=== PATIENT | female | born 1985 | race Caucasian/White ===

== ENCOUNTER 2023-07-08 09:59 | Outpatient (CLI) | payer OTHER, SELFPAY ==
[2023-07-08 18:46] LABS: Hematocrit 43.2 % (37.0-47.0); Hemoglobin 13.6 g/dL (12.0-15.0); Mean Corpuscular HGB Conc 31.5 g/dl (32-36); Mean Corpuscular Hemoglobin 31.1 pg (26-34); Mean Corpuscular Volume 98.9 fl (80-100); Mean Platelet Volume 10.7 fl (7.4-10.4); Platelet Count Result 329 k/mm3 (150-375); Red Blood Count 4.37 M/mm3 (4.2-5.4); Red Cell Distribution Width 12.6 % (11.5-14.5); White Blood Count 8.5 K/mm3 (4.5-10.0)
[2023-07-08 19:24] LABS: Alanine Aminotransferase 16 U/L (6-35); Albumin Level 4.3 g/dL (3.5-5.1); Alkaline Phosphatase 65 U/L (38-126); Anion Gap 7 mmol/L (8-16); Aspartate Amino Transferase 58 U/L (14-36); Bilirubin,Total 0.4 mg/dL (0.2-1.3); Blood Urea Nitrogen 10 mg/dL (7-17); Calcium 9.7 mg/dL (8.4-10.2); Carbon Dioxide 29 mmol/L (22-30); Chloride 105 mmol/L (98-107); Cholesterol 193 mg/dL (0-200); Estimated Glomerular Filt Rate > 60; Glucose 96 mg/dL (65-110); HDL Direct 53 mg/dL; Potassium 4.6 mmol/L (3.4-5.0); Sodium 141 mmol/L (137-145); Triglycerides 49 mg/dL (<150)
[2023-07-08 19:37] LABS: LDL Cholesterol Direct 126 mg/dL
== END 2023-07-08 10:00 | disposition home or self-care (01) ==
PROVIDERS: PCP Nurse Practitioner Adult Health; Visit Provider Nurse Practitioner Adult Health
DX: Z13.9 Encounter for screening, unspecified (principal); E07.9 Disorder of thyroid, unspecified; F41.9 Anxiety disorder, unspecified
CPT/HCPCS: 36415; 80053; 80061; 84443; 85027

== ENCOUNTER 2024-07-19 11:27 | Outpatient (CLI) | payer OTHER, SELFPAY ==
--- OUTSIDE RECORDS SUMMARY | 2024-07-19 12:46 | XMS_ITS | Encounter Summary ---
Author Organization [facility] Address [address] [place] [address] Care Team Providers Care Gas Plant Operator Name Role Phone Jameel Gorman MD Primary Care Provider [phone] Encounter Details Date Type Department Care Team (Late st Contact Info) Description 06/30/2007 Outpatient Historical [facility] [place] [address] [place] [address] Gurpreet Lew MD [address] [place] [address] Palpitations Social History Tobacco Use Types Packs/Day Years Used Date Smoking Tobacco: Never Assessed Comments Unknown Sex and Gender Information Value Date Recorded Sex Assigned at Not on file Legal Sex Female 3:43 AM AWNING HANGER Gender Identity Not on file Sexual Orientation Not on file documented as of this encounter Plan of Treatment Not on file documented as of this encounter Procedures Procedure Name Priority Date/Time Associated Diagnosis Comments CBC WITH DIFFERENTIAL Routine 06/30/2007 10:33 AM AWNING HANGER CBC WITH DIFFERENTIAL Routine 06/30/2007 10:33 AM AWNING HANGER TSH Routine 06/30/2007 10:33 AM AWNING HANGER MAGNESIUM LEVEL Routine 06/30/2007 10:33 AM AWNING HANGER LIPID PANEL Routine 06/30/2007 10:33 AM AWNING HANGER COMPREHENSIVE METABOLIC PANEL Routine 06/30/2007 10:33 AM AWNING HANGER documented in this encounter Results * CBC WITH DIFFERENTIAL (06/30/2007 10:33 AM AWNING HANGER) NEUTROPHILS 62 45 - 70 % INTERFAC E SYSTEM LYMPHOCYTES 28 16 - 45 % INTERFAC E SYSTEM MONOCYTES 7 3 - 13 % INTERFACE SYSTEM EOSINOPHILS 2 0 - 7 % INTERFAC E SYSTEM BASOPHILS 0 0 - 2 % INTERFACE SYSTEM NEUTROPHIL ABSOLUTE 4.95 1.90 - 7.00 K/uL INTERFACE SYSTEM LYMPHOCYTE ABSOLUTE 2.23 0.70 - 4.50 K/uL INTERFACE SYSTEM MONOCYTE ABSOLUTE 0.57 0.10 - 1.30 K/uL INTERFACE SYSTEM EOSINOPHIL ABSOLUTE 0.15 0.00 - 0.70 K/uL INTERFACE SYSTEM BASOPHILS ABSOLUTE 0.02 0.00 - 0.20 K/uL INTERFACE SYSTEM 06/30/2007 10:3 3 AM AWNING HANGER us Gurpreet Lwe MD HEMATOLOGY ORDERABLES Ed ited INTERFACE SYSTEM Refer to clinic/hospital department * (ABNORMAL) CBC WITH DIFFERENTIAL (06/30/2007 10:33 AM AWNING HANGER) Pathologist [facility] [place] WBC 7.9 4.0 - 9.8 K/uL INTERFACE SYSTEM RBC 4.66 3.90 - 4.90 M/uL INTERFACE SYSTEM HEMOGLOBIN 14.2 11.8 - 14.8 g/dL INTERFACE SYSTEM HEMATOCRIT 41.5 35.5 - 44.0 % INTERFACE SYSTEM MCV 89.1 82.0 - 99.0 fL INTERFACE SYSTEM MCH 30.5 27.2 - 32.6 pg INTERFACE SYSTEM MCHC 34.2 31.5 - 35.5 % INTERFACE SYSTEM RDW 12.6 11.5 - 14.5 % INTERFACE SYSTEM RDW-STDEV 39.9 37.1 - 48.7 fL INTERFACE SYSTEM PLATELETS 368(H) 140 - 350 K/uL INTERFACE SYSTEM MPV 10.9 9.3 - 12.4 fL INTERFACE SYSTEM 06/30/2007 10:3 3 AM AWNING HANGER Gurpreet Lew MD HEMATOLOGY ORDERABLES Ed ited INTERFACE SYSTEM Refer to clinic/hospital department * TSH (06/30/2007 10:33 AM AWNING HANGER) TSH 1.98 0.27 - 4.20 uU/mL INTERFACE SYSTEM 06/30/2007 10:3 3 AM AWNING HANGER Gurpreet Lew MD CHEMISTRY ORDERABLES Mynor mason Performing Organization Address City/[facility] Co de Phone Number INTERFACE SYSTEM Refer to clinic/hospital department * MAGNESIUM LEVEL (06/30/2007 10:33 AM AWNING HANGER) MAGNESIUM 2.1 1.5 - 2.5 mg/dL INTERFACE SYSTEM 06/30/2007 10:3 3 AM AWNING HANGER Gurpreet Lew MD CHEMISTRY ORDERABLES Mynor mason Performing Organization Address [facility] Co de Phone Number INTERFACE SYSTEM Refer to clinic/hospital department * (ABNORMAL) COMPREHENSIVE METABOLIC PANEL (06/30/2007 10:33 AM AWNING HANGER) GLUCOSE 88 65 - 99 mg/dL INTERFACE SYSTEM CREATININE 0.66 0.51 - 0.95 mg/dL INTERFACE SYSTEM CALCIUM 9.0 8.6 - 10.2 mg/dL INTERFACE SYSTEM AST 12 12 - 32 U/L INTERFACE SYSTEM ALKALINE PHOSPHATASE 61 35 - 104 U/L INTERFACE SYSTEM BILIRUBIN TOTAL 0.1(L) 0.2 - 1.0 mg/dL INTERFACE SYSTEM ALBUMIN 4.1 3.4 - 4.8 g/dL INTERFACE SYSTEM TOTAL PROTEIN 7.0 6.0 - 8.3 g/dL INTERFACE SYSTEM ALT 11 0 - 31 U/L INTERFACE SYSTEM BUN 8 6 - 20 mg/dL INTERFACE SYSTEM SODIUM 140 135 - 145 mmol/L INTERFACE SYSTEM POTASSIUM 4.0 3.5 - 4.9 mmol/L INTERFACE SYSTEM CHLORIDE 104 96 - 108 mmol/L INTERFACE SYSTEM CO2 28 22 - 30 mmol/L INTERFACE SYSTEM GFR, >60 >=60 mL/min/1. 7 sq meter INTERFACE SYSTEM GFR >60 >=60 mL/min/1. 7 sq meter INTERFACE SYSTEM Comment: Estimated GFR rate interpretative information for both Americans and non- Americans is available on the [facility] Intranet at: [email or web address] Select: Lab Policies and Procedures Select: Reference Ranges - GFR 06/30/2007 10:3 3 AM AWNING HANGER Gurpreet Lew MD CHEMISTRY ORDERABLES Mynor mason Performing Organization Address [facility] Phone Number INTERFACE SYSTEM Refer to clinic/hospital department * (ABNORMAL) LIPID PANEL (06/30/2007 10:33 AM AWNING HANGER) CHOLESTEROL 164 100 - 199 mg/dL INTERFACE SYSTEM TRIGLYCERIDE 51 10 - 149 mg/dL INTERFACE SYSTEM HDL 36(L) 40 - 59 mg/dL INTERFACE SYSTEM LDL CALCULATED 118(H) <=99 mg/dL INTERFACE SYSTEM CHOL/HDL RATIO 4.6 2.0 - 5.0 INTER FACE SYSTEM LIPID PANEL COMMENT See Below INTERFACE SYSTEM Comment: The adult ATP and pediatric NCEP classifications for lipids are available on the [facility] Intranet at: [email or web address] Select: Lab Policies and Procedures,Current Select: Lipid Panel Interpretation 06/30/2007 10:3 3 AM AWNING HANGER Gurpreet Lew MD CHEMISTRY ORDERABLES Mynor mason Performing Organization Address [facility] Co de Phone Number INTERFACE SYSTEM Refer to clinic/hospital department documented in this encounter Visit Diagnoses Diagnosis Palpitations documented in this encounter Care Teams Gas Plant Operator Relationship Specialty Start Date End Date Jameel Gorman MD PCP - General 11/23/08 documented as of this encounter
--- OUTSIDE RECORDS SUMMARY | 2024-07-19 12:46 | XMS_ITS | Encounter Summary ---
Author Organization [facility] Address [address] [place] [address] Care Team Providers Care Television Installer Name Role Phone Jameel Gorman MD Primary Care Provider [phone] Encounter Details Date Type Department Care Team (Late st Contact Info) Description 08/14/2007 Outpatient Historical [facility], Authorized P NO ADDRESS ON FILE Mook Rodgers MD [address] [place] [address] Social History Tobacco Use Types Packs/Day Years Used Date Smoking Tobacco: Never Assessed Comments Unknown Sex and Gender Information Value Date Recorded Sex Assigned at Not on file Legal Sex Female 3:43 AM CAPTAIN ROOM SERVICE Gender Identity Not on file Sexual Orientation Not on file documented as of this encounter Plan of Treatment Not on file documented as of this encounter Procedures Procedure Name Priority Date/Time Associated Diagnosis Comments US PELVIS + TRANSVAG NON OB Stat 08/14/2007 11:00 AM CAPTAIN ROOM SERVICE CBC WITH DIFFERENTIAL Stat 08/14/2007 10:19 AM CAPTAIN ROOM SERVICE LIPASE Stat 08/14/2007 10:19 AM CAPTAIN ROOM SERVICE HEPATIC FUNCTION PANEL Stat 08/14/2007 10:19 AM CAPTAIN ROOM SERVICE BASIC METABOLIC PANEL Stat 08/14/2007 10:19 AM CAPTAIN ROOM SERVICE URINALYSIS WITH REFLEX CULTURE Stat 08/14/2007 10:10 AM CAPTAIN ROOM SERVICE URINALYSIS W/REFLEX MICROSCOPIC Stat 08/14/2007 10:10 AM CAPTAIN ROOM SERVICE HCG QUALITATIVE, URINE Stat 08/14/2007 10:10 AM CAPTAIN ROOM SERVICE documented in this encounter Results * US PELVIS + TRANSVAG NON OB (08/14/2007 11:00 AM CAPTAIN ROOM SERVICE) Anatomical Region Laterality Modality Pelvis Other 08/14/2007 11:0 0 AM CAPTAIN ROOM SERVICE Narrative 08/14/2007 11:58 AM CAPTAIN ROOM SERVICE [address] [address] Admit Date: 08/14/2007 JOSE ANGELA R Sex: F Admit Prov: ER, AUTHORIZED P Date: 1985 Primary Care Prov: JIMI MCGARRY CMRN: [id number] Room: [facility] SSN: [id number] IMAGING SERVICES Ordering Prov: N/A Accession Number: [id number] Interpretation TRANSABDOMINAL PELVIC ULTRASOUND, 08/14/2007 History: Left pelvic pain. Findings: Patient reportedly refused endovaginal exam. The bladder is not filled. This in combination with patient's body habitus results in grossly suboptimal exam. The uterus is approximately 6.7 cm in length. The endometrium is poorly visualized. No large adnexal mass is seen. The uterus is approximately 3.2 cm in anterior-posterior dimension and 4.1 cm in width. Right ovary is approximately 3.9 x 2.1 cm in anterior-posterior dimension in length. The left ovary is approximately 2 x 2 x 3.1 cm. No cyst is seen. Summary: Limited exam. No definite abnormality. . Dictated by: MELISSA LU 08/14/2007 11:28 Electronically signed by: MELISSA LU 08/14/2007 11:58 Transcribed: 08/14/2007 11:39 MD Procedure Note Provider, Historical - 08/14/[address], [place] [address] Admit Date: 08/14/2007 ANGELA DOSHI Sex: F Admit Prov: YANCI NEWTON Date: 1985 Primary Care Prov: JIMI MCGARRY CMRN: [id number] [id number] IM[facility]ING [facility] Ordering Prov: N/A Interpretation TRANSABDOMINAL PELVIC ULTRASOUND, 08/14/2007 History: Left pelvic pain. Findings: Patient reportedly refused endovaginal exam. The bladder isnot filled. This in combination with patient's body habitus results ingrossly suboptimal exam. The uterus is approximately 6.7 cm in length. The endometrium is poorly visualized. No large adnexal mass is seen. Theuterus is approximately 3.2 cm in anterior-posterior dimension and 4.1 cmin width. Right ovary is approximately 3.9 x 2.1 cm inanterior-posterior dimension in length. The left ovary is approximately 2 x 2 x 3.1 cm.No cyst is seen. Summary: Limited exam. No definite abnormality. . Dictated by: MELISSA LU 08/14/2007 11:28 Electronically signed by: MELISSA LU 08/14/2007 11:58 Transcribed: 08/14/2007 11:39 MD Mook Rodgers MD ORDERABLES Final Result * (ABNORMAL) CBC WITH DIFFERENTIAL (08/14/2007 10:19 AM CAPTAIN ROOM SERVICE) RBC 4.72 3.90 - 4.90 M/uL [facility] MCHC 33.7 31.5 - 35.5 % [facility] MCV 89.2 82.0 - 99.0 fL [facility] PLATELETS 351(H) 140 - 350 K/uL [facility] HEMOGLOBIN 14.2 11.8 - 14.8 g/dL [facility] RDW 12.5 11.5 - 14.5 % [facility] WBC 8.7 4.0 - 9.8 K/uL [facility] MPV 10.3 9.3 - 12.4 fL [facility] MCH 30.1 27.2 - 32.6 pg [facility] HEMATOCRIT 42.1 35.5 - 44.0 % [facility] RDW-STDEV 39.7 37.1 - 48.7 fL [facility] LYMPHOCYTES 31 16 - 45 % [facility] LYMPHOCYTE ABSOLUTE 2.70 0.70 - 4.50 K/uL [facility] BASOPHILS 0 0 - 2 % [facility] BASOPHILS ABSOLUTE 0.02 0.00 - 0.20 K/uL [facility] MONOCYTES 5 3 - 13 % [facility] MONOCYTE ABSOLUTE 0.47 0.10 - 1.30 K/uL [facility] NEUTROPHILS 61 45 - 70 % [facility] NEUTROPHIL ABSOLUTE 5.36 1.90 - 7.00 K/uL [facility] EOSINOPHILS 2 0 - 7 % [facility] EOSINOPHIL ABSOLUTE 0.19 0.00 - 0.70 K/uL [facility] Blood specimen (specimen) 08/14/2007 10:19 AM CAPTAIN ROOM SERVICE 08/14/2007 10:20 AM CAPTAIN ROOM SERVICE us Mook Rodgers MD HEMATOLOGY ORDERABLES Edited [facility] [address] [place] [address] * (ABNORMAL) HEPATIC FUNCTION PANEL (08/14/2007 10:19 AM CAPTAIN ROOM SERVICE) BILIRUBIN TOTAL 0.3 0.2 - 1.0 mg/dL [facility] ALT 10 0 - 31 U/L [facility] AST 11(L) 12 - 32 U/L [facility] ALBUMIN 4.2 3.4 - 4.8 g/dL [facility] BILIRUBIN DIRECT <0.1 0.0 - 0.3 mg/dL [facility] TOTAL PROTEIN 7.4 6.0 - 8.3 g/dL [facility] ALKALINE PHOSPHATASE 62 35 - 104 U/L [facility] Blood specimen (specimen) 08/14/2007 10:19 AM CAPTAIN ROOM SERVICE 08/14/2007 10:20 AM CAPTAIN ROOM SERVICE Mook Rodgers MD CHEMISTRY ORDERABLES Final Res ult Performing Organization Address [facility] Co de Phone Number [facility] [address] [place] [address] * LIPASE (08/14/2007 10:19 AM CAPTAIN ROOM SERVICE) LIPASE 21 13 - 60 U/L [facility] Blood specimen (specimen) 08/14/2007 10:19 AM CAPTAIN ROOM SERVICE 08/14/2007 10:20 AM CAPTAIN ROOM SERVICE us Mook Rodgers MD CHEMISTRY ORDERABLES Final Res ult Performing Organization Address [facility] de Phone Number [facility] [address] [place] [address] * (ABNORMAL) BASIC METABOLIC PANEL (08/14/2007 10:19 AM CAPTAIN ROOM SERVICE) CO2 29 22 - 30 mmol/L [facility] CALCIUM 9.4 8.6 - 10.2 mg/dL [facility] POTASSIUM 3.9 3.5 - 4.9 mmol/L [facility] GLUCOSE 100(H) 65 - 99 mg/dL [facility] CHLORIDE 105 96 - 108 mmol/L [facility] BUN 8 6 - 20 mg/dL [facility] CREATININE 0.63 0.51 - 0.95 mg/dL [facility] SODIUM 141 135 - 145 mmol/L [facility] GFR, >60 >=60 mL/min/1. 7 sq meter [facility] GFR >60 >=60 mL/min/1. 7 sq meter [facility] Comment: Estimated GFR rate interpretative information for both Americans and non- Americans is available on the [facility] Intranet at: [email or web address] Select: Lab Policies and Procedures Select: Reference Ranges - GFR Blood specimen (specimen) 08/14/2007 10:19 AM CAPTAIN ROOM SERVICE 08/14/2007 10:20 AM CAPTAIN ROOM SERVICE Mook Rodgers MD CHEMISTRY ORDERABLES Edited Performing Organization Address City/[facility]/ZIP Co de Phone Number [facility] [address] [place] [address] * URINALYSIS (08/14/2007 10:10 AM CAPTAIN ROOM SERVICE) COLOR UA Yellow [facility] NITRITE UA Negative Negative [facility] BILIRUBIN UA Negative Negative [facility] PH UA 6.5 5.0 - 8.0 [facility] KETONES UA Negative Negative [facility] CLARITY UA Clear Clear [facility] BLOOD UA Negative Negative [facility] PROTEIN UA Negative Negative [facility] LEUKOCYTE ESTERASE UA Negative Negative [facility] UROBILINOGEN UA <1 <1 mg/dL [facility] SPECIFIC GRAVITY UA 1.015 1.001 - 1.035 [facility] GLUCOSE UA Negative Negative [facility] Urine, clean catch 08/14/2007 10:10 AM CAPTAIN ROOM SERVICE 08/14/2007 10:14 AM CAPTAIN ROOM SERVICE us Mook Rodgers MD URINE ORDERABLES Final Result Performing Organization Address [facility]/ZIP Co de Phone Number [facility] [address] [place] [address] * URINALYSIS WITH REFLEX CULTURE (08/14/2007 10:10 AM CAPTAIN ROOM SERVICE) URINE CULTURE ORDER Not Indicated [facility] Comment: Criteria for a reflex culture include one or more of the following: Abnormal WBCs, RBCs or bacteria. Lack of qualifying criteria does not exclude the possibility of a urinary tract infection. Dilute urine, drug interference, etc. may decrease the sensitivity of the criteria analytes. Urine, clean catch 08/14/2007 10:10 AM CAPTAIN ROOM SERVICE 08/14/2007 10:14 AM CAPTAIN ROOM SERVICE Mook Rodgers MD URINE ORDERABLES Final Result Performing Organization Address City/[facility]/ZIP Co de Phone Number [facility] [address] [place] [address] * BETA HCG QUALITATIVE, URINE (08/14/2007 10:10 AM CAPTAIN ROOM SERVICE) SPECIFIC GRAVITY UA 1.015 1.001 - 1.035 [facility] HCG QUAL URINE Negative Negative [facility] Urine specimen (specimen) 08/14/2007 10:10 AM CAPTAIN ROOM SERVICE 08/14/2007 10:14 AM CAPTAIN ROOM SERVICE Mook Rodgers MD URINE ORDERABLES Final Result Performing Organization Address City/[facility] Co de Phone Number [facility] [address] [place] [address] documented in this encounter Visit Diagnoses Not on filedocumented in this encounter Care Teams Television Installer Relationship Specialty Start Date End Date Jameel Gorman MD PCP - General 11/23/08 documented as of this encounter
--- OUTSIDE RECORDS SUMMARY | 2024-07-19 12:46 | XMS_ITS | Encounter Summary ---
Author Organization [facility] Address [address] [place] [address] Care Team Providers Care Safety Admin Assistant Name Role Phone Jameel Gorman MD Primary Care Provider [phone] Encounter Details Date Type Department Care Team (Latest Contact Info) Description 02/09/2000 Outpatient Historical [facility] Mook Rodgers MD [address] [place] [address] Sprain of ankle, unspecified site (Primary Dx) Social History Tobacco Use Types Packs/Day Years Used Date Smoking Tobacco: Never Assessed Comments Unknown Sex and Gender Information Value Date Recorded Sex Assigned at Not on file Legal Sex Female 3:43 AM 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
--- OUTSIDE RECORDS SUMMARY | 2024-07-19 12:46 | XMS_ITS | Encounter Summary ---
Author Organization [facility] Address [address] [place] [address] Care Team Providers Care Cashiers Supervisor Name Role Phone Jameel Gorman MD Primary Care Provider [phone] Encounter Details Date Type Department Care Team (Late st Contact Info) Description 10/04/[address] [facility] Medicine [place] [address] [place] [address] Gurpreet Lew MD [address] [place] [address] Social History Tobacco Use Types Packs/Day Years Used Date Smoking Tobacco: Never Assessed Comments Unknown Sex and Gender Information Value Date Recorded Sex Assigned at Not on file Legal Sex Female 3:43 AM EARLY CHILDHOOD DIRECTOR Gender Identity Not on file Sexual Orientation Not on file documented as of this encounter Plan of Treatment Not on file documented as of this encounter Visit Diagnoses Not on filedocumented in this encounter Care Teams Cashiers Supervisor Relationship Specialty Start Date End Date Jameel Gorman MD PCP - General 11/23/08 documented as of this encounter
--- OUTSIDE RECORDS SUMMARY | 2024-07-19 12:46 | XMS_ITS | Encounter Summary ---
Author Organization [facility] Address [address] [place] [address] Care Team Providers Care Cafeteria Cook Name Role Phone Jameel Gorman MD Primary Care Provider [phone] Encounter Details Date Type Department Care Team (Late st Contact Info) Description 09/01/2007 Outpatient Historical [facility] Medicine [place] [address] [place] [address] Gurpreet Lew MD [address] [place] [address] Social History Tobacco Use Types Packs/Day Years Used Date Smoking Tobacco: Never Assessed Comments Unknown Sex and Gender Information Value Date Recorded Sex Assigned at Not on file Legal Sex Female 3:43 AM 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
--- OUTSIDE RECORDS SUMMARY | 2024-07-19 12:46 | XMS_ITS | Encounter Summary ---
Author Organization [facility] Address [address] [place] [address] Care Team Providers Care Dyeing Machine Tender Name Role Phone Jameel Gorman MD Primary Care Provider [phone] Encounter Details Date Type Department Care Team (Late st Contact Info) Description 07/22/2007 Outpatient Historical [facility] Medicine [place] [address] [place] [address] Marge Ryan MD [address] [place] [address] Social History Tobacco Use Types Packs/Day Years Used Date Smoking Tobacco: Never Assessed Comments Unknown Sex and Gender Information Value Date Recorded Sex Assigned at Not on file Legal Sex Female 3:43 AM BEHAVIORAL HEALTH TECH Gender Identity Not on file Sexual Orientation Not on file documented as of this encounter Plan of Treatment Not on file documented as of this encounter Visit Diagnoses Not on filedocumented in this encounter Care Teams Dyeing Machine Tender Relationship Specialty Start Date End Date Jameel Gorman MD PCP - General 11/23/08 documented as of this encounter
--- OUTSIDE RECORDS SUMMARY | 2024-07-19 12:46 | XMS_ITS | Encounter Summary ---
Author Organization [facility] Address [address] [place] [address] Care Team Providers Care Tail End Rider Name Role Phone Jameel Gorman MD Primary Care Provider [phone] Encounter Details Date Type Department Care Team (Late st Contact Info) Description 07/27/2007 Outpatient Historical [facility] [employer] [address] [place] [address] Gustavo Herrera MD [address] [place] [address] Social History Tobacco Use Types Packs/Day Years Used Date Smoking Tobacco: Never Assessed Comments Unknown Sex and Gender Information Value Date Recorded Sex Assigned at Not on file Legal Sex Female 3:43 AM IMMIGRATION COORDINATOR Gender Identity Not on file Sexual Orientation Not on file documented as of this encounter Plan of Treatment Not on file documented as of this encounter Visit Diagnoses Not on filedocumented in this encounter Care Teams Tail End Rider Relationship Specialty Start Date End Date Jameel Gorman MD PCP - General 11/23/08 documented as of this encounter
--- OUTSIDE RECORDS SUMMARY | 2024-07-19 12:46 | XMS_ITS | Encounter Summary ---
Author Organization [facility] Address [address] [place] [address] Care Team Providers Care Loss Prevention And Safety Manager Name Role Phone Jameel Gorman MD Primary Care Provider [phone] Encounter Details Date Type Department Care Team (Late st Contact Info) Description 10/04/2007 Outpatient Historical [facility] Medicine [place] [address] [place] [address] Gurpreet Lew MD [address] [place] [address] Social History Tobacco Use Types Packs/Day Years Used Date Smoking Tobacco: Never Assessed Comments Unknown Sex and Gender Information Value Date Recorded Sex Assigned at Not on file Legal Sex Female 3:43 AM CUTTER TENDER Gender Identity Not on file Sexual Orientation Not on file documented as of this encounter Plan of Treatment Not on file documented as of this encounter Visit Diagnoses Not on filedocumented in this encounter Care Teams Loss Prevention And Safety Manager Relationship Specialty Start Date End Date Jameel Gorman MD PCP - General 11/23/08 documented as of this encounter
--- OUTSIDE RECORDS SUMMARY | 2024-07-19 12:46 | XMS_ITS | Encounter Summary ---
Author Organization [facility] Address [address] [place] [address] Care Team Providers Care Flavor Room Worker Name Role Phone Jameel Gorman MD Primary Care Provider [phone] Encounter Details Date Type Department Care Team (Late st Contact Info) Description 10/19/2007 Outpatient Historical [facility] Gurpreet Lew MD [address] [place] [address] Other, [facility] NO ADDRESS ON FILE Abdominal Pain, Right Lower Quadrant Social History Tobacco Use Types Packs/Day Years Used Date Smoking Tobacco: Never Assessed Comments Unknown Sex and Gender Information Value Date Recorded Sex Assigned at Not on file Legal Sex Female 3:43 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
--- OUTSIDE RECORDS SUMMARY | 2024-07-19 12:46 | XMS_ITS | Encounter Summary ---
Author Organization [facility] Address [address] [place] [address] Care Team Providers Care Manager Cancer Name Role Phone Jameel Gorman MD Primary Care Provider [phone] Encounter Details Date Type Department Care Team (Late st Contact Info) Description 09/01/2007 Outpatient Historical [facility] Medicine [place] [address] [place] [address] Gurpreet Lew MD [address] [place] [address] Social History Tobacco Use Types Packs/Day Years Used Date Smoking Tobacco: Never Assessed Comments Unknown Sex and Gender Information Value Date Recorded Sex Assigned at Not on file Legal Sex Female 3:43 AM MATRIX BATH OPERATOR Gender Identity Not on file Sexual Orientation Not on file documented as of this encounter Plan of Treatment Not on file documented as of this encounter Visit Diagnoses Not on filedocumented in this encounter Care Teams Manager Cancer Relationship Specialty Start Date End Date Jameel Gorman MD PCP - General 11/23/08 documented as of this encounter
--- OUTSIDE RECORDS SUMMARY | 2024-07-19 12:46 | XMS_ITS | Encounter Summary ---
Author Organization [facility] Address [address] [place] [address] Care Team Providers Care Lead Consultant Name Role Phone Jameel Gorman MD Primary Care Provider [phone] Encounter Details Date Type Department Care Team (Late st Contact Info) Description 07/22/2007 Orders Only [facility] Medicine [place] [address] [place] [address] Elsi Mehta NP [address] [place] [address] Social History Tobacco Use Types Packs/Day Years Used Date Smoking Tobacco: Never Assessed Comments Unknown Sex and Gender Information Value Date Recorded Sex Assigned at Not on file 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 BLOOD PRESSURE: 102/70. Right Arm Sitting PULSE: 82. Right Radial, Regular RESPIRATIONS: 16. TEMPERATURE: 96.2??f. Tympanic MEDICATIONS: Patient is taking no medications at present. TOBACCO USE: Patient is a current tobacco user. CHIEF COMPLAINT Patient complains of headache. concerns about the pain on the sides of her head. HISTORY: HISTORY OF PRESENT ILLNESS: HEADACHE: The symptoms began approximately 4 days ago. The frequency is variable. The duration is variable. The headache is poorly localized. The patient has symptoms of ear pain, has no symptoms of muscle aches, has symptoms of neck pain, has no symptoms of neck stiffness, has symptoms of photophobia, has symptoms of nasal congestion, has symptoms of nausea, has symptoms of sinus congestion, hasno symptoms of spinning sensation, has no symptoms of unsteadiness when walking, has no symptoms ofvisual changes, has symptoms of vomiting. There is pain present that is described as throbbing. Theseverity is an 8 on a scale of 1-10. The symptoms have been of variable duration with each episode.Associated conditions include childhood headaches. The side of her skull hurt when she turns her head and has been this way for the past couple weeks. Also notes some ear aches. Thursday her headache was all day. Tried excedrin tension and sinus medication for headaches. Notes a throbbing feeling prior to the headache. Has recurrent sinus problems. CURRENT ALLERGY LIST: NKDA ROS: GENERAL: See HISTORY OF PRESENT ILLNESS. ALLERGIC/IMMUNOLOGIC: . Reviewed. No change. EYES: No vision changes or diplopia. ENT: See HISTORY OF PRESENT ILLNESS. CARDIAC: No chest pain, palpitations, orthopnea, dyspnea on exertion, or paroxysmal nocturnal dyspnea. RESPIRATORY: No dyspnea, cough, hemoptysis or wheezing. : No frequency, urgency, hematuria or dysuria. c/o of horrible periods since biopsy. Followed by Dr. Landaverde. Currently and in monogamous relationship. GI: HAS BEEN NAUSEATED. NEUROLOGIC: No lightheadedness, HAS HEADACHES. Started Thursday morning. PHYSICAL EXAMINATION: CONSTITUTIONAL: GENERAL APPEARANCE: Healthy appearing patient in no distress. EYES: CONJUNCTIVAE/LIDS: Conjunctivae and lids appear normal. PUPILS: Pupils equal and normally reactive to light and accommodation. EARS, NOSE, MOUTH AND THROAT: EXTERNAL/EARS AND NOSE: Overall appearance normal with no scars, lesions or masses. EARS: Tympanic membranes shiny without retraction. Canals unremarkable. Hearing grossly normal. NOSE (AND SINUS): BLOOD TINGED NASAL DISCHARGE NOTED BILATERALLY, GREEN NASAL DISCHARGE NOTED BILATERALLY, TURBINATES INFLAMED BILATERALLY, TURBINATES SWOLLEN BILATERALLY, FRONTAL SINUSES ARE TENDER BILATERALLY. ORAL: ERYTHEMA NOTED ON THE POSTERIOR PHARYNX, HALITOSIS NOTED FROM THE POSTERIOR PHARYNX. NECK/THYROID: Trachea midline. No thyroid enlargement, tenderness, or mass. No supraclavicular or cervical adenopathy. RESPIRATORY: Clear to auscultation and percussion. Normal respiratory effort. CARDIOVASCULAR: CARDIAC: Regular rhythm. No murmurs, rubs, or gallops. GASTROINTESTINAL: ABDOMEN: Soft, non-tender, without masses. Bowel sounds active. LIVER/SPLEEN/KIDNEY: No hepatosplenomegaly, tenderness or nodularity. Kidneys not palpable. NEUROLOGIC: CRANIAL NERVES: event sales representative II-XII grossly intact. OFFICE PROCEDURES: RAPID FLU: The rapid flu test done in the office was negative. URINALYSIS RESULTS WBC: WBC`s were negative. NITRITE: nitrites were negative. UROBILINOGEN urobilinogen was normal. PROTEIN: protein was negative. pH: pH was 5. U/A BLOOD: blood was negative. SPECIFIC GRAVITY: specific gravity was 1.025. KETONES: ketones were small. BILIRUBIN: bilirubin was negative. GLUCOSE: glucose was negative. ASSESSMENT/PLAN: 461.9-SINUSITIS UNSPECIFIED ASSESSMENT: The patient's acute sinusitis has worsened. The patient's sinusitis appears to have a bacterial component and warrants antibiotic medication. Will check laboratory. STATUS: New. MEDICATIONS: AUGMENTIN ORAL TABLET 875-125 MG TABLETS, 1 tab po bid x 12 days, 24 Dispensed, status: NEW PRESCRIPTION, 07/22/2007. LAB ORDERS: Order number: [id number] Test Ordered: RAPID FLU 22278 PATIENT EDUCATION: Instructed on disease process and medication. Increase fluids. Follow up at office if symptoms persist. 784.0-HEADACHE ASSESSMENT: The patient's headaches have not changed. Will start medication for better control. Maybe tension type. Also appears to have sinus infection. STATUS: Unchanged. MEDICATIONS: SKELAXIN ORAL TABLET 800 MG, 1 tab po qid as needed for muscle pain, 3 Duration/Days Supply, 3 samples given, status: NEW PRESCRIPTION, 07/22/2007. ULTRACET ORAL TABLET 37.5-325 MG TABLETS, 1 to 2 tab po every 6 hours as needed for pain, 40 Dispensed, status: NEW PRESCRIPTION, 07/22/2007. PATIENT EDUCATION: Instructed on disease process and medication. Go to ER if symptoms worsen. Follow up at office if symptoms persist. 787.02-NAUSEA ASSESSMENT: The patient's nausea has improved. Will not change medication, continue to monitor for complications. Will check laboratory. STATUS: Improved. LAB ORDERS: Order number: [id number] Test Ordered: URINALYSIS W/O MICRO [id number] PATIENT EDUCATION: Instructed on BRAT diet. Increase fluids. Follow up at office if symptoms persist. RETURN VISIT: Patient is to return on an as needed basis. Electronically Signed by: HE Rios on Monday, July 23, 2007 Electronically Signed by: Marge Ryan MD on Wednesday, July 25, 2007 documented in this encounter Plan of Treatment Not on file documented as of this encounter Visit Diagnoses Not on filedocumented in this encounter Care Teams Lead Consultant Relationship Specialty Start Date End Date Jameel Gorman MD PCP - General 11/23/08 documented as of this encounter
--- OUTSIDE RECORDS SUMMARY | 2024-07-19 12:46 | XMS_ITS | Encounter Summary ---
Author Organization [facility] Address [address] [place] [address] Care Team Providers Care Draw Tender Name Role Phone Jameel Gorman MD Primary Care Provider Encounter Details Date Type Department Care Team (Late st Contact Info) Description 10/04/2007 Outpatient Historical [facility] Medicine [place] [address] [place] [address] RD [address] [place] [address] Gurpreet Lew MD [address] [place] [address] Dysmenorrhea Social History Tobacco Use Types Packs/Day Years Used Date Smoking Tobacco: Never Assessed Comments Unknown Sex and Gender Information Value Date Recorded Sex Assigned at Not on file 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 Gender Identity Not on file Sexual Orientation Not on file documented as of this encounter Plan of Treatment Not on file documented as of this encounter Procedures Procedure Name Priority Date/Time Associated Diagnosis Comments PROLACTIN Routine 10/04/2007 3:45 PM CDT HCG QUANTITATIVE, BLOOD Routine 10/04/2007 3:45 PM CDT GC/CHLAMYDIA, GENITAL Routine 10/04/2007 3:30 PM CDT documented in this encounter Results * HCG QUANTITATIVE, BLOOD (10/04/2007 3:45 PM CDT) HCG QUANT, BLOOD 0.1 0.0 - 5.0 mIU/mL [facility] Comment: A result of 5-25 mIU/mL is indeterminant for , recommend repeating test in 48 hours. Reference Range: Gestational Age: 3 weeks 5.8 - 71.2 mIU/mL 4 weeks 9.5 - 750 mIU/mL 5 weeks 217 - 7,138 mIU/mL 6 weeks 158 - 31,795 mIU/mL 7 weeks 3,697 - 163,563 mIU/mL 8 weeks 32,065 - 149,571 mIU/mL 9 weeks 63,803 - 151,410 mIU/mL 10 weeks 46,509 - 186,977 mIU/mL 12 weeks 27,832 - 210,612 mIU/mL 14 weeks 13,950 - 62,530 mIU/mL 15 weeks 12,039 - 70,971 mIU/mL 16 weeks 9,040 - 56,451 mIU/mL 17 weeks 8,175 - 55,868 mIU/mL 18 weeks 8,099 - 58,176 mIU/mL Heterophile antibodies and other interfering substances in the serum of some patients may cause a false-positive result in this assay. Before making a diagnosis of malignancy or ectopic , the result of this test should be confirmed with a urine HCG test and correlated with other clinical evidence. Blood specimen (specimen) 10/04/2007 3:45 PM CDT 10/04/2007 6:12 PM CDT us Gurpreet Lew MD CHEMISTRY ORDERABLES Fin al Result [facility] [address] [place] [address] * PROLACTIN (10/04/2007 3:45 PM CDT) Pathologist [facility] PROLACTIN 9.45 4.79 - 23.30 ng/mL [facility] Comment: Female: Non- Reference Range 18 years - Adult = 4.79 - 23.30 ng/mL No Reference Range Established for patients less than 18 years of age. Blood specimen (specimen) 10/04/2007 3:45 PM CDT 10/04/2007 6:12 PM CDT Gurpreet Lew MD CHEMISTRY ORDERABLES Fin al Result Performing Organization Address [facility] Co de Phone Number [facility] [address] [place] [address] * GC AND CHLAMYDIA PROBE (10/04/2007 3:30 PM CDT) PRELIMINARY REPORT Pending [facility] FINAL REPORT No Neisseria gonorrhoeae detected. No Chlamydia trachomatis detected. [facility] Endocervical 10/04/2007 3:30 PM CDT 10/05/2007 9:36 AM CDT Narrative [facility] - 10/05/2007 12:15 PM CDT All identification methods for Chlamydia trachomatis and Neisseria gonorrhoeae can yield false positive results. In circumstances where diagnosis could lead to adverse psychosocial impacts, additional testing is recommended. A negative test result does not exclude infection. Consultation with the lab is recommended whenever the test result is negative and the clinical indications strongly suggest Chlamydial or Gonorrhoeal infection. Culture is the only recommended procedure for diagnosing Chlamydial or Gonorrhoeal infection in cases of suspected child abuse. All identification methods for Chlamydia trachomatis and Neisseria gonorrhoeae can yield false positive results. In circumstances where diagnosis could lead to adverse psychosocial impacts, additional testing is recommended. A negative test result does not exclude infection. Consultation with the lab is recommended whenever the test result is negative and the clinical indications strongly suggest Chlamydial or Gonorrhoeal infection. Culture is the only recommended procedure for diagnosing Chlamydial or Gonorrhoeal infection in cases of suspected child abuse. Gurpreet Lew MD MICRO - GEN ORDERABLES C OM Final Result Performing Organization Address [facility]/ZIP Co de Phone Number [facility] [address] [place] [address] documented in this encounter Visit Diagnoses Diagnosis Dysmenorrhea documented in this encounter Care Teams Draw Tender Relationship Specialty Start Date End Date Jameel Gorman MD PCP - General 11/23/08 documented as of this encounter
--- OUTSIDE RECORDS SUMMARY | 2024-07-19 12:46 | XMS_ITS | Encounter Summary ---
Author Organization [facility] [employer] Address 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
--- OUTSIDE RECORDS SUMMARY | 2024-07-19 12:46 | XMS_ITS | Encounter Summary ---
Author Organization [facility] Address [address] [place] [address] Care Team Providers Care Photovoltaic Solar Cell Designer Name Role Phone Jameel Gorman MD Primary Care Provider [phone] Encounter Details Date Type Department Care Team (Late st Contact Info) Description 05/10/2007 Outpatient Historical [facility] [place] [address] [place] [id number] Justus Landaverde MD 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
--- OUTSIDE RECORDS SUMMARY | 2024-07-19 12:46 | XMS_ITS | Encounter Summary ---
Author Organization [facility] Address [address] [place] [address] Care Team Providers Care Fabric Worker Name Role Phone Jameel Gorman MD Primary Care Provider [phone] Encounter Details Date Type Department Care Team (Late st Contact Info) Description 07/22/2007 Outpatient Historical [facility] Medicine [place] [address] [place] [address] Elsi Mehta, TURNING SANDER OPERATOR [address] [place] [address] Social History Tobacco Use Types Packs/Day Years Used Date Smoking Tobacco: Never Assessed Comments Unknown Sex and Gender Information Value Date Recorded Sex Assigned at Not on file Legal Sex Female 3:43 AM 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
--- OUTSIDE RECORDS SUMMARY | 2024-07-19 12:46 | XMS_ITS | Referral Summary ---
Author Organization [facility] Address [address] [place] [address] Care Team Providers Care Aerial Tram Operator Name Role Phone Jameel Gorman MD Primary Care Provider [phone] Source Comments [facility],non-owned Affiliates and Associated Physician Practices is amultiple site organization consisting of ambulatory clinics and hospital sitesin [place], [place], [place] and [place]. This disclosure is being madepursuant to the Care Everywhere program and may not contain all information available regarding this patient. Last updated 18.[facility] Social History Tobacco Use Types Packs/Day Years Used Date Smoking Tobacco: Never Assessed Sex and Gender Information Value Date Recorded Sex Assigned at Not on file Gender Identity Not on file Sexual Orientation Not on file Plan of Treatment Not on file Care Teams Aerial Tram Operator Relationship Specialty Start Date End Date Jameel Gorman MD [address] [place] [address] PCP - General 10/17/09
--- OUTSIDE RECORDS SUMMARY | 2024-07-19 12:46 | XMS_ITS | Encounter Summary ---
Author Organization [facility] Address 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
--- OUTSIDE RECORDS SUMMARY | 2024-07-19 12:46 | XMS_ITS | Encounter Summary ---
Author Organization [employer] Address [address] [place] [address] Care Team Providers Care Clinical Product Specialist Name Role Phone Jameel Gorman MD Primary Care Provider [phone] Encounter Details Date Type Department Care Team (Latest Contact Info) Description 11/17/2007 Outpatient Historical [facility] Justus Landaverde MD 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 Gender Identity Not on file Sexual Orientation Not on file documented as of this encounter Plan of Treatment Not on file documented as of this encounter Procedures Procedure Name Priority Date/Time Associated Diagnosis Comments HIV DETECTION W/REFLX CONFIRMATION Routine 11/17/2007 10:46 AM CDT HEPATITIS B SURFACE ANTIGEN Routine 11/17/2007 10:46 AM CDT HEPATITIS C ANTIBODY Routine 11/17/2007 10:46 AM CDT HEPATITIS B CORE IGM Routine 11/17/2007 10:46 AM CDT HEPATITIS A IGM Routine 11/17/2007 10:46 AM CDT RPR Routine 11/17/2007 10:46 AM CDT documented in this encounter Results * HEPATITIS B CORE IGM (11/17/2007 10:46 AM CDT) Pathologist [facility] HEPATITIS B CORE IGM NON-REACT PARVEZ NON-REACT PARVEZ [facility] Comment: Lab test performed by: [email or web address] [address] BERTRAND MCINTYRE MD Blood specimen (specimen) 11/17/2007 10:46 AM CDT 11/17/2007 10:47 AM CDT Justus Landaverde MD CHEMISTRY ORDERABLES Final Res ult Performing Organization Address [facility] de Phone Number [facility] CLIA# [id number] [address] [place] [address] * HEPATITIS C ANTIBODY (11/17/2007 10:46 AM CDT) Pathologist [facility] HEPATITIS C AB NON-REACT PARVEZ NON-REACT PARVEZ [facility] SIGNAL TO CUT OFF 0.09 <1.00 [facility] Comment: Lab test performed by: [email or web address] [address] BERTRAND MCINTYRE MD Blood specimen (specimen) 11/17/2007 10:46 AM CDT 11/17/2007 10:47 AM CDT Justus Landaverde MD CHEMISTRY ORDERABLES Final Res ult Performing Organization Address [facility] Co de Phone Number [facility] CLIA# [id number] [address] [place] [address] * HEPATITIS A IGM (11/17/2007 10:46 AM CDT) Pathologist [facility] HEPATITIS A IGM NON-REACT PARVEZ NON-REACT PARVEZ [facility] Comment: Lab test performed by: [email or web address] [address] BERTRAND MCINTYRE MD Blood specimen (specimen) 11/17/2007 10:46 AM CDT 11/17/2007 10:47 AM CDT us Justus Landaverde MD CHEMISTRY ORDERABLES Final Res ult Performing Organization Address [facility] Co de Phone Number [facility] CLIA# [id number] [address] [place] [address] * HEPATITIS B SURFACE ANTIGEN (11/17/2007 10:46 AM CDT) HEPATITIS B SURFACE AG NON-REACT PARVEZ NON-REACT PARVEZ [facility] Comment: Lab test performed by: [email or web address] [address] BERTRAND MCINTYRE MD Blood specimen (specimen) 11/17/2007 10:46 AM CDT 11/17/2007 10:47 AM CDT us Justus Landaverde MD CHEMISTRY ORDERABLES Final Res ult Performing Organization Address [facility] Co de Phone Number [facility] CLIA# [id number] [address] [place] [address] * RPR (11/17/2007 10:46 AM CDT) Pathologist [facility] RPR NON-REACTI VE NON-REACT PARVEZ [facility] Comment: Lab test performed by: [facility] [address] [address] [place] [address] BERTRAND MCINTYRE MD Blood specimen (specimen) 11/17/2007 10:46 AM CDT 11/17/2007 10:47 AM CDT us Justus Landaverde MD CHEMISTRY ORDERABLES Final Res ult Performing Organization Address [facility] Co de Phone Number [facility] CLIA# [id number] [address] [place] [address] * HIV ANTIBODY W/REFLX CONFIRMATION (11/17/2007 10:46 AM CDT) HIV-1 AND 2 ABS NON-REACT PARVEZ NON-REACT PARVEZ [facility] Comment: A NON-REACTIVE HIV 1/2 ANTIBODY RESULT DOES NOT EXCLUDE HIV INFECTION SINCE THE TIME FRAME FOR SEROCONVERSION IS VARIABLE. IF ACUTE HIV INFECTION IS SUSPECTED, ANTIBODY RETESTING AND NUCLEIC ACID AMPLIFICATION (HIV DNA/RNA) TESTING IS RECOMMENDED. Lab test performed by: [email or web address] [address] BERTRAND MCINTYRE MD Effective November 09, 2006, HIV 1/2 Antibody Screen with Reflexed Confirmation has replaced HIV-1 Antibody Screen. HIV-1 Antibody Screen is no longer offered due to lack of available kits from the filleter. Blood specimen (specimen) 11/17/2007 10:46 AM CDT 11/17/2007 10:47 AM CDT us Justus Landaverde MD CHEMISTRY ORDERABLES Final Res ult [facility] CLIA# [id number] [address] [place] [address] documented in this encounter Visit Diagnoses Diagnosis Contact with or exposure to venereal diseases documented in this encounter Care Teams Clinical Product Specialist Relationship Specialty Start Date End Date Jameel Gorman MD PCP - General 11/23/08 documented as of this encounter
--- OUTSIDE RECORDS SUMMARY | 2024-07-19 12:46 | XMS_ITS | Encounter Summary ---
Author Organization [facility] Address [address] [place] [address] Care Team Providers Care Auto Vinyl Top Installer Name Role Phone Jameel Gorman MD Primary Care Provider [phone] Encounter Details Date Type Department Care Team (Late st Contact Info) Description 09/01/2007 Outpatient Historical [facility] [place] [address] [place] [address] Gurpreet Lew MD [address] [place] [address] Social History Tobacco Use Types Packs/Day Years Used Date Smoking Tobacco: Never Assessed Comments Unknown Sex and Gender Information Value Date Recorded Sex Assigned at Not on file Legal Sex Female 3:43 AM CAMPUS EXECUTIVE DIRECTOR Gender Identity Not on file Sexual Orientation Not on file documented as of this encounter Plan of Treatment Not on file documented as of this encounter Visit Diagnoses Not on filedocumented in this encounter Care Teams Auto Vinyl Top Installer Relationship Specialty Start Date End Date Jameel Gorman MD PCP - General 11/23/08 documented as of this encounter
--- OUTSIDE RECORDS SUMMARY | 2024-07-19 12:46 | XMS_ITS | Encounter Summary ---
Author Organization [employer] Address 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
--- OUTSIDE RECORDS SUMMARY | 2024-07-19 12:46 | XMS_ITS | Encounter Summary ---
Author Organization [employer] Address [address] [place] [address] Care Team Providers Care Park Superintendent Name Role Phone Jameel Gorman MD Primary Care Provider [phone] Encounter Details Date Type Department Care Team (Latest Contact Info) Description 03/25/2006 Outpatient Historical [facility] Ashley Blevins MD [address] [place] [address] [place] [address] Neck Sprain and Strain (Primary Dx) Social History Tobacco Use Types Packs/Day Years Used Date Smoking Tobacco: Never Assessed Comments Unknown Sex and Gender Information Value Date Recorded Sex Assigned at Not on file Legal Sex Female 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
--- OUTSIDE RECORDS SUMMARY | 2024-07-19 12:46 | XMS_ITS | Encounter Summary ---
Author Organization [facility] Address [address] [place] [address] Care Team Providers Care Congressional Representative Name Role Phone Jameel Gorman MD Primary Care Provider [phone] Encounter Details Date Type Department Care Team (Late st Contact Info) Description 09/01/2007 Orders Only [facility] [address] [place] [address] Gurpreet Lew MD [address] [place] [address] Social History Tobacco Use Types Packs/Day Years Used Date Smoking Tobacco: Never Assessed Comments Unknown Sex and Gender Information Value Date Recorded Sex Assigned at Not on file 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 BLOOD PRESSURE: 120/80. Right Arm Sitting PULSE: 74. Right Radial, Regular RESPIRATIONS: 16. TEMPERATURE: 97??f. Oral ALLERGIES: No known drug allergies. MEDICATIONS: Medication list current. TOBACCO USE: Patient is a current tobacco user. CHIEF COMPLAINT poss sinus infection HISTORY: 21 year old female here with c/o sinus infection. Feels like the abx didn't help. Still has sinus mitchell and pressure. Increased pain with turning head, bending over. Constant pain. Little worsein the morning. Chronic nausea. No vision changes. Sinus are always congested. Mild prod cough. Teeth are hurting. Watery eyes. No fevers. No ear pain, sore throat. Also has some pain at the base of her neck. Feels very tense. Pt wanting to quit smoking. Has heard about chantix. CURRENT PROBLEM LIST: 278.00 OBESITY UNSPECIFIED 305.1 TOBACCO ABUSE 461.9 SINUSITIS UNSPECIFIED 784.0 HEADACHE 785.1 PALPITATIONS 787.02 NAUSEA 790.6 ABNORMAL BLOOD CHEMISTRY LEVELS 795.00 ABNORMAL PAP 796.2 BLOOD PRESSURE ELEVATED W/O DX OF HTN V17.41 HX, FAMILY, SUDDEN CARDIAC CURRENT MEDICATION LIST: SKELAXIN ORAL TABLET 800 MG, 1 tab po qid as needed for muscle pain ULTRACET ORAL TABLET 37.5-325 MG, 1 to 2 tab po every 6 hours as needed for pain VALIUM ORAL TABLET 5 MG, prn NAPROXEN SODIUM ORAL TABLET 550 MG, prn VICODIN ORAL TABLET 5-500 MG, prn CURRENT ALLERGY LIST: NKDA ROS: GENERAL: No chills, no fever. ENT: No earaches noted, NASAL STUFFINESS NOTED, SINUS CONGESTION NOTED, no complaints of a sore throat. RESPIRATORY: HAS A COUGH, no shortness of breath. MUSCULOSKELETAL: See HISTORY OF PRESENT ILLNESS. Patient's history reviewed; no changes. PAST MEDICAL HISTORY: MEDICAL: No significant history of medical diseases. SURGICAL: No previous surgery. CURRENT MEDICATIONS: Patient is currently on no medication. ALLERGIES/ADVERSE REACTIONS: No known drug allergies. FAMILY HISTORY: FATHER: The father is . MOTHER: The mother is . The cause of was myocardial infarction. at age 27 SIBLINGS: One sibling.sister, thyroid problems CHILDREN: None. SOCIAL HISTORY: MARITAL HISTORY: , living with spouse. LIVING WILL: The patient does not have a living will. TOBACCO USE: Currently smokes 2 PPD, has smoked for 5 to 10 years. 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 ALCOHOL: The patient drinks alcohol 5 to 6 times per day. EXERCISES: The patient is not exercising regularly. DIET: Follows no specific diet. ILLICIT DRUG USE: Denies illicit drug use. PHYSICAL EXAMINATION: CONSTITUTIONAL: GENERAL APPEARANCE: Healthy appearing patient in no distress. EARS, NOSE, MOUTH AND THROAT: EXTERNAL/EARS AND NOSE: Overall appearance normal with no scars, lesions or masses. EARS: Tympanic membranes shiny without retraction. Canals unremarkable. NOSE (AND SINUS): FRONTAL SINUSES ARE TENDER BILATERALLY, MAXILLARY SINUSES ARE TENDER BILATERALLY,YELLOW NASAL DISCHARGE NOTED BILATERALLY. erythematous. ORAL: COBBLE STONING NOTED ON THE POSTERIOR PHARYNX, ERYTHEMA NOTED ON THE POSTERIOR PHARYNX. NECK/THYROID: REDUCED RIGHT ROTARY NECK MOTION, REDUCED LEFT ROTARY NECK MOTION. tense musculature. RESPIRATORY: Clear to auscultation and percussion. Normal respiratory effort. CARDIOVASCULAR: CARDIAC: Regular rhythm. No murmurs, rubs, or gallops. ASSESSMENT/PLAN: 305.1-TOBACCO ABUSE ASSESSMENT: The patient continues to smoke and was strongly advised to discontinue tobacco productscompletely. Will start medication for better control. MEDICATIONS: CHANTIX STARTING MONTH BESSY ORAL MISCELLANEOUS 0.5 MG X 11 & 1 MG X 42, as directed, 30 Duration/Days Supply, status: NEW PRESCRIPTION, 09/01/2007. LAB ORDERS: Order number: [id number] Test Ordered: SMOKING CESSATION, 3-10 MIN 39173 461.9-SINUSITIS UNSPECIFIED ASSESSMENT: The patient's acute sinusitis has not changed. The patient's sinusitis appears to have a bacterial component and warrants antibiotic medication. Chronic in nature. Rest/fluids. Precautions. MEDICATIONS: CLINDAMYCIN HCL ORAL CAPSULE CONVENTIONAL 300 MG, 1 Two Times A Day x 10 days, 20 Dispensed, 10 Duration/Days Supply, status: NEW PRESCRIPTION, 09/01/2007. VERAMYST NASAL SUSPENSION 27.5 MCG/SPRAY, 1 spray daily, 1 Dispensed, 1 samples given, status: NEW PRESCRIPTION, 09/01/2007. 784.0-HEADACHE ASSESSMENT: The patient's headaches have not changed. Will start medication for better control. Heat, stretches, massage. Trial of flexeril- precautions. MEDICATIONS: FLEXERIL ORAL TABLET 10 MG, 1 Every Eight Hours, As Needed, 30 Dispensed, 10 Duration/Days Supply, status: NEW PRESCRIPTION, 09/01/2007. RETURN VISIT: Patient is to return on an as needed basis. Electronically Signed by: Gurpreet Lew MD on Wednesday, September 05, 2007 documented in this encounter Plan of Treatment Not on file documented as of this encounter Visit Diagnoses Not on filedocumented in this encounter Care Teams Congressional Representative Relationship Specialty Start Date End Date Jameel Gorman MD PCP - General 11/23/08 documented as of this encounter
--- OUTSIDE RECORDS SUMMARY | 2024-07-19 12:46 | XMS_ITS | Encounter Summary ---
Author Organization [facility] Address [address] [place] [address] Care Team Providers Care Ornament Stapler Name Role Phone Jameel Gorman MD Primary Care Provider [phone] Encounter Details Date Type Department Care Team (Late st Contact Info) Description 07/22/2007 Outpatient Historical [facility] [place] [address] [place] [address] Marge Ryan MD [address] [place] [address] Social History Tobacco Use Types Packs/Day Years Used Date Smoking Tobacco: Never Assessed Comments Unknown Sex and Gender Information Value Date Recorded Sex Assigned at Not on file 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
--- OUTSIDE RECORDS SUMMARY | 2024-07-19 12:46 | XMS_ITS | Encounter Summary ---
Author Organization [employer] [facility] Address [address] [place] [address] Care Team Providers Care Consultant Luxury And Auto. 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 Gender Identity Not on file Sexual Orientation Not on file documented as of this encounter Plan of Treatment Not on file documented as of this encounter Procedures Procedure Name Priority Date/Time Associated Diagnosis Comments NM MYOCARD PERF IMAG SPECT MULT Routine 07/27/2007 7:27 AM RADIO FREQUENCY ENGINEER documented in this encounter Results * NM MYOCARD PERF IMAG SPECT MULT (07/27/2007 7:27 AM RADIO FREQUENCY ENGINEER) 07/27/2007 7:27 AM RADIO FREQUENCY ENGINEER Narrative INTERFACE SYSTEM - 07/27/2007 3:50 PM RADIO FREQUENCY ENGINEER [address] [address] Imaging Services Procedure Completion Date Ordering Provider Accession Number NM Myocardial 07/27/2007 JIMI LEW [id number] Scan Spect 10:01:00 AM Multiple [P] Reason for Exam: v17.41 family history cad Interpretation Date of Procedure: 07/27/2007 Procedure Type: 1 Day Exercise Stress Myocardial Perfusion Study Clinical Indication: 21-year-old female with chest pain and palpitations. She has a strongly positive family history of coronary disease with her mother having a heart attack in her 20s. Other risk factors for coronary artery disease includes smoking. Exercise Stress Procedure: The patient exercised for 7 minutes and 50 seconds on a Pedro protocol, achieving an estimated workload of 10 METS. The resting heart rate was 94 bpm, and increased to 176 bpm at peak exercise, which was 89 % of the predicted maximum heart rate. Nuclear Imaging Protocol: Myocardial perfusion imaging was performed at rest approximately 60 minutes following the intravenous injection of 10.4 mCi TC99m Myoview. At peak exercise, the patient was injected intravenously with 40.4 mCi TC99m Myoview and exercise was continued for 2 minutes. Gated post-stress tomographic imaging was performed approximately 30 minutes later in same manner. SPECT reconstruction was performed in the short, vertical long and horizontal long axis views in both rest and stress image sets. Findings: There is normal perfusion to all myocardial segments during both stress and rest imaging. There is no ischemia. Gated SPECT examination reveals normal left ventricular cavity size. There is normal left ventricular wall motion. LVEF 73 %. Admit Date: 07/27/2007 JOSE ANGELA R Sex: F Admitting MD: JIMI LEW Birthdate: 1985 rotor blade installer:JIMI LEW CMRN:[id number] Room: [facility]: [id number] [address] Imaging Services Procedure Completion Date Ordering Provider Accession Number NM Myocardial 07/27/2007 JIMI LEW [id number] Scan Spect 10:01:00 AM Multiple [P] Impression: 1. Normal myocardial perfusion study. No ischemia. 2. Normal gated SPECT examination. Normal left ventricular wall motion. LVEF 73 %. 3. Good exercise capacity. 4. Results of exercise treadmill stress test reported separately. . Dictated by: CHA HERRERA 07/27/2007 15:40 Electronically signed by: CHA HERRERA 07/27/2007 15:50 Admit Date: 07/27/2007 JOSEANGELA Sex: F Admitting MD: JIMI LEW Birthdate: 1985 rotor blade installer:JIMI LEW CMRN:[id number] Room: [facility]: [address] [place] [address] Procedure Note Cha Herrera MD - 07/27/[address] [address] Imaging Services Procedure Completion Date Ordering Provider AccessionNumber NM Myocardial 07/27/2007 JIMI LEW [id number] Scan Spect 10:01:00 AM Multiple [P] Reason for Exam: v17.41 family history cad Interpretation Date of Procedure: 07/27/2007 Procedure Type: 1 Day Exercise Stress Myocardial Perfusion Study Clinical Indication: 21-year-old female with chest pain andpalpitations. She has a strongly positive family history of coronary disease withher mother having a heart attack in her 20s. Other risk factors forcoronary artery disease includes smoking. Exercise Stress Procedure: The patient exercised for 7 minutes and 50 seconds on a Bruceprotocol, achieving an estimated workload of 10 METS. The resting heart ratewas 94 bpm, and increased to 176 bpm at peak exercise, which was 89 % ofthe predicted maximum heart rate. Nuclear Imaging Protocol: Myocardial perfusion imaging was performed at rest approximately 60minutes following the intravenous injection of 10.4 mCi TC99m Myoview. Atpeak exercise, the patient was injected intravenously with 40.4 cVhVB89w Myoview and exercise was continued for 2 minutes. Gated post-stress tomographic imaging was performed approximately 30 minutes later insame manner. SPECT reconstruction was performed in the short, verticallong and horizontal long axis views in both rest and stress image sets. Findings: There is normal perfusion to all myocardial segments during bothstress and rest imaging. There is no ischemia. Gated SPECT examination revealsnormal left ventricular cavity size. There is normal left ventricular wallmotion. LVEF 73 %. Admit Date: 07/27/2007 ANGELA DOSHI Sex: F Admitting MD: JIMI LEW Birthdate: 1985 rotor blade installer:JIMI LEW CMRN:[id number] Room: [facility]: [id number] [address] Imaging Services Procedure Completion Date Ordering Provider AccessionNumber NM Myocardial 07/27/2007 JIMI LEW [id number] Scan Spect 10:01:00 AM Multiple [P] Impression: 1. Normal myocardial perfusion study. No ischemia. 2. Normal gated SPECT examination. Normal left ventricular wallmotion. LVEF 73 %. 3. Good exercise capacity. 4. Results of exercise treadmill stress test reported separately. . Dictated by: CHA HERRERA 07/27/2007 15:40 Electronically signed by: CHA HERRERA 07/27/2007 15:50 Admit Date: 07/27/2007 JOSEANGELA BOSS Sex: F Admitting MD: JIMI LEW Birthdate: 1985 rotor blade installer:JIMI LEW CMRN:[id number] Room: [facility]: [phone] us Jimi Lew MD NM ORDERABLES Final Re sult INTERFACE SYSTEM Refer to clinic/hospital department documented in this encounter Visit Diagnoses Not on filedocumented in this encounter Care Teams Consultant Luxury And Auto. Vice President [employer] (Ex ) Relationship Specialty Start Date End Date Jameel Gorman MD PCP - General 11/23/08 documented as of this encounter
--- OUTSIDE RECORDS SUMMARY | 2024-07-19 12:46 | XMS_ITS | Encounter Summary ---
Author Organization [facility] Address [address] [place] [address] Care Team Providers Care Buying Agent Name Role Phone Jameel Gorman MD Primary Care Provider [phone] Encounter Details Date Type Department Care Team (Late st Contact Info) Description 07/01/2007 Outpatient Historical [facility] [place] [address] [place] [address] Justus Landaverde MD 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
--- OUTSIDE RECORDS SUMMARY | 2024-07-19 12:46 | XMS_ITS | Encounter Summary ---
Author Organization [facility] Address [address] [place] [address] Care Team Providers Care Silo Man Name Role Phone Jameel Gorman MD Primary Care Provider [phone] Encounter Details Date Type Department Care Team (Late st Contact Info) Description 06/30/2007 Outpatient Historical [facility] Medicine [place] [address] [place] [address] [address] [place] [address] Gurpreet Lew MD [address] [place] [address] Social History Tobacco Use Types Packs/Day Years Used Date Smoking Tobacco: Never Assessed Comments Unknown Sex and Gender Information Value Date Recorded Sex Assigned at Not on file Legal Sex Female 3:43 AM REPORTS ANALYST Gender Identity Not on file Sexual Orientation Not on file documented as of this encounter Last Filed Vital Signs Vital Sign Reading Time Taken Comments Blood Pressure 150/78 06/30/2007 9:30 AM REPORTS ANALYST Pulse 90 06/30/2007 9:30 AM REPORTS ANALYST Temperature 36.1 C (97 F) 06/30/2007 9:30 AM REPORTS ANALYST Respiratory Rate 16 06/30/2007 9:30 AM REPORTS ANALYST Oxygen Saturation - - Inhaled Oxygen Concentration - - Weight 84.4 kg (186 lb) 06/30/2007 9:30 AM REPORTS ANALYST Height - - Body Mass Index - - documented in this encounter Plan of Treatment Not on file documented as of this encounter Visit Diagnoses Not on filedocumented in this encounter Care Teams Silo Man Relationship Specialty Start Date End Date Jameel Gorman MD PCP - General 11/23/08 documented as of this encounter
--- OUTSIDE RECORDS SUMMARY | 2024-07-19 12:46 | XMS_ITS | Encounter Summary ---
Author Organization [facility] Address [address] [place] [address] Care Team Providers Care Commercial Lines Insurance Agent Name Role Phone Jameel Gorman MD Primary Care Provider [phone] Encounter Details Date Type Department Care Team (Late st Contact Info) Description 10/04/2007 Outpatient Historical [facility] Medicine [place] [address] [place] [address] Gurpreet Lew MD [address] [place] [address] Social History Tobacco Use Types Packs/Day Years Used Date Smoking Tobacco: Never Assessed Comments Unknown Sex and Gender Information Value Date Recorded Sex Assigned at Not on file 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
--- OUTSIDE RECORDS SUMMARY | 2024-07-19 12:46 | XMS_ITS | Encounter Summary ---
Author Organization [facility] Address [address] [place] [address] Care Team Providers Care Ice Delivery Driver Name Role Phone Jameel Gorman MD Primary Care Provider [phone] Encounter Details Date Type Department Care Team (Late st Contact Info) Description 10/04/2007 Outpatient Historical [facility] Medicine [place] [address] [place] [address] Gurpreet Lew MD [address] [place] [address] Social History Tobacco Use Types Packs/Day Years Used Date Smoking Tobacco: Never Assessed Comments Unknown Sex and Gender Information Value Date Recorded Sex Assigned at Not on file 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
--- OUTSIDE RECORDS SUMMARY | 2024-07-19 12:46 | XMS_ITS | Clinical Summary ---
Author Organization [facility] Medical Office [facility] Address [address] [place] [address] Care Team Providers Care Director Consumer Name Role Phone Jameel Gorman MD Primary Care Provider [phone] Allergies Active Allergy Reactions Criticality Noted Date Comments No Known Allergies 06/30/2007 Medications citalopram (CeleXA) 10 mg tabletIndication s:RE (generalized anxiety disorder) Take 3 Tablets (30 mg) by mouth daily. 90 Tablet 5 01/22/2018 Active ALPRAZolam (XANAX) 0.5 mg tabletIndication s:Generalized anxiety disorder Take 1 tablet by ORAL route 2 times every day as needed. 60 Tablet 1 02/26/2018 Active citalopram (CeleXA) 20 mg tablet TAKE ONE TABLET BY MOUTH AT BEDTIME. 90 Tablet 07/02/2018 Active LEVOTHYROXINE 100 mcg tabletIndication s:Hypothyroidism , unspecified type TAKE 1 TABLET(100 MCG) BY MOUTH DAILY 90 Tablet 10/21/2019 Active Active Problems Problem Noted Date Diagnosed Date Major depressive disorder, recurrent episode, un specified 04/07/2012 Breast pain in female 05/29/2011 Essential hypertension, benign 04/21/2011 Obsessive-compulsive personality disorder 2010 Allergic rhinitis, cause unspecified 09/25/2010 Threatened , antepartum 08/21/2010 Primary hypothyroidism 03/19/2010 Anxiety state, unspecified 11/16/2009 Supervision of normal first 06/06/2009 OCD (obsessive compulsive disorder) 12/21/2008 Generalized anxiety disorder 12/21/2008 Dysmenorrhea 10/04/2007 Tobacco use disorder 06/30/2007 Abnormal glandular Papanicolaou smear of cervix 06/30/2007 Resolved Problems Problem Noted Date Diagnosed Date Resolved Date Abdominal pain, right lower quadrant 10/04/2007 01/11/2008 Acute sinusitis, unspecified 07/22/2007 01/11/2008 Headache(784.0) 07/22/2007 01/11/2008 Nausea alone 07/22/2007 01/11/2008 Other abnormal blood chemistry 07/02/2007 01/11/2008 Palpitations 06/30/2007 01/11/2008 Elevated blood pressure read ing without diagnosis of hypertension 06/30/2007 01/11/2008 Family history of sudden cardiac (SCD) 8 01/11/2008 Obesity, unspecified 06/30/2007 008 Immunizations Immunization Administration Dates Next Due (ADACEL/BOOSTRIX)(10 YR UP) TDAP VACCINE, 0.5ML, IM 11/14/2008 (M-M-R II/PRIORIX)(12 MO UP) MEASLES, MUMPS AND RUBELLA VIRUS VACCINE, 0.5 ML IM/SUBCUT 07/25/2009 Influenza A (H1N1) Vaccine PF IM 04/12/2009 Influenza Seasonal Unspecified Formulation IM Influenza Vaccine Split 3+ Yrs IM 03/05/2015 Skin Test TB 01/11/2008 Family History Medical History Relation Name Comments Other Father 31 Heart Disease Maternal Grandfather 5 0 y/o DVT Healthy Maternal Grandmother Osteoporosis Maternal Grandmother Diabetes Mother 29 Heart Disease Mother 29 Age 29 DVT Thyroid Disease Mother 29 Heart Disease Other MAunt CABG x3 Other Other MAunt DVT's/DVT's Other Paternal Grandmother kidney failure Healthy Sister 1 Thyroid Disease Sister 2 Relation Name Status Comments Father 31 Maternal Grandfather Maternal Grandmother Alive Mother 29 Other MAunt Alive Paternal Grandfather Paternal Grandmother Sister 1 Alive Sister 2 Social History Tobacco Use Types Packs/Day Years Used Date Smoking Tobacco: Every Day Cigarettes 1.5 10 Smokeless Tobacco: Never Tobacco Cessation:Counseling Given: No Comments:Was smoking 2ppd Alcohol Use Standard Drinks/Week Comments No 0 (1 standard drink = 0.6 oz pur e alcohol) Comments No Sex and Gender Information Value Date Recorded Sex Assigned at Not on file Legal Sex Female 3:43 AM [employer]ONT GOLD ATTENDANT Gender Identity Not on file Sexual Orientation Not on file Last Filed Vital Signs Vital Sign Reading Time Taken Comments Blood Pressure 106/68 01/22/2018 10:40 AM CDT Pulse 84 01/22/2018 10:40 AM CDT Temperature 37.1 C (98.8 F) 07/18/2016 12:15 PM [employer] GOLD ATTENDANT Respiratory Rate 16 02/06/2017 11:24 AM CDT Oxygen Saturation 99% 08/23/2010 1:07 PM CDT Inhaled Oxygen Concentration - - Weight 66.7 kg (147 lb) 01/22/2018 10:40 AM CDT Height 152.4 cm (5') 01/22/2018 10:40 AM CDT Body Mass Index 28.71 01/22/2018 10:40 AM CDT Plan of Treatment Health Maintenance Due Date Last Done Comments HEPATITIS B VACCINES (1 of 3 - 19+ 3-dose series) 09/29/2002 CERVICAL CANCER SCREENING 09/29/20132010, 09/05/2009, 09/05/2009, Additional history exists DTAP/TDAP/TD VACCINES (2 - Td or Tdap) 11/14/2018 11/14/2008 BREAST CANCER SCREENING 2023 INFLUENZA VACCINE (#1) 2024 03/05/2015, 2011 HPV VACCINES Aged Out No longer eligi ble based on patient's age to complete this topic Procedures Procedure Name Priority Date/Time Associated Diagnosis Comments CERV/VAG CYTOPATH, THIN PREP IMAGR RFLX HPV Routine 08/15/2010 5:00 PM [employer] GOLD ATTENDANT from Last 3 Months or Most Recently Relevant to Health Maintenance Results * (ABNORMAL) CERV/VAG CYTOPATH, THIN PREP IMAGR RFLX HPV (08/15/2010 5:00 PM [employer] GOLD ATTENDANT) REPORT STATUS FINAL [facility] CLINICAL INFORMATION [facility] Comment: LAST MENSTRUAL PERIOD [facility] Comment:06 15 2010 PREV PAP: [facility] Comment:WNL PREV BX: [facility] Comment:Information not prov ided SOURCE [facility] Comment:Endocervix ADEQUACY: [facility] Comment: Satisfactory for evaluation. Endocervical/transformation zone component present. GENERAL CATEGORIZATION: (A) [facility] Comment:EPITHELIAL CELL ABNO RMALITY INTERPRETATION (A) [facility] Comment: Atypical Squamous Cells of Undetermined Significance (ASC-US) COMMENT [facility] Comment: This Pap test has been evaluated with computer assisted technology. As requested, sample is submitted for High Risk HPV DNA testing. Suggest clinical correlation and follow-up as clinically appropriate HIDE MEASURING MACHINE OPERATOR: [facility] Comment:MVW, CT(ASCP) PATHOLOGIST [facility] Comment: Cooper Montenegro M.D., Board Certified in Anatomic Pathology and Cytopathology. (electronic signature) Test Performed at: [facility] [address] [place] [id number] BERTRAND KYLE DO 08/15/2010 5:00 PM [employer] GOLD ATTENDANT us Justus Landaverde MD PATHOLOGY/CYTOLOGY ORDERABLES Final Result INTERFACE SYSTEM Refer to clinic/hospital department [facility] [address] [place] [address] from Last 3 Months or Most Recently Relevant to Health Maintenance Advance Directives For more information, please contact: [phone] * Full Code (Latest Code Status on File) Date Activated Date Inactivated Comments 08/23/2010 10:36 AM 08/24/2010 2:31 AM * Full Code Date Activated Date Inactivated Comments 07/23/2009 9:45 PM 07/26/2009 12:59 PM * Full Code Date Activated Date Inactivated Comments 07/23/2009 9:13 PM 07/23/2009 9:45 PM * Full Code Date Activated Date Inactivated Comments 07/23/2009 9:07 AM 07/23/2009 9:13 PM * Full Code Date Activated Date Inactivated Comments 05/14/2009 7:35 PM 05/15/2009 12:25 AM Care Teams Director Consumer Relationship Specialty Start Date End Date Jameel Gorman MD PCP - General 11/23/08
--- OUTSIDE RECORDS SUMMARY | 2024-07-19 12:46 | XMS_ITS | Clinical Summary ---
Author Organization [facility] [employer] Address [address] [address] Care Team Providers Care Product Safety Manager Name Role Phone Jameel Gorman MD Primary Care Provider [phone] Source Comments [facility],non-owned Affiliates and Associated Physician Practices is amultiple site organization consisting of ambulatory clinics and hospital sitesin [place], [place], [place] and [place]. This disclosure is being madepursuant to the Care Everywhere program and may not contain all information available regarding this patient. Last updated 18.[facility] [employer] Social History Tobacco Use Types Packs/Day Years Used Date Smoking Tobacco: Never Assessed Sex and Gender Information Value Date Recorded Sex Assigned at Not on file Gender Identity Not on file Sexual Orientation Not on file Plan of Treatment Health Maintenance Due Date Last Done Comments LIPID TESTING 1985 MAMMOGRAM 1985 PAP SMEAR 1985 HIV SCREENING 09/29/1998 HEPATITIS C SCREENING 09/25/2001 DTAP/TDAP/TD VACCINES (1 - Tdap) 09/29/2002 HEPATITIS B VACCINE (1 of 3 - 19+ 3-dose series) 09/29/2002 COVID-19 VACCINE ( - 2023-2 5 season) 2024 INFLUENZA VACCINE (#1) 2024 DEPRESSION SCREENING 06/08/2024 ZOSTER VACCINE (1 of 2) 09/29/2033 HIB VACCINE Aged Out No longer eligi ble based on patient's age to complete this topic HPV VACCINE Aged Out No longer eligi ble based on patient's age to complete this topic MENINGOCOCCAL (Group B) VACCINE Aged Out No longer eligible based on patient's age to complete this topic MENINGOCOCCAL VACCINE Aged Out No lorne jovi eligible based on patient's age to complete this topic PNEUMOCOCCAL VACCINE Aged Out No long er eligible based on patient's age to complete this topic Care Teams Product Safety Manager Relationship Specialty Start Date End Date Jameel Gorman MD [address] [place] [id number] PCP - General 10/17/09
--- OUTSIDE RECORDS SUMMARY | 2024-07-19 12:46 | XMS_ITS ---
Author Organization [employer] Address [address] [place] [address] Care Team Providers Care Cosmetics And Toiletries Salesperson Name Role Phone Unavailable Primary Care Physician Unavailab le Medications Name Start Date Expiration Date SIG Comments Mirena 21 mcg/24 hours (8 yrs) 52 mg intrauterine device 08/03/2023 08/04/2023 place 1 device by intrauterine route once Payers Insurance Name Company Name Plan Name Plan Number Policy Num priscilla Policy Group Number Start Date [facility] [id number] N/A History of Encounters Visit Date Visit Type Provider 08/03/2023 My-IUD Tele-Med Consult Dr. Toño Hanna MD
--- OUTSIDE RECORDS SUMMARY | 2024-07-19 12:46 | XMS_ITS | Encounter Summary ---
Author Organization [facility] Address [address] [place] [address] Care Team Providers Care Real Estate Closing Coordinator Name Role Phone Jameel Gorman MD Primary Care Provider [phone] Encounter Details Date Type Department Care Team (Late st Contact Info) Description 07/22/2007 Outpatient Historical [facility] Medicine [place] [address] [place] [address] Marge Ryan MD [address] [place] [address] Social History Tobacco Use Types Packs/Day Years Used Date Smoking Tobacco: Never Assessed Comments Unknown Sex and Gender Information Value Date Recorded Sex Assigned at Not on file Legal Sex Female 3:43 AM OLEOMARGARINE MAKER Gender Identity Not on file Sexual Orientation Not on file documented as of this encounter Plan of Treatment Not on file documented as of this encounter Visit Diagnoses Not on filedocumented in this encounter Care Teams Real Estate Closing Coordinator Relationship Specialty Start Date End Date Jameel Gorman MD PCP - General 11/23/08 documented as of this encounter
--- OUTSIDE RECORDS SUMMARY | 2024-07-19 12:46 | XMS_ITS | Encounter Summary ---
Author Organization [facility] Address [address] [place] [address] Care Team Providers Care Arson And Bomb Investigator Name Role Phone Jameel Gorman MD Primary Care Provider [phone] Encounter Details Date Type Department Care Team (Late st Contact Info) Description 03/30/2007 Outpatient Historical [facility] [place] [address] [place] [address] Justus Landaverde MD [address] [place], [place] [id number] Social History Tobacco Use Types Packs/Day Years Used Date Smoking Tobacco: Never Assessed Comments Unknown Sex and Gender Information Value Date Recorded Sex Assigned at Not on file Legal Sex Female 3:43 AM ECHO TECHNOLOGIST Gender Identity Not on file Sexual Orientation Not on file documented as of this encounter Plan of Treatment Not on file documented as of this encounter Visit Diagnoses Not on filedocumented in this encounter Care Teams Arson And Bomb Investigator Relationship Specialty Start Date End Date Jameel Gorman MD PCP - General 11/23/08 documented as of this encounter
--- OUTSIDE RECORDS SUMMARY | 2024-07-19 12:47 | XMS_ITS | Encounter Summary ---
Author Organization [facility] Address [address] [place] [address] Care Team Providers Care Senior Software Systems Engineer Name Role Phone Jameel Gorman MD Primary Care Provider [phone] Encounter Details Date Type Department Care Team (Late st Contact Info) Description 01/11/2008 Outpatient Historical [facility] Jimi Lew MD [address] [place] [address] Unspecified Backache Social History Tobacco Use Types Packs/Day Years Used Date Smoking Tobacco: Every Day Cigarettes 2 10 Comments No Sex and Gender Information Value Date Recorded Sex Assigned at Not on file Legal Sex Female 3:43 AM OPERATIONS TECH Gender Identity Not on file Sexual Orientation Not on file documented as of this encounter Plan of Treatment Not on file documented as of this encounter Procedures Procedure Name Priority Date/Time Associated Diagnosis Comments XR THORACIC SPINE 3 VW Timed Study 01/11/2008 11:00 AM CDT documented in this encounter Results * XR THORACIC SPINE 3 VW (01/11/2008 11:00 AM CDT) Anatomical Region Laterality Modality Spine Other 01/11/2008 11:0 0 AM CDT Narrative 01/11/2008 12:44 PM CDT [address] [address] Admit Date: 01/11/2008 ANGELA DOSHI Sex: F Admit Prov: JIMI LEW Date: 1985 Primary Care Prov: JIIM LEW CMRN: [id number] Room: [facility]: [id number] IMAGING SERVICES Ordering Prov: N/A Accession Number: [id number] Interpretation THORACIC SPINE 3 VIEWS 01/11/2008 History: Back pain. Findings: No fracture is seen. Significant areas of disc space narrowing are not identified. Summary: No definite abnormality. Further imaging such as MRI may be helpful if further evaluation is necessary. . Dictated by: MELISSA LU 01/11/2008 11:02 Electronically signed by: MELISSA LU 01/11/2008 12:42 Transcribed: 01/11/2008 12:37 SJ Procedure Note Melissa Lu DO - 01/11/[address] [address] Admit Date: 01/11/2008 ANGELA DOSHI Sex: F Admit Prov: JIMI LEW Date: 1985 Primary Care Prov: JIMI LEW CMRN: [id number] [facility] [id number] IMAGING SERVICES Ordering Prov: N/A Interpretation THORACIC SPINE 3 VIEWS 01/11/2008 History: Back pain. Findings: No fracture is seen. Significant areas of disc spacenarrowing are not identified. Summary: No definite abnormality. Further imaging such as MRI may be helpfulif further evaluation is necessary. . Dictated by: MELISSA LU 01/11/2008 11:02 Electronically signed by: MELISSA LU 01/11/2008 12:42 Transcribed: 01/11/2008 12:37 [facility] us Jimi Lew MD DIAGNOSTIC IMAGING ORDER MAEGAN Final Result documented in this encounter Visit Diagnoses Diagnosis Backache, unspecified documented in this encounter Care Teams Senior Software Systems Engineer Relationship Specialty Start Date End Date Jameel Gorman MD PCP - General 11/23/08 documented as of this encounter
--- OUTSIDE RECORDS SUMMARY | 2024-07-19 12:47 | XMS_ITS | Patient Health Summary ---
Author Organization [facility] Address [address] [facility] [facility] [place] [address] Care Team Providers Care Interior Decorator Name Role Phone Jameel Gorman MD Primary Care Provider [phone] Note from [facility],non-owned Affiliates and Associated Physician Practices is amultiple site organization consisting of ambulatory clinics and hospital sitesin [place], [place], [place] and [place]. This disclosure is being madepursuant to the Care Everywhere program and may not contain all information available regarding this patient. Last updated 18.[facility] Social History Tobacco Use Types Packs/Day Years Used Date Smoking Tobacco: Never Assessed Sex and Gender Information Value Date Recorded Sex Assigned at Not on file Gender Identity Not on file Sexual Orientation Not on file Care Teams Interior Decorator Relationship Specialty Start Date End Date Jameel Gorman MD [address] [place] [id number] PCP - General 10/17/09
[2024-07-19 19:31] LABS: Hematocrit 40.5 % (37.0-47.0); Hemoglobin 13.2 g/dL (12.0-15.0); Mean Corpuscular HGB Conc 32.6 g/dl (32-36); Mean Corpuscular Hemoglobin 31.5 pg (26-34); Mean Corpuscular Volume 96.7 fl (80-100); Mean Platelet Volume 10.5 fl (7.4-10.4); Platelet Count Result 311 k/mm3 (150-375); Red Blood Count 4.19 M/mm3 (4.2-5.4); Red Cell Distribution Width 12.3 % (11.5-14.5); White Blood Count 7.2 K/mm3 (4.5-10.0)
[2024-07-19 20:33] LABS: Alanine Aminotransferase 15 U/L (6-35); Alkaline Phosphatase 50 U/L (38-126); Anion Gap 7 mmol/L (4-12); Aspartate Amino Transferase 40 U/L (14-36); Bilirubin,Total 0.5 mg/dL (0.2-1.3); Blood Urea Nitrogen 7 mg/dL (7-17); Calcium 8.8 mg/dL (8.4-10.2); Carbon Dioxide 29 mmol/L (22-30); Chloride 104 mmol/L (98-107); Cholesterol 166 mg/dL (0-200); Estimated Glomerular Filt Rate > 60; Glucose 86 mg/dL (65-110); HDL Direct 42 mg/dL; Potassium 4.3 mmol/L (3.4-5.0); Sodium 140 mmol/L (137-145); Triglycerides 57 mg/dL (<150)
[2024-07-19 20:44] LABS: LDL Cholesterol Direct 102 mg/dL
== END 2024-07-19 11:28 | disposition home or self-care (01) ==
LOC: ANHBWCLAB 11:28
PROVIDERS: PCP Nurse Practitioner Adult Health; Visit Provider Nurse Practitioner Adult Health
DX: Z13.9 Encounter for screening, unspecified (principal)
CPT/HCPCS: 36415; 80053; 80061; 84443; 85027

== ENCOUNTER 2024-10-04 00:47 | Day surgery (SDC) | payer OTHER, SELFPAY ==
[2024-09-21 12:50] VITALS: BMI 29.0
--- OUTSIDE RECORDS SUMMARY | 2024-10-04 00:49 | XMS_ITS | Clinical Summary ---
Author Organization [facility] Address [address] [place] [address] Care Team Providers Care Movable Bulkhead Installer Name Role Phone Jameel Gorman MD Primary Care Provider [phone] Allergies Active Allergy Reactions Criticality Noted Date [...] on file Legal Sex Female 3:43 AM SALES REPRESENTATIVE ADDING MACHINES Gender Identity Not on file Sexual Orientation Not on file Last Filed Vital Signs Vital Sign Reading Time Taken Comments Blood Pressure 106/68 01/22/2018 10:40 AM CDT Pulse 84 01/22/2018 10:40 AM CDT Temperature 37.1 C (98.8 F) 07/18/2016 12:15 PM SALES REPRESENTATIVE ADDING MACHINES Respiratory Rate 16 02/06/2017 11:24 AM CDT [...] of 3 - 19+ 3-dose series) 09/29/2002 PAP SMEAR 09/29/2013 08/15/2010, 08/08, 09/05/2009, Additional history exists CERVICAL CANCER SCREENING 08/16/2015 HPV/Cotest (21-29) 08/16/2015 08/15/2010, 0 08/15/2010, 11/23/2008, Additional history exists HPV/Cotest (30-65) 08/16/2015 08/15/2010, 0 08/15/2010, 11/23/2008, Additional history exists DTAP/TDAP/TD VACCINES (2 - Td or Tdap) 11/14/2018 11/14/2008 BREAST CANCER SCREENING 2023 INFLUENZA VACCINE (#1) 2024 03/05/2015, 2011 HPV VACCINES Aged Out No longer eligi ble based on patient's age to complete this topic Procedures Procedure Name Priority Date/Time Associated Diagnosis Comments HPV HIGH RISK DNA DETECTION Routine 08/15/2010 5:00 PM SALES REPRESENTATIVE ADDING MACHINES CERV/VAG CYTOPATH, THIN PREP IMAGR RFLX HPV Routine 08/15/2010 5:00 PM SALES REPRESENTATIVE ADDING MACHINES from Last 3 Months or Most Recently Relevant to Health Maintenance Results * (ABNORMAL) CERV/VAG CYTOPATH, THIN PREP IMAGR RFLX HPV (08/15/2010 5:00 PM SALES REPRESENTATIVE ADDING MACHINES) REPORT STATUS FINAL [facility] CLINICAL INFORMATION [facility] Comment: LAST MENSTRUAL PERIOD [facility] [employer] [facility] Comment:06 15 2010 PREV PAP: [facility] Comment:WNL PREV BX: [facility] Comment:Information not prov ided SOURCE [facility] [employer] [facility] Comment:[employer] ADEQUACY: [facility] Comment: Satisfactory for evaluation. Endocervical/transformation zone component present. GENERAL CATEGORIZATION: (A) [facility] Comment:EPITHELIAL CELL ABNO RMALITY INTERPRETATION (A) [facility] Comment: Atypical Squamous Cells of Undetermined Significance (ASC-US) COMMENT [facility] Comment: This Pap test has been evaluated with computer assisted technology. As requested, sample is submitted for High Risk HPV DNA testing. Suggest clinical correlation and follow-up as clinically appropriate BOILER ASSISTANT OPERATOR: QU [employer] [facility] Comment:TUAN CORDOVA(ASCP) PATHOLOGIST [facility] Comment: Cooper Montenegro M.D., Board Certified in Anatomic Pathology and Cytopathology. (electronic signature) Test Performed at: [facility] [address] [place] [address] BERTRAND KYLE DO 08/15/2010 5:00 PM SALES REPRESENTATIVE ADDING MACHINES Justus Landaverde MD PATHOLOGY/CYTOLOGY ORDERABLES Final Result INTERFACE SYSTEM Refer to clinic/hospital department [facility] [address] [place] [address] * HPV HIGH RISK DNA DETECTION (08/15/2010 5:00 PM SALES REPRESENTATIVE ADDING MACHINES) HPV HIGH RISK DNA DETECTION NOT DETECTED [facility] Comment: Reference range: Not Detected Tested for high risk types 16,18,31,33,35,39,45,51,52, 56,58,59,68. The analytical performance characteristics of this assay, when used to test SurePath or vaginal specimens, have been determined by [employer]. Methodology: Hybrid Capture with Signal Amplification. Test Performed at: [facility] [address] [place] [address] BERTRAND KYLE DO 08/15/2010 5:00 PM SALES REPRESENTATIVE ADDING MACHINES 08/26/2010 10:13 AM CDT us Justus Landaverde MD PATHOLOGY/CYTOLOGY ORDERABLES Final Result INTERFACE SYSTEM Refer to clinic/hospital department [facility] [address] [place] [phone] from Last 3 Months or Most Recently Relevant to Health Maintenance Advance Directives For more information, please contact: [phone] * Full Code (Latest Code Status on [...] 7:35 PM 05/15/2009 12:25 AM Care Teams Movable Bulkhead Installer Relationship Specialty Start Date End Date Jameel Gorman MD PCP - General 11/23/08
--- OUTSIDE RECORDS SUMMARY | 2024-10-04 00:49 | XMS_ITS | Encounter Summary ---
Author Organization [facility] Address [address] [place] [address] Care Team Providers Care Fashion Supervisor Name Role Phone Jameel Gorman MD Primary Care Provider [phone] Encounter Details Date Type Department Care Team (Late st Contact Info) Description 07/22/2007 Outpatient Historical [facility] Medicine [place] [address] [place] [address] Elsi Mehta, TUFTER [address] [place] [address] Social History Tobacco Use Types Packs/Day Years Used Date Smoking Tobacco: Never Assessed Comments Unknown Sex and Gender Information Value Date Recorded Sex Assigned at Not on file Legal Sex Female 3:43 AM RECRUITING MANAGER Gender Identity Not on file Sexual Orientation Not on file documented as of this encounter Plan of Treatment Not on file documented as of this encounter Visit Diagnoses Not on filedocumented in this encounter Care Teams Fashion Supervisor Relationship Specialty Start Date End Date Jameel Gorman MD PCP - General 11/23/08 documented as of this encounter
--- OUTSIDE RECORDS SUMMARY | 2024-10-04 00:49 | XMS_ITS | Encounter Summary ---
Author Organization [facility] Address [address] [place] [address] Care Team Providers Care Product Picker Name Role Phone Jameel Gorman MD Primary Care Provider Encounter Details Date Type Department Care Team (Late st Contact Info) Description 07/22/2007 Outpatient Historical [facility] Medicine [place] [address] [place] [address] Marge Ryan MD [address] [place] [address] Social History Tobacco Use Types Packs/Day Years Used Date Smoking Tobacco: Never Assessed Comments Unknown Sex and Gender Information Value Date Recorded Sex Assigned at Not on file Legal Sex Female 3:43 AM CHANNEL CEMENTER INSOLE MACHINE Gender Identity Not on file Sexual Orientation Not on file documented as of this encounter Plan of Treatment Not on file documented as of this encounter Visit Diagnoses Not on filedocumented in this encounter Care Teams Product Picker Relationship Specialty Start Date End Date Jameel Gorman MD PCP - General 11/23/08 documented as of this encounter
--- OUTSIDE RECORDS SUMMARY | 2024-10-04 00:49 | XMS_ITS | Encounter Summary ---
Author Organization [facility] Address [address] [place] [address] Care Team Providers Care Server Software Engineer Name Role Phone Jameel Gorman MD Primary Care Provider [phone] Encounter Details Date Type Department Care Team (Late st Contact Info) Description 07/22/2007 Outpatient Historical [facility] Medicine [place] [address] [place] [address] Marge Ryan MD [address] [place] [address] Social History Tobacco Use Types Packs/Day Years Used Date Smoking Tobacco: Never Assessed Comments Unknown Sex and Gender Information Value Date Recorded Sex Assigned at Not on file Legal Sex Female 3:43 AM HARDWOOD FLOORING SPECIALIST Gender Identity Not on file Sexual Orientation Not on file documented as of this encounter Plan of Treatment Not on file documented as of this encounter Visit Diagnoses Not on filedocumented in this encounter Care Teams Server Software Engineer Relationship Specialty Start Date End Date Jameel Gorman MD PCP - General 11/23/08 documented as of this encounter
--- OUTSIDE RECORDS SUMMARY | 2024-10-04 00:49 | XMS_ITS | Encounter Summary ---
Author Organization [facility] Address [address] [place] [address] Care Team Providers Care Director Career Services Name Role Phone Jameel Gorman MD Primary Care Provider [phone] Encounter Details Date Type Department Care Team (Late st Contact Info) Description 07/22/[address] [facility] Medicine [place] [address] [place] [address] Marge Ryan MD [address] [place] [address] Social History Tobacco Use Types Packs/Day Years Used Date Smoking Tobacco: Never Assessed Comments Unknown Sex and Gender Information Value Date Recorded Sex Assigned at Not on file Legal Sex Female 3:43 AM ROTARY CUTTER FEEDER Gender Identity Not on file Sexual Orientation Not on file documented as of this encounter Plan of Treatment Not on file documented as of this encounter Visit Diagnoses Not on filedocumented in this encounter Care Teams Director Career Services Relationship Specialty Start Date End Date Jameel Gorman MD PCP - General 11/23/08 documented as of this encounter
--- OUTSIDE RECORDS SUMMARY | 2024-10-04 00:50 | XMS_ITS | Encounter Summary ---
Author Organization [employer] Address [address] [place] [address] Care Team Providers Care Toolroom Keeper Name Role Phone Jameel Gorman MD Primary Care Provider [phone] Encounter Details Date Type Department Care Team (Latest Contact Info) Description 02/09/2000 Outpatient Historical [facility] Mook Rodgers MD [address] [place] [address] Sprain of ankle, unspecified site (Primary Dx) Social History Tobacco Use Types Packs/Day Years Used Date Smoking Tobacco: Never Assessed Comments Unknown Sex and Gender Information Value Date Recorded Sex Assigned at Not on file Legal Sex Female 3:43 AM CONSULAR OFFICER Gender Identity Not on file Sexual Orientation Not on file documented as of this encounter Plan of Treatment Not on file documented as of this encounter Visit Diagnoses Diagnosis Sprain of ankle, unspecified site- Primary documented in this encounter Care Teams Toolroom Keeper Relationship Specialty Start Date End Date Jameel Gorman MD PCP - General 11/23/08 documented as of this encounter
--- OUTSIDE RECORDS SUMMARY | 2024-10-04 00:50 | XMS_ITS | Encounter Summary ---
Author Organization [facility] Address [address] [place] [address] Care Team Providers Care Sole Molding Machine Operator Name Role Phone Jameel Gorman MD Primary Care Provider [phone] Encounter Details Date Type Department Care Team (Late st Contact Info) Description 09/01/2007 Orders Only [facility] [address] [place] [address] Gurpreet Lew MD [address] [place] [address] Social History Tobacco Use Types Packs/Day Years Used Date Smoking Tobacco: Never Assessed Comments Unknown Sex and Gender Information Value Date Recorded Sex Assigned at Not on file Legal Sex Female 3:43 AM LINE FISHER Gender Identity Not on file Sexual Orientation [...] smoked for 5 to 10 years. 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 ALCOHOL: The patient drinks alcohol 5 to [...] NEW PRESCRIPTION, 09/01/2007. LAB ORDERS: Order number: [id number] Test Ordered: SMOKING CESSATION, 3-10 MIN 71861 461.9-SINUSITIS UNSPECIFIED ASSESSMENT: The patient's acute sinusitis [...] on filedocumented in this encounter Care Teams Sole Molding Machine Operator Relationship Specialty Start Date End Date Jameel Gorman MD PCP - General 11/23/08 documented as of this encounter
--- OUTSIDE RECORDS SUMMARY | 2024-10-04 00:50 | XMS_ITS | Encounter Summary ---
Author Organization [facility] Address [address] [place] [address] Care Team Providers Care Office Services Manager Name Role Phone Jameel Gorman MD Primary Care Provider [phone] Encounter Details Date Type Department Care Team (Late st Contact Info) Description 07/01/2007 Outpatient Historical [facility] [place] [address] [place] [address] Justus Landaverde MD 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
--- OUTSIDE RECORDS SUMMARY | 2024-10-04 00:50 | XMS_ITS | Encounter Summary ---
Author Organization [employer] Address 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
--- OUTSIDE RECORDS SUMMARY | 2024-10-04 00:50 | XMS_ITS | Encounter Summary ---
Author Organization [facility] Address [address] [place] [address] Care Team Providers Care Group Contract Analyst Name Role Phone Jameel Gorman MD Primary Care Provider [phone] Encounter Details Date Type Department Care Team (Late st Contact Info) Description 09/01/2007 Outpatient Historical [facility] Medicine [place] [address] [place] [address] Gurpreet Lew MD [address] [place] [address] Social History Tobacco Use Types Packs/Day Years Used Date Smoking Tobacco: Never Assessed Comments Unknown Sex and Gender Information Value Date Recorded Sex Assigned at Not on file Legal Sex Female 3:43 AM SOIL CONSERVATIONIST Gender Identity Not on file Sexual Orientation Not on file documented as of this encounter Plan of Treatment Not on file documented as of this encounter Visit Diagnoses Not on filedocumented in this encounter Care Teams Group Contract Analyst Relationship Specialty Start Date End Date Jameel Gorman MD PCP - General 11/23/08 documented as of this encounter
--- OUTSIDE RECORDS SUMMARY | 2024-10-04 00:50 | XMS_ITS | Encounter Summary ---
Author Organization [facility] Address [address] [place] [address] Care Team Providers Care Finishing Operator Name Role Phone Jameel Gorman MD Primary Care Provider [phone] Encounter Details Date Type Department Care Team (Late st Contact Info) Description 10/04/2007 Outpatient Historical [facility] Medicine [place] [address] [place] [address] Gurpreet Lew MD [address] [place] [address] Social History Tobacco Use Types Packs/Day Years Used Date Smoking Tobacco: Never Assessed Comments Unknown Sex and Gender Information Value Date Recorded Sex Assigned at Not on file Legal Sex Female 3:43 AM SPECIFICATION MANAGER Gender Identity Not on file Sexual Orientation Not on file documented as of this encounter Plan of Treatment Not on file documented as of this encounter Visit Diagnoses Not on filedocumented in this encounter Care Teams Finishing Operator Relationship Specialty Start Date End Date Jameel Gorman MD PCP - General 11/23/08 documented as of this encounter
--- OUTSIDE RECORDS SUMMARY | 2024-10-04 00:50 | XMS_ITS | Clinical Summary ---
Author Organization [facility] [employer] Address [address] [place] [address] Care Team Providers Care Assistant Controller Name Role Phone Jameel Gorman MD Primary Care Provider [phone] Source Comments [facility],non-owned Affiliates and Associated Physician Practices is amultiple site organization consisting of ambulatory clinics and hospital sitesin [place], [place], [place] and [place]. This disclosure is being madepursuant to the Care Everywhere program and may not contain all information available regarding this patient. Last updated 18.[facility] [employer] Social History Tobacco Use Types Packs/Day Years Used Date Smoking Tobacco: Never Assessed Comments Unknown Sex and Gender Information Value Date Recorded Sex Assigned at Not on file Legal Sex Female 8:51 AM DRAFTING LAYOUT WORKER Gender Identity Not on file Sexual Orientation Not on file Plan of Treatment Health Maintenance Due Date Last Done Comments LIPID TESTING 1983 MAMMOGRAM 1983 HIV SCREENING 09/29/1998 HEPATITIS C SCREENING 09/25/2001 DTAP/TDAP/TD VACCINES (1 - Tdap) 09/29/2002 HEPATITIS B VACCINE (1 of 3 - 19+ 3-dose series) 09/29/2002 COVID-19 VACCINE ( - 2023-2 5 season) 2024 DEPRESSION SCREENING 06/08/2024 INFLUENZA VACCINE (Season Ended) 2025 ZOSTER VACCINE (1 of 2) 09/29/2033 HIB VACCINE Aged Out No longer eligi ble based on patient's age to complete this topic HPV VACCINE Aged Out No longer eligi ble based on patient's age to complete this topic MENINGOCOCCAL (Group B) VACC INE SHARED DECISION-MAKING Aged Out No longer eligibl e based on patient's age to complete this topic MENINGOCOCCAL GROUPS A/C/Y/W VACCINE Aged Out No longer eligible b ased on patient's age to complete this topic PNEUMOCOCCAL VACCINE Aged Out No long er eligible based on patient's age to complete this topic Care Teams Assistant Controller Relationship Specialty Start Date End Date Jameel Gorman MD [address] [place] [id number] PCP - General 10/17/09
--- OUTSIDE RECORDS SUMMARY | 2024-10-04 00:50 | XMS_ITS | Encounter Summary ---
Author Organization [employer] Address [address] [place] [address] Care Team Providers Care Downstream Biomanufacturing Technician Name Role Phone Jameel Gorman MD Primary Care Provider [phone] Encounter Details Date Type Department Care Team (Late st Contact Info) Description 10/19/2007 Outpatient Historical [facility] Gurpreet Lew MD [address] [place] [address] Other, [facility] NO ADDRESS ON FILE Abdominal Pain, Right Lower Quadrant Social History Tobacco Use Types Packs/Day Years Used Date Smoking Tobacco: Never Assessed Comments Unknown Sex and Gender Information Value Date Recorded Sex Assigned at Not on file Legal Sex Female 3:43 AM FOOTWEAR STITCHER Gender Identity Not on file Sexual Orientation Not on file documented as of this encounter Plan of Treatment Not on file documented as of this encounter Visit Diagnoses Diagnosis Abdominal pain, right lower quadrant documented in this encounter Care Teams Downstream Biomanufacturing Technician Relationship Specialty Start Date End Date Jameel Gorman MD PCP - General 11/23/08 documented as of this encounter
--- OUTSIDE RECORDS SUMMARY | 2024-10-04 00:50 | XMS_ITS | Encounter Summary ---
Author Organization [facility] Address [address] [place] [address] Care Team Providers Care Registered Dental Hygienist Name Role Phone Jameel Gorman MD Primary Care Provider [phone] Encounter Details Date Type Department Care Team (Late st Contact Info) Description 06/30/2007 Outpatient Historical [facility] [place] [address] [place] [address] Gurpreet Lew MD [address] [place] [address] Palpitations Social History Tobacco Use Types Packs/Day Years Used Date Smoking Tobacco: Never Assessed Comments Unknown Sex and Gender Information Value Date Recorded Sex Assigned at Not on file Legal Sex Female 3:43 AM PRIVATE BRANCH EXCHANGE REPAIRER Gender Identity Not on file Sexual Orientation Not on file documented as of this encounter Plan of Treatment Not on file documented as of this encounter Procedures Procedure Name Priority Date/Time Associated Diagnosis Comments CBC WITH DIFFERENTIAL Routine 06/30/2007 10:33 AM PRIVATE BRANCH EXCHANGE REPAIRER CBC WITH DIFFERENTIAL Routine 06/30/2007 10:33 AM PRIVATE BRANCH EXCHANGE REPAIRER TSH Routine 06/30/2007 10:33 AM PRIVATE BRANCH EXCHANGE REPAIRER MAGNESIUM LEVEL Routine 06/30/2007 10:33 AM PRIVATE BRANCH EXCHANGE REPAIRER LIPID PANEL Routine 06/30/2007 10:33 AM PRIVATE BRANCH EXCHANGE REPAIRER COMPREHENSIVE METABOLIC PANEL Routine 06/30/2007 10:33 AM PRIVATE BRANCH EXCHANGE REPAIRER documented in this encounter Results * CBC WITH DIFFERENTIAL (06/30/2007 10:33 AM PRIVATE BRANCH EXCHANGE REPAIRER) NEUTROPHILS 62 45 - 70 % INTERFAC [...] K/uL INTERFACE SYSTEM 06/30/2007 10:3 3 AM PRIVATE BRANCH EXCHANGE REPAIRER us Gurpreet Lew MD HEMATOLOGY ORDERABLES Ed ited INTERFACE SYSTEM Refer to clinic/hospital department * (ABNORMAL) CBC WITH DIFFERENTIAL (06/30/2007 10:33 AM PRIVATE BRANCH EXCHANGE REPAIRER) Pathologist [facility] WBC 7.9 4.0 - 9.8 K/uL INTERFACE [...] fL INTERFACE SYSTEM 06/30/2007 10:3 3 AM PRIVATE BRANCH EXCHANGE REPAIRER Gurpreet Lew MD HEMATOLOGY ORDERABLES Ed ited INTERFACE SYSTEM Refer to clinic/hospital department * TSH (06/30/2007 10:33 AM PRIVATE BRANCH EXCHANGE REPAIRER) TSH 1.98 0.27 - 4.20 uU/mL INTERFACE SYSTEM 06/30/2007 10:3 3 AM PRIVATE BRANCH EXCHANGE REPAIRER Gurpreet Lew MD CHEMISTRY ORDERABLES Mynor mason Performing Organization Address [facility] Co de Phone Number INTERFACE SYSTEM Refer to clinic/hospital department * MAGNESIUM LEVEL (06/30/2007 10:33 AM PRIVATE BRANCH EXCHANGE REPAIRER) MAGNESIUM 2.1 1.5 - 2.5 mg/dL INTERFACE SYSTEM 06/30/2007 10:3 3 AM PRIVATE BRANCH EXCHANGE REPAIRER Gurpreet Lew MD CHEMISTRY ORDERABLES Mynor mason Performing Organization Address [facility] Co de Phone Number INTERFACE SYSTEM Refer to clinic/hospital department * (ABNORMAL) COMPREHENSIVE METABOLIC PANEL (06/30/2007 10:33 AM PRIVATE BRANCH EXCHANGE REPAIRER) GLUCOSE 88 65 - 99 mg/dL INTERFACE [...] and non- Americans is available on the [facility] Intranet at: [email or web address] Select: Lab Policies and Procedures Select: Reference Ranges - GFR 06/30/2007 10:3 3 AM PRIVATE BRANCH EXCHANGE REPAIRER Gurpreet Lew MD CHEMISTRY ORDERABLES Mynor mason Performing Organization Address [facility] Phone Number INTERFACE SYSTEM Refer to clinic/hospital department * (ABNORMAL) LIPID PANEL (06/30/2007 10:33 AM PRIVATE BRANCH EXCHANGE REPAIRER) CHOLESTEROL 164 100 - 199 mg/dL INTERFACE SYSTEM TRIGLYCERIDE 51 10 - 149 mg/dL INTERFACE SYSTEM HDL 36(L) 40 - 59 mg/dL INTERFACE SYSTEM LDL CALCULATED 118(H) <=99 mg/dL INTERFACE SYSTEM CHOL/HDL RATIO 4.6 2.0 - 5.0 INTER FACE SYSTEM LIPID PANEL COMMENT See Below INTERFACE SYSTEM Comment: The adult ATP and pediatric NCEP classifications for lipids are available on the [facility] Intranet at: [email or web address] Select: Lab Policies and Procedures,Current Select: Lipid Panel Interpretation 06/30/2007 10:3 3 AM PRIVATE BRANCH EXCHANGE REPAIRER Gurpreet Lew MD CHEMISTRY ORDERABLES Mynor mason Performing Organization Address [facility] Co de Phone Number INTERFACE SYSTEM Refer to clinic/hospital department documented in this encounter Visit Diagnoses Diagnosis Palpitations documented in this encounter Care Teams Registered Dental Hygienist Relationship Specialty Start Date End Date Jameel Gorman MD PCP - General 11/23/08 documented as of this encounter
--- OUTSIDE RECORDS SUMMARY | 2024-10-04 00:50 | XMS_ITS | Encounter Summary ---
Author Organization [facility] Address [address] [place] [address] Care Team Providers Care Traveling Passenger Agent Name Role Phone Jameel Gorman MD Primary Care Provider [phone] Encounter Details Date Type Department Care Team (Late st Contact Info) Description 03/30/2007 Outpatient Historical [facility] [place] [address] [place] [id number] Justus Landaverde MD 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
--- OUTSIDE RECORDS SUMMARY | 2024-10-04 00:50 | XMS_ITS | Encounter Summary ---
Author Organization [facility] Address [address] [place] [address] Care Team Providers Care Final Expense Agent Name Role Phone Jameel Gorman MD Primary Care Provider [phone] Encounter Details Date Type Department Care Team (Late st Contact Info) Description 07/27/2007 Outpatient Historical [facility] Jimi Lew MD [address] [place] [address] Social History Tobacco Use Types Packs/Day Years Used Date Smoking Tobacco: Never Assessed Comments Unknown Sex and Gender Information Value Date Recorded Sex Assigned at Not on file Legal Sex Female 3:43 AM MACHINE FUR CLEANER Gender Identity Not on file Sexual Orientation Not on file documented as of this encounter Plan of Treatment Not on file documented as of this encounter Procedures Procedure Name Priority Date/Time Associated Diagnosis Comments NM MYOCARD PERF IMAG SPECT MULT Routine 07/27/2007 7:27 AM MACHINE FUR CLEANER documented in this encounter Results * NM MYOCARD PERF IMAG SPECT MULT (07/27/2007 7:27 AM MACHINE FUR CLEANER) 07/27/2007 7:27 AM MACHINE FUR CLEANER Narrative INTERFACE SYSTEM - 07/27/2007 3:50 PM MACHINE FUR CLEANER [address] [address] Imaging Services Procedure Completion Date Ordering Provider Accession Number NM Myocardial 07/27/2007 JIMI LEW [id number] Scan Spect 10:01:00 AM Multiple [P] Reason [...] F Admitting MD: JIMI LEW Birthdate: 1985 meat supervisor:JIMI LEW CMRN:[id number] Room: [facility]: [id number] [address] Imaging Services Procedure Completion Date Ordering Provider Accession Number NM Myocardial 07/27/2007 JIMI LEW [id number] Scan Spect 10:01:00 AM Multiple [P] Impression: [...] F Admitting MD: JIMI LEW Birthdate: 1985 meat supervisor:JIMI LEW CMRN:[id number] Room: [facility]: [address] [place] [address] Procedure Note Cha Herrera MD - 07/27/[address] [address] Imaging Services Procedure Completion Date Ordering Provider AccessionNumber NM Myocardial 07/27/2007 JIMI LEW [id number] Scan Spect 10:01:00 AM Multiple [P] Reason [...] the patient was injected intravenously with 40.4 [id number] Myoview and exercise was continued for 2 [...] F Admitting MD: JIMI LEW Birthdate: 1985 meat supervisor:JIMI LEW CMRN:[id number] Room: [facility]: [id number] [address] Imaging Services Procedure Completion Date Ordering Provider AccessionNumber NM Myocardial 07/27/2007 JIMI LEW [id number] Scan Spect 10:01:00 AM Multiple [P] Impression: 1. Normal myocardial perfusion study. No ischemia. 2. Normal gated SPECT examination. Normal left ventricular wallmotion. LVEF 73 %. 3. Good exercise capacity. 4. Results of exercise treadmill stress test reported separately. . Dictated by: CHA HERRERA 07/27/2007 15:40 Electronically signed by: CAH HERRERA 07/27/2007 15:50 Admit Date: 07/27/2007 JOSEANGELA BOSS Sex: F Admitting MD: JIMI LEW Birthdate: 1985 meat supervisor:JIMI LEW CMRN:[id number] Room: [facility]: [id number] us Jimi Lew MD NM ORDERABLES Final Re sult INTERFACE SYSTEM Refer to clinic/hospital department documented in this encounter Visit Diagnoses Not on filedocumented in this encounter Care Teams Final Expense Agent Relationship Specialty Start Date End Date Jameel Gorman MD PCP - General 11/23/08 documented as of this encounter
--- OUTSIDE RECORDS SUMMARY | 2024-10-04 00:50 | XMS_ITS | Encounter Summary ---
Author Organization [employer] Address [address] [place] [address] Care Team Providers Care Pediatrician Active Practice Name Role Phone Jameel Gorman MD Primary Care Provider [phone] Encounter Details Date Type Department Care Team (Late st Contact Info) Description 07/27/2007 Outpatient Historical [facility] [address] [place] [address] Gustavo Herrera MD [address] [place] [address] Social History Tobacco Use Types Packs/Day Years Used Date Smoking Tobacco: Never Assessed Comments Unknown Sex and Gender Information Value Date Recorded Sex Assigned at Not on file Legal Sex Female 3:43 AM LATEX FOAM WORKER Gender Identity Not on file Sexual Orientation Not on file documented as of this encounter Plan of Treatment Not on file documented as of this encounter Visit Diagnoses Not on filedocumented in this encounter Care Teams Pediatrician Active Practice Relationship Specialty Start Date End Date Jameel Gorman MD PCP - General 11/23/08 documented as of this encounter
--- OUTSIDE RECORDS SUMMARY | 2024-10-04 00:50 | XMS_ITS | Encounter Summary ---
Author Organization [employer] Address [address] [place] [address] Care Team Providers Care Furniture Manager Name Role Phone Jameel Gorman MD Primary Care Provider [phone] Encounter Details Date Type Department Care Team (Latest Contact Info) Description 03/25/2006 Outpatient Historical [facility] Ashley Blevins MD [address] [place] [address] Emergency Dept [place], [place] [phone] Neck Sprain and Strain (Primary Dx) Social History Tobacco Use Types Packs/Day Years Used Date Smoking Tobacco: Never Assessed Comments Unknown Sex and Gender Information Value Date Recorded Sex Assigned at Not on file Legal Sex Female 3:43 AM INFORMATION TECHNOLOGY MANAGER Gender Identity Not on file Sexual Orientation Not on file documented as of this encounter Plan of Treatment Not on file documented as of this encounter Visit Diagnoses Diagnosis Sprain of neck- Primary documented in this encounter Care Teams Furniture Manager Relationship Specialty Start Date End Date Jameel Gorman MD PCP - General 11/23/08 documented as of this encounter
--- OUTSIDE RECORDS SUMMARY | 2024-10-04 00:50 | XMS_ITS | Encounter Summary ---
Author Organization [facility] Address [address] [place] [address] Care Team Providers Care Orthotics Prosthetics Technician Name Role Phone Jameel Gorman MD Primary Care Provider [phone] Encounter Details Date Type Department Care Team (Late st Contact Info) Description 01/11/2008 Outpatient Historical [facility] Jimi Lew MD [address] [place] [address] Unspecified Backache Social History Tobacco Use Types Packs/Day Years Used Date Smoking Tobacco: Every Day Cigarettes 2 10 Comments No Sex and Gender Information Value Date Recorded Sex Assigned at Not on file Legal Sex Female 3:43 AM BIOINFORMATICS SOFTWARE ENGINEER Gender Identity Not on file Sexual [...] AM CDT Narrative 01/11/2008 12:44 PM CDT [address] [address] Admit Date: 01/11/2008 ANGELA DOSHI Sex: F Admit Prov: JIMI LEW Date: 1985 Primary Care Prov: JIMI LEW CMRN: [id number] Room: [facility] [place]: [phone] IMAGING SERVICES Ordering Prov: N/A Accession Number: [id number] Interpretation THORACIC SPINE 3 VIEWS 01/11/2008 History: [...] Procedure Note Melissa Lu DO - 01/11/[address] [address] Admit Date: 01/11/2008 ANGELA DOSHI Sex: F Admit Prov: JIMI LEW Date: 1985 Primary Care Prov: JIMI LEW CMRN: [id number] [id number] Ordering Prov: N/A Interpretation THORACIC [...] unspecified documented in this encounter Care Teams Orthotics Prosthetics Technician Relationship Specialty Start Date End Date Jameel Gorman MD PCP - General 11/23/08 documented as of this encounter
--- OUTSIDE RECORDS SUMMARY | 2024-10-04 00:50 | XMS_ITS | Encounter Summary ---
Author Organization [facility] Address [address] [place] [address] Care Team Providers Care Police Communications Operator Name Role Phone Jameel Gorman MD Primary Care Provider [phone] Encounter Details Date Type Department Care Team (Late st Contact Info) Description 06/30/2007 Outpatient Historical [facility] Medicine [place] [address] [place] [address] [address] [place] [address] Gurpreet Lew MD [address] [place] [address] Social History Tobacco Use Types Packs/Day Years Used Date Smoking Tobacco: Never Assessed Comments Unknown Sex and Gender Information Value Date Recorded Sex Assigned at Not on file Legal Sex Female 3:43 AM CAKE WRAPPER Gender Identity Not on file Sexual Orientation Not on file documented as of this encounter Last Filed Vital Signs Vital Sign Reading Time Taken Comments Blood Pressure 150/78 06/30/2007 9:30 AM CAKE WRAPPER Pulse 90 06/30/2007 9:30 AM CAKE WRAPPER Temperature 36.1 C (97 F) 06/30/2007 9:30 AM CAKE WRAPPER Respiratory Rate 16 06/30/2007 9:30 AM CAKE WRAPPER Oxygen Saturation - - Inhaled Oxygen Concentration - - Weight 84.4 kg (186 lb) 06/30/2007 9:30 AM CAKE WRAPPER Height - - Body Mass Index - - documented in this encounter Plan of Treatment Not on file documented as of this encounter Visit Diagnoses Not on filedocumented in this encounter Care Teams Police Communications Operator Relationship Specialty Start Date End Date Jameel Gorman MD PCP - General 11/23/08 documented as of this encounter
--- OUTSIDE RECORDS SUMMARY | 2024-10-04 00:50 | XMS_ITS | Encounter Summary ---
Author Organization [employer] Address [address] [place] [address] Care Team Providers Care Felt Tipping Machine Tender Name Role Phone Jameel Gorman MD Primary Care Provider [phone] Encounter Details Date Type Department Care Team (Late st Contact Info) Description 02/14/2002 Outpatient Historical [facility] Jameel Gorman MD [address] [place] [address] [place] [address] ABDOMINAL PAIN UNSPEC SITE (Primary Dx) Social History Tobacco Use Types Packs/Day Years Used Date Smoking Tobacco: Never Assessed Comments Unknown Sex and Gender Information Value Date Recorded Sex Assigned at Not on file Legal Sex Female 3:43 AM 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
--- OUTSIDE RECORDS SUMMARY | 2024-10-04 00:50 | XMS_ITS | Encounter Summary ---
Author Organization [employer] Address [address] [place] [address] Care Team Providers Care Cork Pressing Machine Operator Name Role Phone Jameel Gorman MD Primary Care Provider Encounter Details Date Type Department Care Team (Latest Contact Info) Description 11/17/2007 Outpatient Historical [facility] Justus Landaverde MD 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 Gender Identity Not on file Sexual Orientation [...] CORE IGM (11/17/2007 10:46 AM CDT) Pathologist [facility] HEPATITIS B CORE IGM NON-REACT PARVEZ NON-REACT PARVEZ [facility] Comment: Lab test performed by: [email or web address] [address] BERTRAND MCINTYRE MD Blood specimen (specimen) 11/17/2007 10:46 AM CDT 11/17/2007 10:47 AM CDT Justus Landaverde MD CHEMISTRY ORDERABLES Final Res ult Performing Organization Address [facility] de Phone Number [facility] CLIA# [id number] [address] [place] [address] * HEPATITIS C ANTIBODY (11/17/2007 10:46 AM CDT) Pathologist [facility] HEPATITIS C AB NON-REACT PARVEZ NON-REACT PARVEZ [facility] SIGNAL TO CUT OFF 0.09 <1.00 [facility] Comment: Lab test performed by: [email or web address] [address] BERTRAND MCINTYRE MD Blood specimen (specimen) 11/17/2007 10:46 AM CDT 11/17/2007 10:47 AM CDT Justus Landaverde MD CHEMISTRY ORDERABLES Final Res ult Performing Organization Address [facility] Co de Phone Number [facility] CLIA# [id number] [address] [place] [address] * HEPATITIS A IGM (11/17/2007 10:46 AM CDT) Pathologist [facility] HEPATITIS A IGM NON-REACT PARVEZ NON-REACT PARVEZ [facility] Comment: Lab test performed by: [email or web address] [address] BERTRAND MCINTYRE MD Blood specimen (specimen) 11/17/2007 10:46 AM CDT 11/17/2007 10:47 AM CDT us Justus Landaverde MD CHEMISTRY ORDERABLES Final Res ult Performing Organization Address [facility] Co de Phone Number [facility] CLIA# [id number] [address] [place] [address] * HEPATITIS B SURFACE ANTIGEN (11/17/2007 10:46 AM CDT) HEPATITIS B SURFACE AG NON-REACT PARVEZ NON-REACT PARVEZ [facility] Comment: Lab test performed by: [email or web address] [address] BERTRAND MCINTYRE MD Blood specimen (specimen) 11/17/2007 10:46 AM CDT 11/17/2007 10:47 AM CDT us Justus Landaverde MD CHEMISTRY ORDERABLES Final Res ult Performing Organization Address [facility] Co de Phone Number [facility] CLIA# [id number] [address] [place] [address] * RPR (11/17/2007 10:46 AM CDT) Pathologist [facility] RPR NON-REACTI VE NON-REACT PARVEZ [facility] Comment: Lab test performed by: [facility] [place] [facility] [address] [place] [address] BERTRAND MCINTYRE MD Blood specimen (specimen) 11/17/2007 10:46 AM CDT 11/17/2007 10:47 AM CDT us Justus Landaverde MD CHEMISTRY ORDERABLES Final Res ult Performing Organization Address [facility] Co de Phone Number [facility] CLIA# [id number] [address] [place] [address] * HIV ANTIBODY W/REFLX CONFIRMATION (11/17/2007 10:46 AM CDT) HIV-1 AND 2 ABS NON-REACT PARVEZ NON-REACT PARVEZ [facility] Comment: A NON-REACTIVE HIV 1/2 ANTIBODY RESULT DOES NOT EXCLUDE HIV INFECTION SINCE THE TIME FRAME FOR SEROCONVERSION IS VARIABLE. IF ACUTE HIV INFECTION IS SUSPECTED, ANTIBODY RETESTING AND NUCLEIC ACID AMPLIFICATION (HIV DNA/RNA) TESTING IS RECOMMENDED. Lab test performed by: [email or web address] [address] BERTRAND MCINTYRE MD Effective November 09, 2006, HIV 1/2 Antibody Screen with Reflexed Confirmation has replaced HIV-1 Antibody Screen. HIV-1 Antibody Screen is no longer offered due to lack of available kits from the [employer]. Blood specimen (specimen) 11/17/2007 10:46 AM CDT 11/17/2007 10:47 AM CDT us Justus Landaverde MD CHEMISTRY ORDERABLES Final Res ult [facility] CLIA# [id number] [address] [place] [address] documented in this encounter Visit Diagnoses Diagnosis Contact with or exposure to venereal diseases documented in this encounter Care Teams Cork Pressing Machine Operator Relationship Specialty Start Date End Date Jameel Gorman MD PCP - General 11/23/08 documented as of this encounter
--- OUTSIDE RECORDS SUMMARY | 2024-10-04 00:50 | XMS_ITS | Encounter Summary ---
Author Organization [facility] Address [address] [place] [address] Care Team Providers Care Binding Cementer French Cord Name Role Phone Jameel Gorman MD Primary Care Provider Encounter Details Date Type Department Care Team (Late st Contact Info) Description 09/01/2007 Outpatient Historical [facility] Medicine [place] [address] [place] [address] Gurpreet Lew MD [address] [place] [address] Social History Tobacco Use Types Packs/Day Years Used Date Smoking Tobacco: Never Assessed Comments Unknown Sex and Gender Information Value Date Recorded Sex Assigned at Not on file Legal Sex Female 3:43 AM DRY KILN BURNER Gender Identity Not on file Sexual Orientation Not on file documented as of this encounter Plan of Treatment Not on file documented as of this encounter Visit Diagnoses Not on filedocumented in this encounter Care Teams Binding Cementer French Cord Relationship Specialty Start Date End Date Jameel Gorman MD PCP - General 11/23/08 documented as of this encounter
--- OUTSIDE RECORDS SUMMARY | 2024-10-04 00:50 | XMS_ITS | Encounter Summary ---
Author Organization [facility] Address [address] [place] [address] Care Team Providers Care Drapery Maker Name Role Phone Jameel Gorman MD Primary Care Provider [phone] Encounter Details Date Type Department Care Team (Late st Contact Info) Description 10/04/2007 Outpatient Historical [facility] Medicine [place] [address] [place] [address] Gurpreet Lew MD [address] [place] [address] Social History Tobacco Use Types Packs/Day Years Used Date Smoking Tobacco: Never Assessed Comments Unknown Sex and Gender Information Value Date Recorded Sex Assigned at Not on file Legal Sex Female 3:43 AM SCRUB TECH Gender Identity Not on file Sexual Orientation Not on file documented as of this encounter Plan of Treatment Not on file documented as of this encounter Visit Diagnoses Not on filedocumented in this encounter Care Teams Drapery Maker Relationship Specialty Start Date End Date Jameel Gorman MD PCP - General 11/23/08 documented as of this encounter
--- OUTSIDE RECORDS SUMMARY | 2024-10-04 00:50 | XMS_ITS | Encounter Summary ---
Author Organization [facility] Address [address] [place] [address] Care Team Providers Care Ball Rolling Machine Operator Name Role Phone Jameel Gorman MD Primary Care Provider [phone] Encounter Details Date Type Department Care Team (Late st Contact Info) Description 05/10/2007 Outpatient Historical [facility] [place] [address] [place] [id number] Justus Landaverde MD 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
--- OUTSIDE RECORDS SUMMARY | 2024-10-04 00:50 | XMS_ITS ---
Author Organization [employer] Address [address] [facility] [address] [place] [address] Care Team Providers Care Math Specialist Name Role Phone Unavailable Primary Care Physician Unavailab le Medications Name Start Date Expiration Date SIG Comments Mirena 21 mcg/24 hours (8 yrs) 52 mg intrauterine device 08/03/2023 08/04/2023 place 1 device by intrauterine route once Payers Insurance Name Company Name Plan Name Plan Number Policy Num priscilla Policy Group Number Start Date [facility] [id number] N/A History of Encounters Visit Date Visit Type Provider 08/03/2023 My-IUD Tele-Med Consult Dr. Toño Hanna MD
--- OUTSIDE RECORDS SUMMARY | 2024-10-04 00:50 | XMS_ITS | Encounter Summary ---
Author Organization [facility] Address [address] [place] [address] Care Team Providers Care Academic Computing Director Name Role Phone Jameel Gorman MD Primary Care Provider [phone] Encounter Details Date Type Department Care Team (Late st Contact Info) Description 10/04/2007 Outpatient Historical [facility] Medicine [place] [address] [place] [address] Gurpreet Lew MD [address] [place] [address] Social History Tobacco Use Types Packs/Day Years Used Date Smoking Tobacco: Never Assessed Comments Unknown Sex and Gender Information Value Date Recorded Sex Assigned at Not on file 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
--- OUTSIDE RECORDS SUMMARY | 2024-10-04 00:50 | XMS_ITS | Encounter Summary ---
Author Organization [facility] Address [address] [place] [address] Care Team Providers Care Can Runner Name Role Phone Jameel Gorman MD Primary Care Provider [phone] Encounter Details Date Type Department Care Team (Late st Contact Info) Description 10/04/2007 Outpatient Historical [facility] Medicine [place] [address] [place] [address] Gurpreet Lew MD [address] [place] [address] Social History Tobacco Use Types Packs/Day Years Used Date Smoking Tobacco: Never Assessed Comments Unknown Sex and Gender Information Value Date Recorded Sex Assigned at Not on file Legal Sex Female 3:43 AM 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
--- OUTSIDE RECORDS SUMMARY | 2024-10-04 00:50 | XMS_ITS | Encounter Summary ---
Author Organization [facility] Address [address] [place] [address] Care Team Providers Care Screener And Blender Operator Name Role Phone Jameel Gorman MD Primary Care Provider [phone] Encounter Details Date Type Department Care Team (Late st Contact Info) Description 09/01/2007 Outpatient Historical [facility] Medicine [place] [address] [place] [address] Gurpreet Lew MD [address] [place] [address] Social History Tobacco Use Types Packs/Day Years Used Date Smoking Tobacco: Never Assessed Comments Unknown Sex and Gender Information Value Date Recorded Sex Assigned at Not on file Legal Sex Female 3:43 AM QUALITY ASSURANCE MONITOR CHASSIS Gender Identity Not on file Sexual Orientation Not on file documented as of this encounter Plan of Treatment Not on file documented as of this encounter Visit Diagnoses Not on filedocumented in this encounter Care Teams Screener And Blender Operator Relationship Specialty Start Date End Date Jameel Gorman MD PCP - General 11/23/08 documented as of this encounter
--- OUTSIDE RECORDS SUMMARY | 2024-10-04 00:50 | XMS_ITS | Encounter Summary ---
Author Organization [facility] Address [address] [place] [address] Care Team Providers Care Statistical Developer Name Role Phone Jameel Gorman MD Primary Care Provider [phone] Encounter Details Date Type Department Care Team (Late st Contact Info) Description 07/22/2007 Orders Only [facility] Medicine [place] [address] [facility] [address] [address] [place] [address] Elsi Mehta NP [address] [place] [address] Social History Tobacco Use Types Packs/Day Years Used Date Smoking Tobacco: Never Assessed Comments Unknown Sex and Gender Information Value Date Recorded Sex Assigned at Not on file Legal Sex Female 3:43 AM SINGE WINDER Gender Identity Not on file Sexual Orientation [...] nodularity. Kidneys not palpable. NEUROLOGIC: CRANIAL NERVES: panelboard operator II-XII grossly intact. OFFICE PROCEDURES: RAPID FLU: [...] NEW PRESCRIPTION, 07/22/2007. LAB ORDERS: Order number: [id number] Test Ordered: RAPID FLU [id number] PATIENT EDUCATION: Instructed on disease process and [...] laboratory. STATUS: Improved. LAB ORDERS: Order number: [id number] Test Ordered: URINALYSIS W/O MICRO [id number] PATIENT EDUCATION: Instructed on BRAT diet. Increase [...] on filedocumented in this encounter Care Teams Statistical Developer Relationship Specialty Start Date End Date Jameel Gorman MD PCP - General 11/23/08 documented as of this encounter
--- OUTSIDE RECORDS SUMMARY | 2024-10-04 00:50 | XMS_ITS | Encounter Summary ---
Author Organization [employer] Address [address] [place] [address] Care Team Providers Care Wood Cut Engraver Name Role Phone Jameel Gorman MD Primary Care Provider [phone] Encounter Details Date Type Department Care Team (Latest Contact Info) Description 05/20/2001 Outpatient Historical [facility] Justus Roldan FEVER (Primary Dx) Social History Tobacco Use Types Packs/Day Years Used Date Smoking Tobacco: Never Assessed Comments Unknown Sex and Gender Information Value Date Recorded Sex Assigned at Not on file Legal Sex Female 3:43 AM VIDEO EDITING INTERNSHIP Gender Identity Not on file Sexual Orientation Not on file documented as of this encounter Plan of Treatment Not on file documented as of this encounter Visit Diagnoses Diagnosis Fever and other physiologic disturbances of temperature regulation- Primary documented in this encounter Care Teams Wood Cut Engraver Relationship Specialty Start Date End Date Jameel Gorman MD PCP - General 11/23/08 documented as of this encounter
--- OUTSIDE RECORDS SUMMARY | 2024-10-04 00:50 | XMS_ITS | Encounter Summary ---
Author Organization [employer] Address [address] [place] [address] Care Team Providers Care Ramp Lead Name Role Phone Jameel Gorman MD Primary Care Provider [phone] Encounter Details Date Type Department Care Team (Late st Contact Info) Description 08/14/2007 Outpatient Historical [facility] Er, Authorized P NO ADDRESS ON FILE Mook Rodgers MD [address] [place] [address] Social History Tobacco Use Types Packs/Day Years Used Date Smoking Tobacco: Never Assessed Comments Unknown Sex and Gender Information Value Date Recorded Sex Assigned at Not on file Legal Sex Female 3:43 AM MANAGER DATA WAREHOUSING Gender Identity Not on file Sexual Orientation Not on file documented as of this encounter Plan of Treatment Not on file documented as of this encounter Procedures Procedure Name Priority Date/Time Associated Diagnosis Comments US PELVIS + TRANSVAG NON OB Stat 08/14/2007 11:00 AM MANAGER DATA WAREHOUSING CBC WITH DIFFERENTIAL Stat 08/14/2007 10:19 AM MANAGER DATA WAREHOUSING LIPASE Stat 08/14/2007 10:19 AM MANAGER DATA WAREHOUSING HEPATIC FUNCTION PANEL Stat 08/14/2007 10:19 AM MANAGER DATA WAREHOUSING BASIC METABOLIC PANEL Stat 08/14/2007 10:19 AM MANAGER DATA WAREHOUSING URINALYSIS WITH REFLEX CULTURE Stat 08/14/2007 10:10 AM MANAGER DATA WAREHOUSING URINALYSIS W/REFLEX MICROSCOPIC Stat 08/14/2007 10:10 AM MANAGER DATA WAREHOUSING HCG QUALITATIVE, URINE Stat 08/14/2007 10:10 AM MANAGER DATA WAREHOUSING documented in this encounter Results * US PELVIS + TRANSVAG NON OB (08/14/2007 11:00 AM MANAGER DATA WAREHOUSING) Anatomical Region Laterality Modality Pelvis Other 08/14/2007 11:0 0 AM MANAGER DATA WAREHOUSING Narrative 08/14/2007 11:58 AM MANAGER DATA WAREHOUSING [address] [address] Admit Date: 08/14/2007 JOSE ANGELA R Sex: F Admit Prov: ER, AUTHORIZED P Date: 1985 Primary Care Prov: JIMI MCGARRY CMRN: [id number] Room: [facility] SSN: [id number] IMAGING SERVICES Ordering Prov: N/A Accession Number: [id number] Interpretation TRANSABDOMINAL PELVIC ULTRASOUND, 08/14/2007 History: Left [...] MD Procedure Note Provider, Historical - 08/14/[address], [place] [address] Admit Date: 08/14/2007 ANGELA DOSHI Sex: F Admit Prov: YANCI NEWTON Date: 1985 Primary Care Prov: JIMI MGCARRY CMRN: [id number] Room: [facility]: [id number] IMAGING SERVICES Ordering Prov: N/A Interpretation TRANSABDOMINAL [...] (ABNORMAL) CBC WITH DIFFERENTIAL (08/14/2007 10:19 AM MANAGER DATA WAREHOUSING) RBC 4.72 3.90 - 4.90 M/uL [facility] MCHC 33.7 31.5 - 35.5 % [facility] MCV 89.2 82.0 - 99.0 fL [facility] PLATELETS 351(H) 140 - 350 K/uL [facility] HEMOGLOBIN 14.2 11.8 - 14.8 g/dL [facility] RDW 12.5 11.5 - 14.5 % [facility] WBC 8.7 4.0 - 9.8 K/uL [facility] MPV 10.3 9.3 - 12.4 fL [facility] MCH 30.1 27.2 - 32.6 pg [facility] HEMATOCRIT 42.1 35.5 - 44.0 % [facility] RDW-STDEV 39.7 37.1 - 48.7 fL [facility] LYMPHOCYTES 31 16 - 45 % [facility] LYMPHOCYTE ABSOLUTE 2.70 0.70 - 4.50 K/uL [facility] BASOPHILS 0 0 - 2 % [facility] BASOPHILS ABSOLUTE 0.02 0.00 - 0.20 K/uL [facility] MONOCYTES 5 3 - 13 % [facility] MONOCYTE ABSOLUTE 0.47 0.10 - 1.30 K/uL [facility] NEUTROPHILS 61 45 - 70 % [facility] NEUTROPHIL ABSOLUTE 5.36 1.90 - 7.00 K/uL [facility] EOSINOPHILS 2 0 - 7 % [facility] EOSINOPHIL ABSOLUTE 0.19 0.00 - 0.70 K/uL [facility] Blood specimen (specimen) 08/14/2007 10:19 AM MANAGER DATA WAREHOUSING 08/14/2007 10:20 AM MANAGER DATA WAREHOUSING us Mook Rodgers MD HEMATOLOGY ORDERABLES Edited [facility] [address] [place] [address] * (ABNORMAL) HEPATIC FUNCTION PANEL (08/14/2007 10:19 AM MANAGER DATA WAREHOUSING) BILIRUBIN TOTAL 0.3 0.2 - 1.0 mg/dL [facility] ALT 10 0 - 31 U/L [facility] AST 11(L) 12 - 32 U/L [facility] ALBUMIN 4.2 3.4 - 4.8 g/dL [facility] BILIRUBIN DIRECT <0.1 0.0 - 0.3 mg/dL [facility] TOTAL PROTEIN 7.4 6.0 - 8.3 g/dL [facility] ALKALINE PHOSPHATASE 62 35 - 104 U/L [facility] Blood specimen (specimen) 08/14/2007 10:19 AM MANAGER DATA WAREHOUSING 08/14/2007 10:20 AM MANAGER DATA WAREHOUSING Mook Rodgers MD CHEMISTRY ORDERABLES Final Res ult Performing Organization Address [facility] Co de Phone Number [facility] [address] [place] [address] * LIPASE (08/14/2007 10:19 AM MANAGER DATA WAREHOUSING) LIPASE 21 13 - 60 U/L [facility] Blood specimen (specimen) 08/14/2007 10:19 AM MANAGER DATA WAREHOUSING 08/14/2007 10:20 AM MANAGER DATA WAREHOUSING us Mook Rodgers MD CHEMISTRY ORDERABLES Final Res ult Performing Organization Address [facility] de Phone Number [facility] [address] [place] [address] * (ABNORMAL) BASIC METABOLIC PANEL (08/14/2007 10:19 AM MANAGER DATA WAREHOUSING) CO2 29 22 - 30 mmol/L [facility] CALCIUM 9.4 8.6 - 10.2 mg/dL [facility] POTASSIUM 3.9 3.5 - 4.9 mmol/L [facility] GLUCOSE 100(H) 65 - 99 mg/dL [facility] CHLORIDE 105 96 - 108 mmol/L [facility] BUN 8 6 - 20 mg/dL [facility] CREATININE 0.63 0.51 - 0.95 mg/dL [facility] SODIUM 141 135 - 145 mmol/L [facility] GFR, >60 >=60 mL/min/1. 7 sq meter [facility] GFR >60 >=60 mL/min/1. 7 sq meter [facility] Comment: Estimated GFR rate interpretative information for both Americans and non- Americans is available on the [facility] Intranet at: [email or web address] Select: Lab Policies and Procedures Select: Reference Ranges - GFR Blood specimen (specimen) 08/14/2007 10:19 AM MANAGER DATA WAREHOUSING 08/14/2007 10:20 AM MANAGER DATA WAREHOUSING Mook Rodgers MD CHEMISTRY ORDERABLES Edited Performing Organization Address City/[facility]/ZIP Co de Phone Number [facility] [address] [place] [address] * URINALYSIS (08/14/2007 10:10 AM MANAGER DATA WAREHOUSING) COLOR UA Yellow [facility] NITRITE UA Negative Negative [facility] BILIRUBIN UA Negative Negative [facility] PH UA 6.5 5.0 - 8.0 [facility] KETONES UA Negative Negative [facility] CLARITY UA Clear Clear [facility] BLOOD UA Negative Negative [facility] PROTEIN UA Negative Negative [facility] LEUKOCYTE ESTERASE UA Negative Negative [facility] UROBILINOGEN UA <1 <1 mg/dL [facility] SPECIFIC GRAVITY UA 1.015 1.001 - 1.035 [facility] GLUCOSE UA Negative Negative [facility] Urine, clean catch 08/14/2007 10:10 AM MANAGER DATA WAREHOUSING 08/14/2007 10:14 AM MANAGER DATA WAREHOUSING us Mook Rodgers MD URINE ORDERABLES Final Result Performing Organization Address [facility]/ZIP Co de Phone Number [facility] [address] [place] [address] * URINALYSIS WITH REFLEX CULTURE (08/14/2007 10:10 AM MANAGER DATA WAREHOUSING) URINE CULTURE ORDER Not Indicated [facility] Comment: Criteria for a reflex culture include one or more of the following: Abnormal WBCs, RBCs or bacteria. Lack of qualifying criteria does not exclude the possibility of a urinary tract infection. Dilute urine, drug interference, etc. may decrease the sensitivity of the criteria analytes. Urine, clean catch 08/14/2007 10:10 AM MANAGER DATA WAREHOUSING 08/14/2007 10:14 AM MANAGER DATA WAREHOUSING Mook Rodgers MD URINE ORDERABLES Final Result Performing Organization Address City/[facility]/ZIP Co de Phone Number [facility] [address] [place] [address] * BETA HCG QUALITATIVE, URINE (08/14/2007 10:10 AM MANAGER DATA WAREHOUSING) SPECIFIC GRAVITY UA 1.015 1.001 - 1.035 [facility] HCG QUAL URINE Negative Negative [facility] Urine specimen (specimen) 08/14/2007 10:10 AM MANAGER DATA WAREHOUSING 08/14/2007 10:14 AM MANAGER DATA WAREHOUSING Mook Rodgers MD URINE ORDERABLES Final Result Performing Organization Address City/[facility] Co de Phone Number [facility] [address] [place] [address] documented in this encounter Visit Diagnoses Not on filedocumented in this encounter Care Teams Ramp Lead Relationship Specialty Start Date End Date Jameel Gorman MD PCP - General 11/23/08 documented as of this encounter
--- OUTSIDE RECORDS SUMMARY | 2024-10-04 00:50 | XMS_ITS | Encounter Summary ---
Author Organization [facility] Address [address] [place] [address] Care Team Providers Care Print Binding Worker Name Role Phone Jameel Gorman MD Primary Care Provider [phone] Encounter Details Date Type Department Care Team (Late st Contact Info) Description 10/04/2007 Outpatient Historical [facility] Medicine [place] [address] [place] [address] [address] [place] [address] Gurpreet Lew MD [address] [place] [address] Dysmenorrhea Social History Tobacco Use Types Packs/Day Years Used Date Smoking Tobacco: Never Assessed Comments Unknown Sex and Gender Information Value Date Recorded Sex Assigned at Not on file Legal Sex Female 3:43 AM HAM SAWYER Gender Identity Not on file Sexual Orientation [...] QUANT, BLOOD 0.1 0.0 - 5.0 mIU/mL [facility] Comment: A result of 5-25 mIU/mL [...] Lew MD CHEMISTRY ORDERABLES Fin al Result [facility] [address] [place] [address] * PROLACTIN (10/04/2007 3:45 PM CDT) Pathologist [facility] PROLACTIN 9.45 4.79 - 23.30 ng/mL [facility] Comment: Female: Non- Reference Range 18 years - Adult = 4.79 - 23.30 ng/mL No Reference Range Established for patients less than 18 years of age. Blood specimen (specimen) 10/04/2007 3:45 PM CDT 10/04/2007 6:12 PM CDT Gurpreet Lew MD CHEMISTRY ORDERABLES Fin al Result Performing Organization Address [facility] Co de Phone Number [facility] [address] [place] [address] * GC AND CHLAMYDIA PROBE (10/04/2007 3:30 PM CDT) PRELIMINARY REPORT Pending [facility] FINAL REPORT No Neisseria gonorrhoeae detected. No Chlamydia trachomatis detected. [facility] Endocervical 10/04/2007 3:30 PM CDT 10/05/2007 9:36 AM CDT Narrative [facility] - 10/05/2007 12:15 PM CDT All [...] C OM Final Result Performing Organization Address [facility]/ZIP Co de Phone Number [facility] [address] [place] [address] documented in this encounter Visit Diagnoses Diagnosis Dysmenorrhea documented in this encounter Care Teams Print Binding Worker Relationship Specialty Start Date End Date Jameel Gorman MD PCP - General 11/23/08 documented as of this encounter
[2024-10-04 09:49] VITALS: BP 102/69; PULSE 93; RESP 20; TEMP 36.9; O2SAT 98; BMI 28.2
[2024-10-04] MEDS: LACTATED RINGERS 1,000 ML 150 ML IV CONT (10:02)
--- NOTE | 2024-10-04 10:05 | P.PNAN_ITS ---
Anes - Initial Pre Proc Eval Procedure: Operation Date: 10/04/24 11:00 Proposed Procedures p Esophagogastroduodenoscopy & Colonoscopy - Kingsley Mccauley MD s [facility] Hemorrhoid Treatment - Kingsley Mccauley MD Date/Time: 10/04/24 10:05 Surgeon: Kingsley Mccauley MD Pre Op Diagnosis: IBS,Nausea,melena,constipation,abd distension Patient Data Age: 39 Gender: F Height: 1.52 m Weight: 65.6 kg Last Vital Signs Temp 36.9 C 10/04/24 09:49 Pulse 93 10/04/24 09:49 Resp 20 10/04/24 09:49 BP 102/69 10/04/24 09:49 Pulse Ox 98 10/04/24 09:49 O2 Del Method Room Air 10/04/24 09:49 Allergies Allergy/AdvReac Type Severity Reaction Status Date / Time No Known Allergies Allergy Verified 10/04/24 09:48 Home Medications ?Medication ?Instructions ?Recorded ?Confirmed ?Type citalopram 20 mg tablet 20 mg PO DAILY #90 tabs 02/09/24 10/04/24 Rx alprazolam 0.5 mg tablet 0.5 mg PO DAILY PRN anxiety #30 07/12/24 09/22/24 Rx tabs levothyroxine 75 mcg tablet See Rx Instructions .Route 07/25/24 10/04/24 Rx .COMPLEX #90 tabs linaclotide 290 mcg capsule 290 mcg PO DAILY 09/22/24 10/04/24 History (Linzess) ondansetron 4 mg disintegrating 4 mg PO Q8H PRN nausea and vomiting 09/22/24 09/22/24 History tablet Patient hx anesthesia problems: none Family hx anesthesia problems: none Results Review: All pre-operative results and documents have been reviewed as part of the pre- operative evaluation. [facility] Past Medical History Medical History Disorder of thyroid IBS (irritable bowel syndrome) Migraine Anxiety Family History Family History Mother Diabetes mellitus Hypertension Heart disease Disorder of thyroid Sibling Disorder of thyroid Social History Social History Smoking packs per day: 1 Smoking cigarettes per day: 20.0 Years smoked: 10 Smoking pack-years: 10.00 Smoking status: Current every day smoker Tobacco type: cigarettes Alcohol intake: never Substance use: current Substance use type: marijuana Other substance usage details: on occasion Lack of Transportation: No Lack of Food: Never True Current Housing: I Have Housing Concerned About Future Housing: No Difficulty Paying Gas/Electric Bills: No Difficulty Paying for Meds: No Currently Unemployed: No Education: High School Diploma/GED Difficulty w/ Childcare or Family Care: No Living arrangements: with family 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 Informed Consent: The patient's anesthetic plan and its attendant risks and benefits were discussed with the patient/family/POA. Questions were solicited and answers provided to the satisfaction of the patient/family/POA.
--- NOTE | 2024-10-04 10:25 | PM.HPGS ---
History of Present Illness History of Present Illness Consent: Risks, benefits, and alternatives have been discussed and questions answered. Patient agrees to proceed with procedure. Chief complaint: IBS,Nausea,melena,constipation,abd distension Narrative: Lolis Doshi is a 39 year old female here for first egd and colonoscopy, h/o constipation (linzess 290 helping but causing diarrhea and can not leave the house), also nausea and bloating, she thinks that may have hemorrhoids as well. (discomfort in anus) Review of Systems Review of Systems: All systems reviewed & are unremarkable except as noted in HPI and below PMFSH Past Medical History Medical History Disorder of thyroid IBS (irritable bowel syndrome) Migraine Anxiety Family History Family History Mother Diabetes mellitus Hypertension Heart disease Disorder of thyroid Sibling Disorder of thyroid Social History Social History Smoking packs per day: 1 Smoking cigarettes per day: 20.0 Years smoked: 10 Smoking pack-years: 10.00 Smoking status: Current every day smoker Tobacco type: cigarettes Alcohol intake: never Substance use: current Substance use type: marijuana Other substance usage details: on occasion Lack of Transportation: No Lack of Food: Never True Current Housing: I Have Housing Concerned About Future Housing: No Difficulty Paying Gas/Electric Bills: No Difficulty Paying for Meds: No Currently Unemployed: No Education: High School Diploma/GED Difficulty w/ Childcare or Family Care: No Living arrangements: with family 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 Gender identity (if verbalized by the patient): Female Spiritual care concerns: No Agree to blood products: Yes Meds Home Medications and Allergies Home Medications ?Medication ?Instructions ?Recorded ?Confirmed ?Type citalopram 20 mg tablet 20 mg PO DAILY #90 tabs 02/09/24 10/04/24 Rx alprazolam 0.5 mg tablet 0.5 mg PO DAILY PRN anxiety #30 07/12/24 09/22/24 Rx tabs levothyroxine 75 mcg tablet See Rx Instructions .Route 07/25/24 10/04/24 Rx .COMPLEX #90 tabs linaclotide 290 mcg capsule 290 mcg PO DAILY 09/22/24 10/04/24 History (Linzess) ondansetron 4 mg disintegrating 4 mg PO Q8H PRN nausea and vomiting 09/22/24 09/22/24 History tablet Allergies Allergy/AdvReac Type Severity Reaction Status Date / Time No Known Allergies Allergy Verified 10/04/24 09:48 Vital Signs Vital Signs - 24 hr 10/04/24 09:49 Temperature 98.4 F Pulse Rate 93 Respiratory Rate 20 Blood Pressure 102/69 Pulse Oximetry 98 Oxygen Delivery Room Air Exam Const: General: comfortable and no acute distress HENMT: Face/Nose/Sinus: Normal nares present Eyes: General: appearance normal, both eyes and all related structures Neck: Neck: no JVD Resp: Auscultation: clear to auscultation bilaterally Cardio: Rate: regular rate Rhythm: regular rhythm GI: Inspection: non-distended GI Palp: Yes Soft to palpation Skin: General skin exam: normal color Neuro: General: gait normal Speech: normal speech Extrem: General: normal to inspection Psych: Mental Status: mental status grossly normal Assessment and Plan Assessment and plan (1) Bloating: Code(s): R14.0 - Abdominal distension (gaseous) Status: Acute (2) Nausea and vomiting: Qualifiers: Vomiting type: bilious vomiting Qualified Code(s): R11.14 - Bilious vomiting Code(s): R11.2 - Nausea with vomiting, unspecified Status: Acute Assessment and Plan: egd with bx (3) Chronic constipation: Code(s): K59.09 - Other constipation Status: Acute Assessment and Plan: colonoscopy will prescribe lower dose linzess (4) Blood in stool: Code(s): K92.1 - Melena Status: Acute Assessment and Plan: will assess if internal hemorrhoids and could do IRC
[2024-10-04 10:53] LABS: BEDSIDEPREGUCG Negative (Negative)
--- NOTE | 2024-10-04 10:53 | SUR.OPER ---
EGD START 1033, END 1036 COLONOSCOPY START 1040, END 1051
[2024-10-04 10:55] VITALS: BP 102/52; PULSE 79; RESP 21; O2SAT 96
[2024-10-04 11:05] VITALS: BP 100/74; PULSE 85; RESP 23; O2SAT 96
[2024-10-04 11:15] VITALS: BP 100/68; PULSE 80; RESP 20; O2SAT 96
== END 2024-10-04 11:23 | disposition home or self-care (01) ==
PROVIDERS: PCP Nurse Practitioner Adult Health; Referring Provider Nurse Practitioner Family; Visit Provider Internal Medicine Gastroenterology
DX: D12.4 Benign neoplasm of descending colon (principal); K64.8 Other hemorrhoids; K57.30 Diverticulosis of large intestine without perforation or abscess without bleeding; K21.9 Gastro-esophageal reflux disease without esophagitis; K58.9 Irritable bowel syndrome, unspecified; E07.9 Disorder of thyroid, unspecified; F41.9 Anxiety disorder, unspecified; F17.210 Nicotine dependence, cigarettes, uncomplicated; F12.90 Cannabis use, unspecified, uncomplicated; Z82.49 Family history of ischemic heart disease and other diseases of the circulatory system
CPT/HCPCS: 43239; 45385; 88305; J2003; J2704; J7120

== ENCOUNTER 2025-03-03 15:07 | Outpatient (CLI) | payer OTHER, SELFPAY ==
[2025-03-03 16:16] LABS: Beta HCG Quantitative < 2.39 mIU/ML
== END 2025-03-03 15:08 | disposition home or self-care (01) ==
LOC: ANHLAB 15:08
PROVIDERS: PCP Nurse Practitioner Adult Health; Visit Provider Nurse Practitioner Obstetrics & Gynecology
DX: Z32.01 Encounter for pregnancy test, result positive (principal)
CPT/HCPCS: 36415; 84702

== ENCOUNTER 2025-04-19 10:07 | Outpatient (CLI) | payer OTHER, SELFPAY ==
--- OUTSIDE RECORDS SUMMARY | 2025-04-19 11:15 | XMS_ITS | Clinical Summary ---
Author Organization [facility] Address [address] [place] [address] Care Team Providers Care Sanitation Supervisor Name Role Phone Jameel Gorman MD Primary Care Provider Allergies Active Allergy Reactions Criticality Noted Date [...] on file Legal Sex Female 3:43 AM LIFE SKILLS SPECIALIST Gender Identity Not on file Sexual Orientation Not on file Last Filed Vital Signs Vital Sign Reading Time Taken Comments Blood Pressure 106/68 01/22/2018 10:40 AM CDT Pulse 84 01/22/2018 10:40 AM CDT Temperature 37.1 C (98.8 F) 07/18/2016 12:15 PM LIFE SKILLS SPECIALIST Respiratory Rate 16 02/06/2017 11:24 AM CDT [...] of 3 - 19+ 3-dose series) 09/29/2002 HPV VACCINES (1 - 3-dose SCD M series) 09/29/2010 PAP SMEAR 09/29/2013 08/15/2010, 08/08, 09/05/2009, Additional history exists CERVICAL CANCER SCREENING 08/16/2015 HPV/Cotest (21-29) 08/16/2015 08/15/2010, 0 08/15/2010, 11/23/2008, Additional history exists HPV/Cotest (30-65) 08/16/2015 08/15/2010, 0 08/15/2010, 11/23/2008, Additional history exists DTAP/TDAP/TD VACCINES (2 - T d or Tdap) 11/14/2018 11/14/2008 BREAST CANCER SCREENING 2023 INFLUENZA VACCINE (#1) 2025 03/05/2015, 2011 Procedures Procedure Name Priority Date/Time Associated Diagnosis Comments HPV HIGH RISK DNA DETECTION Routine 08/15/2010 5:00 PM LIFE SKILLS SPECIALIST CERV/VAG CYTOPATH, THIN PREP IMAGR RFLX HPV Routine 08/15/2010 5:00 PM LIFE SKILLS SPECIALIST from Last 3 Months or Most Recently Relevant to Health Maintenance Results * (ABNORMAL) CERV/VAG CYTOPATH, THIN PREP IMAGR RFLX HPV (08/15/2010 5:00 PM LIFE SKILLS SPECIALIST) REPORT STATUS FINAL [facility] CLINICAL INFORMATION [facility] Comment: LAST MENSTRUAL PERIOD [facility] Comment:06 15 2010 PREV PAP: [facility] Comment:WNL PREV BX: [facility] Comment:Information not prov ided SOURCE [facility] [employer] [facility] Comment:Endocervix ADEQUACY: [facility] Comment: Satisfactory for evaluation. Endocervical/transformation zone component present. GENERAL CATEGORIZATION: (A) [facility] Comment:EPITHELIAL CELL ABNO RMALITY INTERPRETATION (A) [facility] Comment: Atypical Squamous Cells of Undetermined Significance (ASC-US) COMMENT [facility] [employer] [facility] Comment: This Pap test has been evaluated with computer assisted technology. As requested, sample is submitted for High Risk HPV DNA testing. Suggest clinical correlation and follow-up as clinically appropriate RADIOLOGY TECH: QU Hunch [facility] Comment:TUAN CORDOVA(ASCP) PATHOLOGIST [facility] Comment: Cooper Montenegro M.D., Board Certified in Anatomic Pathology and Cytopathology. (electronic signature) Test Performed at: Serviceful [facility] [address] [place] [address] BERTRAND KYLE DO 08/15/2010 5:00 PM LIFE SKILLS SPECIALIST Justus Landaverde MD PATHOLOGY/CYTOLOGY ORDERABLES Final Result INTERFACE SYSTEM Refer to clinic/hospital department [facility] [address] [place] [address] * HPV HIGH RISK DNA DETECTION (08/15/2010 5:00 PM LIFE SKILLS SPECIALIST) HPV HIGH RISK DNA DETECTION NOT DETECTED [facility] Comment: Reference range: Not Detected Tested for high risk types 16,18,31,33,35,39,45,51,52, 56,58,59,68. The analytical performance characteristics of this assay, when used to test SurePath or vaginal specimens, have been determined by [employer]. Methodology: Hybrid Capture with Signal Amplification. Test Performed at: Serviceful [facility] [address] [place] [address] BERTRAND KYLE DO 08/15/2010 5:00 PM LIFE SKILLS SPECIALIST 08/26/2010 10:13 AM CDT us Justus Landaverde MD PATHOLOGY/CYTOLOGY ORDERABLES Final Result INTERFACE SYSTEM Refer to clinic/hospital department [facility] [address] [address] from Last 3 Months or Most Recently Relevant to Health Maintenance Advance Directives For more information, please contact: [phone] * Full Code (Latest Code Status on [...] 7:35 PM 05/15/2009 12:25 AM Care Teams Sanitation Supervisor Relationship Specialty Start Date End Date Jameel Gorman MD PCP - General 11/23/08
--- OUTSIDE RECORDS SUMMARY | 2025-04-19 11:15 | XMS_ITS | Encounter Summary ---
Author Organization [facility] Address [address] [place] [address] Care Team Providers Care Spray Maker Name Role Phone Jameel Gorman MD Primary Care Provider [phone] Encounter Details Date Type Department Care Team (Late st Contact Info) Description 09/01/2007 Outpatient Historical [facility] Medicine [place] [address] [place] [address] Gurpreet Lew MD [address] [place] [address] Social History Tobacco Use Types Packs/Day Years Used Date Smoking Tobacco: Never Assessed Comments Unknown Sex and Gender Information Value Date Recorded Sex Assigned at Not on file Legal Sex Female 3:43 AM PEARL FISHERMAN Gender Identity Not on file Sexual Orientation Not on file documented as of this encounter Plan of Treatment Not on file documented as of this encounter Visit Diagnoses Not on filedocumented in this encounter Care Teams Spray Maker Relationship Specialty Start Date End Date Jameel Gorman MD PCP - General 11/23/08 documented as of this encounter
--- OUTSIDE RECORDS SUMMARY | 2025-04-19 11:15 | XMS_ITS | Encounter Summary ---
Author Organization [employer] Address [address] [place] [address] Care Team Providers Care Fractionating Still Operator Name Role Phone Jameel Gorman MD Primary Care Provider [phone] Encounter Details Date Type Department Care Team (Late st Contact Info) Description 12/15/1999 Emergency [facility] Justus Roldan Sprain of ankle, unspecified site (Primary Dx) Social History Tobacco Use Types Packs/Day Years Used Date Smoking Tobacco: Never Assessed Comments Unknown Sex and Gender Information Value Date Recorded Sex Assigned at Not on file Legal Sex Female 3:43 AM SUPERVISOR DRYING AND SOFTENING Gender Identity Not on file Sexual Orientation Not on file documented as of this encounter Plan of Treatment Not on file documented as of this encounter Visit Diagnoses Diagnosis Sprain of ankle, unspecified site- Primary documented in this encounter Care Teams Fractionating Still Operator Relationship Specialty Start Date End Date Jameel Gorman MD PCP - General 11/23/08 documented as of this encounter
--- OUTSIDE RECORDS SUMMARY | 2025-04-19 11:15 | XMS_ITS | Encounter Summary ---
Author Organization [facility] Address [address] [place] [address] Care Team Providers Care Laborer Brooder Farm Name Role Phone Jameel Gorman MD Primary Care Provider [phone] Encounter Details Date Type Department Care Team (Late st Contact Info) Description 07/22/2007 Outpatient Historical [facility] Medicine [place] [address] [address] [place] [address] Elsi Mehta, COMMERCIAL ADMINISTRATOR [address] [place] [address] Social History Tobacco Use Types Packs/Day Years Used Date Smoking Tobacco: Never Assessed Comments Unknown Sex and Gender Information Value Date Recorded Sex Assigned at Not on file Legal Sex Female 3:43 AM FOOD AND DRUG RESEARCH SCIENTIST Gender Identity Not on file Sexual Orientation Not on file documented as of this encounter Plan of Treatment Not on file documented as of this encounter Visit Diagnoses Not on filedocumented in this encounter Care Teams Laborer Brooder Farm Relationship Specialty Start Date End Date Jameel Gorman MD PCP - General 11/23/08 documented as of this encounter
--- OUTSIDE RECORDS SUMMARY | 2025-04-19 11:15 | XMS_ITS | Encounter Summary ---
Author Organization [facility] Address [address] [place] [address] Care Team Providers Care Collections Rep Name Role Phone Jameel Gorman MD Primary Care Provider [phone] Encounter Details Date Type Department Care Team (Late st Contact Info) Description 07/22/2007 Outpatient Historical [facility] Medicine [place] [address] [place] [address] Marge Ryan MD [address] [place] [address] Social History Tobacco Use Types Packs/Day Years Used Date Smoking Tobacco: Never Assessed Comments Unknown Sex and Gender Information Value Date Recorded Sex Assigned at Not on file Legal Sex Female 3:43 AM LICENSED CLUB MANAGER Gender Identity Not on file Sexual Orientation Not on file documented as of this encounter Plan of Treatment Not on file documented as of this encounter Visit Diagnoses Not on filedocumented in this encounter Care Teams Collections Rep Relationship Specialty Start Date End Date Jameel Gorman MD PCP - General 11/23/08 documented as of this encounter
--- OUTSIDE RECORDS SUMMARY | 2025-04-19 11:15 | XMS_ITS | Encounter Summary ---
Author Organization [facility] Address [address] [place] [address] Care Team Providers Care Production Sorter Name Role Phone Jameel Gorman MD Primary Care Provider [phone] Encounter Details Date Type Department Care Team (Late st Contact Info) Description 09/01/2007 Outpatient Historical [facility] Medicine [place] [address] [place] [address] Gurpreet Lew MD [address] [place] [address] Social History Tobacco Use Types Packs/Day Years Used Date Smoking Tobacco: Never Assessed Comments Unknown Sex and Gender Information Value Date Recorded Sex Assigned at Not on file Legal Sex Female 3:43 AM SERVICES REP Gender Identity Not on file Sexual Orientation Not on file documented as of this encounter Plan of Treatment Not on file documented as of this encounter Visit Diagnoses Not on filedocumented in this encounter Care Teams Production Sorter Relationship Specialty Start Date End Date Jameel Gorman MD PCP - General 11/23/08 documented as of this encounter
--- OUTSIDE RECORDS SUMMARY | 2025-04-19 11:15 | XMS_ITS | Encounter Summary ---
Author Organization [employer] Address [address] [place] [address] Care Team Providers Care Correctional Manager Name Role Phone Jameel Gorman MD Primary Care Provider Encounter Details Date Type Department Care Team (Late st Contact Info) Description 07/27/2007 Outpatient Historical [facility] [place] [address] [place] [address] Gustavo Herrera MD [address] [place] [address] Social History Tobacco Use Types Packs/Day Years Used Date Smoking Tobacco: Never Assessed Comments Unknown Sex and Gender Information Value Date Recorded Sex Assigned at Not on file Legal Sex Female 3:43 AM AIRCRAFT DELIVERY CHECKER Gender Identity Not on file Sexual Orientation Not on file documented as of this encounter Plan of Treatment Not on file documented as of this encounter Visit Diagnoses Not on filedocumented in this encounter Care Teams Correctional Manager Relationship Specialty Start Date End Date Jameel Gorman MD PCP - General 11/23/08 documented as of this encounter
--- OUTSIDE RECORDS SUMMARY | 2025-04-19 11:15 | XMS_ITS | Encounter Summary ---
Author Organization [employer] [facility] Address [address] [place] [address] Care Team Providers Care Document Management Specialist Name Role Phone Jameel Gorman MD Primary Care Provider [phone] Encounter Details Date Type Department Care Team (Late st Contact Info) Description 07/27/2007 Outpatient Historical [facility] Jimi Lew MD [address] [place] [address] Social History Tobacco Use Types Packs/Day Years Used Date Smoking Tobacco: Never Assessed Comments Unknown Sex and Gender Information Value Date Recorded Sex Assigned at Not on file Legal Sex Female 3:43 AM DIGITAL X RAY SERVICE ENGINEER Gender Identity Not on file Sexual Orientation Not on file documented as of this encounter Plan of Treatment Not on file documented as of this encounter Procedures Procedure Name Priority Date/Time Associated Diagnosis Comments NM MYOCARD PERF IMAG SPECT MULT Routine 07/27/2007 7:27 AM DIGITAL X RAY SERVICE ENGINEER documented in this encounter Results * NM MYOCARD PERF IMAG SPECT MULT (07/27/2007 7:27 AM DIGITAL X RAY SERVICE ENGINEER) 07/27/2007 7:27 AM DIGITAL X RAY SERVICE ENGINEER Narrative INTERFACE SYSTEM - 07/27/2007 3:50 PM DIGITAL X RAY SERVICE ENGINEER [address] [address] Imaging Services Procedure Completion Date Ordering Provider Accession Number NM Myocardial 07/27/2007 JIMI LEW [id number] Scan Spect 10:01:00 AM Multiple [P] Reason [...] F Admitting MD: JIMI LEW Birthdate: 1985 third helper:JIMI LEW CMRN:[id number] Room: [facility]: [phone] [address] Imaging Services Procedure Completion Date Ordering Provider Accession Number NM Myocardial 07/27/2007 JIMI LEW [id number] Scan Spect 10:01:00 AM Multiple [P] Impression: [...] F Admitting MD: JIMI LEW Birthdate: 1985 third helper:JIMI LEW CMRN:[id number] Room: [facility]: [address] [place] [address] Procedure Note Cha Herrera MD - 07/27/[address] [address] Imaging Services Procedure Completion Date Ordering Provider AccessionNumber NM Myocardial 07/27/2007 JIMI LEW [id number] Scan Spect 10:01:00 AM Multiple [P] Reason [...] the patient was injected intravenously with 40.4 [id number] Myoview and exercise was continued for 2 [...] F Admitting MD: JIMI LEW Birthdate: 1985 third helper:JIMI LEW CMRN:[id number] Room: [facility]: [phone] [address] Imaging Services Procedure Completion Date Ordering Provider AccessionNumber NM Myocardial 07/27/2007 JIMI LEW [id number] Scan Spect 10:01:00 AM Multiple [P] Impression: [...] F Admitting MD: JIMI LEW Birthdate: 1985 third helper:JIMI LEW CMRN:[id number] Room: [facility]: [phone] us Jimi Lew MD NM ORDERABLES Final Re sult INTERFACE SYSTEM Refer to clinic/hospital department documented in this encounter Visit Diagnoses Not on filedocumented in this encounter Care Teams Document Management Specialist Relationship Specialty Start Date End Date Jameel Gorman MD PCP - General 11/23/08 documented as of this encounter
--- OUTSIDE RECORDS SUMMARY | 2025-04-19 11:15 | XMS_ITS | Encounter Summary ---
Author Organization [facility] Address [address] [place] [address] Care Team Providers Care Mill Tender Second Operator Name Role Phone Jameel Gorman MD Primary Care Provider [phone] Encounter Details Date Type Department Care Team (Late st Contact Info) Description 10/04/2007 Outpatient Historical [facility] Medicine [place] [address] [place] [address] Gurpreet Lew MD [address] [place] [address] Social History Tobacco Use Types Packs/Day Years Used Date Smoking Tobacco: Never Assessed Comments Unknown Sex and Gender Information Value Date Recorded Sex Assigned at Not on file Legal Sex Female 3:43 AM STEAM BOILER FIREMAN Gender Identity Not on file Sexual Orientation Not on file documented as of this encounter Plan of Treatment Not on file documented as of this encounter Visit Diagnoses Not on filedocumented in this encounter Care Teams Mill Tender Second Operator Relationship Specialty Start Date End Date Jameel Gorman MD PCP - General 11/23/08 documented as of this encounter
--- OUTSIDE RECORDS SUMMARY | 2025-04-19 11:15 | XMS_ITS | Encounter Summary ---
Author Organization [facility] Address [address] [place] [address] Care Team Providers Care Livestock Sales Representative Name Role Phone Jameel Gorman MD Primary Care Provider [phone] Encounter Details Date Type Department Care Team (Late st Contact Info) Description 07/22/2007 Orders Only [facility] Medicine [place] [address] [place] [address] Elsi Mehta NP [address] [place] [address] Social History Tobacco Use Types Packs/Day Years Used Date Smoking Tobacco: Never Assessed Comments Unknown Sex and Gender Information Value Date Recorded Sex Assigned at Not on file 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 Kidneys not palpable. NEUROLOGIC: CRANIAL NERVES: mission commander II-XII grossly intact. OFFICE PROCEDURES: RAPID FLU: [...] NEW PRESCRIPTION, 07/22/2007. LAB ORDERS: Order number: [id number] Test Ordered: RAPID FLU [id number] PATIENT EDUCATION: Instructed on disease process and [...] laboratory. STATUS: Improved. LAB ORDERS: Order number: [id number] Test Ordered: URINALYSIS W/O MICRO [id number] PATIENT EDUCATION: Instructed on BRAT diet. Increase [...] on filedocumented in this encounter Care Teams Livestock Sales Representative Relationship Specialty Start Date End Date Jameel Gorman MD PCP - General 11/23/08 documented as of this encounter
--- OUTSIDE RECORDS SUMMARY | 2025-04-19 11:15 | XMS_ITS | Encounter Summary ---
Author Organization [facility] Address [address] [place] [address] Care Team Providers Care Web Production Artist Name Role Phone Jameel Gorman MD Primary Care Provider [phone] Encounter Details Date Type Department Care Team (Late st Contact Info) Description 09/01/2007 Outpatient Historical [facility] Medicine [place] [address] [place] [address] Gurpreet Lew MD [address] [place] [address] Social History Tobacco Use Types Packs/Day Years Used Date Smoking Tobacco: Never Assessed Comments Unknown Sex and Gender Information Value Date Recorded Sex Assigned at Not on file 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
--- OUTSIDE RECORDS SUMMARY | 2025-04-19 11:15 | XMS_ITS | Encounter Summary ---
Author Organization [facility] Address [address] [place] [address] Care Team Providers Care Corporate Trainer Name Role Phone Jameel Gorman MD Primary Care Provider [phone] Encounter Details Date Type Department Care Team (Late st Contact Info) Description 07/22/2007 Outpatient Historical [facility] Medicine [place] [address] [place] [address] Marge Ryan MD [address] [place] [address] Social History Tobacco Use Types Packs/Day Years Used Date Smoking Tobacco: Never Assessed Comments Unknown Sex and Gender Information Value Date Recorded Sex Assigned at Not on file 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
--- OUTSIDE RECORDS SUMMARY | 2025-04-19 11:15 | XMS_ITS | Encounter Summary ---
Author Organization [facility] Address [address] [place] [address] Care Team Providers Care Health Clinician Name Role Phone Jameel Gorman MD Primary Care Provider [phone] Encounter Details Date Type Department Care Team (Late st Contact Info) Description 09/01/2007 Orders Only [facility] [address] [facility] [address] [place] [address] Gurpreet Lew MD [address] [place] [address] Social History Tobacco Use Types Packs/Day Years Used Date Smoking Tobacco: Never Assessed Comments Unknown Sex and Gender Information Value Date Recorded Sex Assigned at Not on file Legal Sex Female 3:43 AM DIRECTOR NICU Gender Identity Not on file Sexual Orientation [...] Also has some pain at the base ofher neck. Feels very tense. Pt wanting to [...] smoked for 5 to 10 years. 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 ALCOHOL: The patient drinks alcohol 5 to [...] NEW PRESCRIPTION, 09/01/2007. LAB ORDERS: Order number: [id number] Test Ordered: SMOKING CESSATION, 3-10 MIN 71316 461.9-SINUSITIS UNSPECIFIED ASSESSMENT: The patient's acute sinusitis [...] on filedocumented in this encounter Care Teams Health Clinician Relationship Specialty Start Date End Date Jameel Gorman MD PCP - General 11/23/08 documented as of this encounter
--- OUTSIDE RECORDS SUMMARY | 2025-04-19 11:15 | XMS_ITS | Encounter Summary ---
Author Organization [employer] Address 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 Sex Female 3:43 AM GRINDER Gender Identity Not on file Sexual Orientation Not on file documented as of this encounter Plan of Treatment Not on file documented as of this encounter Procedures Procedure Name Priority Date/Time Associated Diagnosis Comments US PELVIS + TRANSVAG NON OB Stat 08/14/2007 11:00 AM GRINDER CBC WITH DIFFERENTIAL Stat 08/14/2007 10:19 AM GRINDER LIPASE Stat 08/14/2007 10:19 AM GRINDER HEPATIC FUNCTION PANEL Stat 08/14/2007 10:19 AM GRINDER BASIC METABOLIC PANEL Stat 08/14/2007 10:19 AM GRINDER URINALYSIS WITH REFLEX CULTURE Stat 08/14/2007 10:10 AM GRINDER URINALYSIS W/REFLEX MICROSCOPIC Stat 08/14/2007 10:10 AM GRINDER HCG QUALITATIVE, URINE Stat 08/14/2007 10:10 AM GRINDER documented in this encounter Results * US PELVIS + TRANSVAG NON OB (08/14/2007 11:00 AM GRINDER) Anatomical Region Laterality Modality Pelvis Other 08/14/2007 11:0 0 AM GRINDER Narrative 08/14/2007 11:58 AM GRINDER [address] [address] Admit Date: 08/14/2007 JOSE ANGELA R Sex: F Admit Prov: ER, AUTHORIZED P Date: 1985 Primary Care Prov: JIMI MCGARRY CMRN: [id number] Room: [facility] SSN: [id number] IMAGING SERVICES Ordering Prov: N/A Accession Number: [id number] Interpretation TRANSABDOMINAL PELVIC ULTRASOUND, 08/14/2007 History: Left [...] MD Procedure Note Provider, Historical - 08/14/[address] [place] [address] Admit Date: 08/14/2007 ANGELA DOSHI Sex: F Admit Prov: YANCI NEWTON Date: 1985 Primary Care Prov: JIMI MCGARRY CMRN: [id number] Room: [facility] SSN: [id number] IMAGING SERVICES Ordering Prov: N/A Interpretation TRANSABDOMINAL [...] (ABNORMAL) CBC WITH DIFFERENTIAL (08/14/2007 10:19 AM GRINDER) RBC 4.72 3.90 - 4.90 M/uL [facility] MCHC 33.7 31.5 - 35.5 % [facility] MCV 89.2 82.0 - 99.0 fL [facility] PLATELETS 351(H) 140 - 350 K/uL [facility] HEMOGLOBIN 14.2 11.8 - 14.8 g/dL [facility] RDW 12.5 11.5 - 14.5 % [facility] WBC 8.7 4.0 - 9.8 K/uL [facility] MPV 10.3 9.3 - 12.4 fL [facility] MCH 30.1 27.2 - 32.6 pg [facility] HEMATOCRIT 42.1 35.5 - 44.0 % [facility] RDW-STDEV 39.7 37.1 - 48.7 fL [facility] LYMPHOCYTES 31 16 - 45 % [facility] LYMPHOCYTE ABSOLUTE 2.70 0.70 - 4.50 K/uL [facility] BASOPHILS 0 0 - 2 % [facility] BASOPHILS ABSOLUTE 0.02 0.00 - 0.20 K/uL [facility] MONOCYTES 5 3 - 13 % [facility] MONOCYTE ABSOLUTE 0.47 0.10 - 1.30 K/uL [facility] NEUTROPHILS 61 45 - 70 % [facility] NEUTROPHIL ABSOLUTE 5.36 1.90 - 7.00 K/uL [facility] EOSINOPHILS 2 0 - 7 % [facility] EOSINOPHIL ABSOLUTE 0.19 0.00 - 0.70 K/uL [facility] Blood specimen (specimen) 08/14/2007 10:19 AM GRINDER 08/14/2007 10:20 AM GRINDER us Mook Rodgers MD HEMATOLOGY ORDERABLES Edited [facility] [address] [place] [address] * (ABNORMAL) HEPATIC FUNCTION PANEL (08/14/2007 10:19 AM GRINDER) BILIRUBIN TOTAL 0.3 0.2 - 1.0 mg/dL [facility] ALT 10 0 - 31 U/L [facility] AST 11(L) 12 - 32 U/L [facility] ALBUMIN 4.2 3.4 - 4.8 g/dL [facility] BILIRUBIN DIRECT <0.1 0.0 - 0.3 mg/dL [facility] TOTAL PROTEIN 7.4 6.0 - 8.3 g/dL [facility] ALKALINE PHOSPHATASE 62 35 - 104 U/L [facility] Blood specimen (specimen) 08/14/2007 10:19 AM GRINDER 08/14/2007 10:20 AM GRINDER Mook Rodgers MD CHEMISTRY ORDERABLES Final Res ult Performing Organization Address [facility] Co de Phone Number [facility] [address] [place] [address] * LIPASE (08/14/2007 10:19 AM GRINDER) LIPASE 21 13 - 60 U/L [facility] Blood specimen (specimen) 08/14/2007 10:19 AM GRINDER 08/14/2007 10:20 AM GRINDER us Mook Rodgers MD CHEMISTRY ORDERABLES Final Res ult Performing Organization Address [facility] de Phone Number [facility] [address] [place] [address] * (ABNORMAL) BASIC METABOLIC PANEL (08/14/2007 10:19 AM GRINDER) CO2 29 22 - 30 mmol/L [facility] CALCIUM 9.4 8.6 - 10.2 mg/dL [facility] POTASSIUM 3.9 3.5 - 4.9 mmol/L [facility] GLUCOSE 100(H) 65 - 99 mg/dL [facility] CHLORIDE 105 96 - 108 mmol/L [facility] BUN 8 6 - 20 mg/dL [facility] CREATININE 0.63 0.51 - 0.95 mg/dL [facility] SODIUM 141 135 - 145 mmol/L [facility] GFR, >60 >=60 mL/min/1. 7 sq meter [facility] GFR >60 >=60 mL/min/1. 7 sq meter [facility] Comment: Estimated GFR rate interpretative information for both Americans and non- Americans is available on the [facility] Intranet at: [email or web address] Select: Lab Policies and Procedures Select: Reference Ranges - GFR Blood specimen (specimen) 08/14/2007 10:19 AM GRINDER 08/14/2007 10:20 AM GRINDER Mook Rodgers MD CHEMISTRY ORDERABLES Edited Performing Organization Address City/[facility]/ZIP Co de Phone Number [facility] [address] [place] [address] * URINALYSIS (08/14/2007 10:10 AM GRINDER) COLOR UA Yellow [facility] NITRITE UA Negative Negative [facility] BILIRUBIN UA Negative Negative [facility] PH UA 6.5 5.0 - 8.0 [facility] KETONES UA Negative Negative [facility] CLARITY UA Clear Clear [facility] BLOOD UA Negative Negative [facility] PROTEIN UA Negative Negative [facility] LEUKOCYTE ESTERASE UA Negative Negative [facility] UROBILINOGEN UA <1 <1 mg/dL [facility] SPECIFIC GRAVITY UA 1.015 1.001 - 1.035 [facility] GLUCOSE UA Negative Negative [facility] Urine, clean catch 08/14/2007 10:10 AM GRINDER 08/14/2007 10:14 AM GRINDER us Mook Rodgers MD URINE ORDERABLES Final Result Performing Organization Address City/[facility]/ZIP Co de Phone Number [facility] [address] [place] [address] * URINALYSIS WITH REFLEX CULTURE (08/14/2007 10:10 AM GRINDER) URINE CULTURE ORDER Not Indicated [facility] Comment: Criteria for a reflex culture include one or more of the following: Abnormal WBCs, RBCs or bacteria. Lack of qualifying criteria does not exclude the possibility of a urinary tract infection. Dilute urine, drug interference, etc. may decrease the sensitivity of the criteria analytes. Urine, clean catch 08/14/2007 10:10 AM GRINDER 08/14/2007 10:14 AM GRINDER Mook Rodgers MD URINE ORDERABLES Final Result Performing Organization Address [facility]/ZIP Co de Phone Number [facility] [address] [place] [address] * BETA HCG QUALITATIVE, URINE (08/14/2007 10:10 AM GRINDER) SPECIFIC GRAVITY UA 1.015 1.001 - 1.035 [facility] HCG QUAL URINE Negative Negative [facility] Urine specimen (specimen) 08/14/2007 10:10 AM GRINDER 08/14/2007 10:14 AM GRINDER Mook Rodgers MD URINE ORDERABLES Final Result Performing Organization Address City/[facility] Co de Phone Number [facility] [address] [place] [address] documented in this encounter Visit Diagnoses Not on filedocumented in this encounter Care Teams Volcanologist Relationship Specialty Start Date End Date Jameel Gorman MD PCP - General 11/23/08 documented as of this encounter
--- OUTSIDE RECORDS SUMMARY | 2025-04-19 11:15 | XMS_ITS | Encounter Summary ---
Author Organization [facility] Address [address] [place] [address] Care Team Providers Care Field Service Poultry Technician Name Role Phone Jameel Gorman MD Primary Care Provider [phone] Encounter Details Date Type Department Care Team (Late st Contact Info) Description 07/22/2007 Outpatient Historical [facility] Medicine [place] [address] [facility] [address] [place] [address] Marge Ryan MD [address] [place] [address] Social History Tobacco Use Types Packs/Day Years Used Date Smoking Tobacco: Never Assessed Comments Unknown Sex and Gender Information Value Date Recorded Sex Assigned at Not on file 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
--- OUTSIDE RECORDS SUMMARY | 2025-04-19 11:15 | XMS_ITS | Encounter Summary ---
Author Organization [employer] Address 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
--- OUTSIDE RECORDS SUMMARY | 2025-04-19 11:16 | XMS_ITS | Encounter Summary ---
Author Organization [facility] Address 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
--- OUTSIDE RECORDS SUMMARY | 2025-04-19 11:16 | XMS_ITS | Encounter Summary ---
Author Organization [employer] Address 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
--- OUTSIDE RECORDS SUMMARY | 2025-04-19 11:16 | XMS_ITS | Encounter Summary ---
Author Organization [facility] Address [address] [place] [address] Care Team Providers Care Cost Control Specialist Name Role Phone Jameel Gorman MD Primary Care Provider [phone] Encounter Details Date Type Department Care Team (Late st Contact Info) Description 06/30/2007 Outpatient Historical [facility] Medicine [place] [address] [place] [address] [address] [place] [address] Gurpreet Lew MD [address] [place] [address] Social History Tobacco Use Types Packs/Day Years Used Date Smoking Tobacco: Never Assessed Comments Unknown Sex and Gender Information Value Date Recorded Sex Assigned at Not on file Legal Sex Female 3:43 AM DERMATOLOGY SALES REPRESENTATIVE Gender Identity Not on file Sexual Orientation Not on file documented as of this encounter Last Filed Vital Signs Vital Sign Reading Time Taken Comments Blood Pressure 150/78 06/30/2007 9:30 AM DERMATOLOGY SALES REPRESENTATIVE Pulse 90 06/30/2007 9:30 AM DERMATOLOGY SALES REPRESENTATIVE Temperature 36.1 C (97 F) 06/30/2007 9:30 AM DERMATOLOGY SALES REPRESENTATIVE Respiratory Rate 16 06/30/2007 9:30 AM DERMATOLOGY SALES REPRESENTATIVE Oxygen Saturation - - Inhaled Oxygen Concentration - - Weight 84.4 kg (186 lb) 06/30/2007 9:30 AM DERMATOLOGY SALES REPRESENTATIVE Height - - Body Mass Index - - documented in this encounter Plan of Treatment Not on file documented as of this encounter Visit Diagnoses Not on filedocumented in this encounter Care Teams Cost Control Specialist Relationship Specialty Start Date End Date Jameel Gorman MD PCP - General 11/23/08 documented as of this encounter
--- OUTSIDE RECORDS SUMMARY | 2025-04-19 11:16 | XMS_ITS | Encounter Summary ---
Author Organization [facility] Address [address] [place] [address] Care Team Providers Care Wool Carder Name Role Phone Jameel Gorman MD Primary Care Provider [phone] Encounter Details Date Type Department Care Team (Late st Contact Info) Description 10/04/2007 Outpatient Historical [facility] Medicine [place] [address] [facility] [address] [place] [address] Gurpreet Lew MD [address] [place] [address] Social History Tobacco Use Types Packs/Day Years Used Date Smoking Tobacco: Never Assessed Comments Unknown Sex and Gender Information Value Date Recorded Sex Assigned at Not on file 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
--- OUTSIDE RECORDS SUMMARY | 2025-04-19 11:16 | XMS_ITS | Encounter Summary ---
Author Organization [facility] Address [address] [place] [address] Care Team Providers Care Geothermal Electrical Engineer Name Role Phone Jameel Gorman MD Primary Care Provider [phone] Encounter Details Date Type Department Care Team (Late st Contact Info) Description 03/30/2007 Outpatient Historical [facility] [place] [address] [place] [phone] Justus Landaverde MD 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
--- OUTSIDE RECORDS SUMMARY | 2025-04-19 11:16 | XMS_ITS | Encounter Summary ---
Author Organization [facility] Address [address] [place] [address] Care Team Providers Care Changer Fixer Name Role Phone Jameel Gorman MD Primary Care Provider [phone] Encounter Details Date Type Department Care Team (Late st Contact Info) Description 06/30/2007 Outpatient Historical [facility] Medicine [place] [address] [facility] [address] [facility] [address] [place] [address] Gurpreet Lew MD [address] [place] [address] Palpitations Social History Tobacco Use Types Packs/Day Years Used Date Smoking Tobacco: Never Assessed Comments Unknown Sex and Gender Information Value Date Recorded Sex Assigned at Not on file Legal Sex Female 3:43 AM PHYSICIAN SPECIALIST Gender Identity Not on file Sexual Orientation Not on file documented as of this encounter Plan of Treatment Not on file documented as of this encounter Procedures Procedure Name Priority Date/Time Associated Diagnosis Comments CBC WITH DIFFERENTIAL Routine 06/30/2007 10:33 AM PHYSICIAN SPECIALIST CBC WITH DIFFERENTIAL Routine 06/30/2007 10:33 AM PHYSICIAN SPECIALIST TSH Routine 06/30/2007 10:33 AM PHYSICIAN SPECIALIST MAGNESIUM LEVEL Routine 06/30/2007 10:33 AM PHYSICIAN SPECIALIST LIPID PANEL Routine 06/30/2007 10:33 AM PHYSICIAN SPECIALIST COMPREHENSIVE METABOLIC PANEL Routine 06/30/2007 10:33 AM PHYSICIAN SPECIALIST documented in this encounter Results * CBC WITH DIFFERENTIAL (06/30/2007 10:33 AM PHYSICIAN SPECIALIST) NEUTROPHILS 62 45 - 70 % INTERFAC [...] K/uL INTERFACE SYSTEM 06/30/2007 10:3 3 AM PHYSICIAN SPECIALIST us Gurpreet Lew MD HEMATOLOGY ORDERABLES Ed ited INTERFACE SYSTEM Refer to clinic/hospital department * (ABNORMAL) CBC WITH DIFFERENTIAL (06/30/2007 10:33 AM PHYSICIAN SPECIALIST) Pathologist [facility] WBC 7.9 4.0 - 9.8 K/uL INTERFACE [...] fL INTERFACE SYSTEM 06/30/2007 10:3 3 AM PHYSICIAN SPECIALIST Gurpreet Lew MD HEMATOLOGY ORDERABLES Ed ited INTERFACE SYSTEM Refer to clinic/hospital department * TSH (06/30/2007 10:33 AM PHYSICIAN SPECIALIST) TSH 1.98 0.27 - 4.20 uU/mL INTERFACE SYSTEM 06/30/2007 10:3 3 AM PHYSICIAN SPECIALIST Gurpreet Lew MD CHEMISTRY ORDERABLES Mynor mason Performing Organization Address City/[facility] Co de Phone Number INTERFACE SYSTEM Refer to clinic/hospital department * MAGNESIUM LEVEL (06/30/2007 10:33 AM PHYSICIAN SPECIALIST) MAGNESIUM 2.1 1.5 - 2.5 mg/dL INTERFACE SYSTEM 06/30/2007 10:3 3 AM PHYSICIAN SPECIALIST Gurpreet Lew MD CHEMISTRY ORDERABLES Mynor mason Performing Organization Address [facility] Co de Phone Number INTERFACE SYSTEM Refer to clinic/hospital department * (ABNORMAL) COMPREHENSIVE METABOLIC PANEL (06/30/2007 10:33 AM PHYSICIAN SPECIALIST) GLUCOSE 88 65 - 99 mg/dL INTERFACE [...] and non- Americans is available on the [facility] Intranet at: [email or web address] Select: Lab Policies and Procedures Select: Reference Ranges - GFR 06/30/2007 10:3 3 AM PHYSICIAN SPECIALIST Gurpreet Lew MD CHEMISTRY ORDERABLES Mynor mason Performing Organization Address [facility] Phone Number INTERFACE SYSTEM Refer to clinic/hospital department * (ABNORMAL) LIPID PANEL (06/30/2007 10:33 AM PHYSICIAN SPECIALIST) CHOLESTEROL 164 100 - 199 mg/dL INTERFACE SYSTEM TRIGLYCERIDE 51 10 - 149 mg/dL INTERFACE SYSTEM HDL 36(L) 40 - 59 mg/dL INTERFACE SYSTEM LDL CALCULATED 118(H) <=99 mg/dL INTERFACE SYSTEM CHOL/HDL RATIO 4.6 2.0 - 5.0 INTER FACE SYSTEM LIPID PANEL COMMENT See Below INTERFACE SYSTEM Comment: The adult ATP and pediatric NCEP classifications for lipids are available on the [facility] Intranet at: [email or web address] Select: Lab Policies and Procedures,Current Select: Lipid Panel Interpretation 06/30/2007 10:3 3 AM PHYSICIAN SPECIALIST Gurpreet Lew MD CHEMISTRY ORDERABLES Mynor mason Performing Organization Address [facility] Co de Phone Number INTERFACE SYSTEM Refer to clinic/hospital department documented in this encounter Visit Diagnoses Diagnosis Palpitations documented in this encounter Care Teams Changer Fixer Relationship Specialty Start Date End Date Jameel Gorman MD PCP - General 11/23/08 documented as of this encounter
--- OUTSIDE RECORDS SUMMARY | 2025-04-19 11:16 | XMS_ITS | Encounter Summary ---
Author Organization [employer] Address [address] [place] [address] Care Team Providers Care Biomedical Instrument Technician Name Role Phone Jameel Gorman MD Primary Care Provider Encounter Details Date Type Department Care Team (Latest Contact Info) Description 11/17/2007 Outpatient Historical [facility] Justus Landaverde MD [address] [facility] [place] [address] Contact with or Exposure to Venereal Diseases Social History Tobacco Use Types Packs/Day Years Used Date Smoking Tobacco: Never Assessed Comments Unknown Sex and Gender Information Value Date Recorded Sex Assigned at Not on file Legal Sex Female 3:43 AM DRUPAL ARCHITECT Gender Identity Not on file Sexual Orientation [...] CORE IGM (11/17/2007 10:46 AM CDT) Pathologist [facility] HEPATITIS B CORE IGM NON-REACT PARVEZ NON-REACT PARVEZ [facility] Comment: Lab test performed by: [facility] [address] BERTRAND MCINTYRE MD Blood specimen (specimen) 11/17/2007 10:46 AM CDT 11/17/2007 10:47 AM CDT Justus Landaverde MD CHEMISTRY ORDERABLES Final Res ult Performing Organization Address [facility] de Phone Number [facility] CLIA# [id number] [address] [place] [address] * HEPATITIS C ANTIBODY (11/17/2007 10:46 AM CDT) Pathologist [facility] HEPATITIS C AB NON-REACT PARVEZ NON-REACT PARVEZ [facility] SIGNAL TO CUT OFF 0.09 <1.00 [facility] Comment: Lab test performed by: [facility] [address] BERTRAND MCINTYRE MD Blood specimen (specimen) 11/17/2007 10:46 AM CDT 11/17/2007 10:47 AM CDT Justus Landaverde MD CHEMISTRY ORDERABLES Final Res ult Performing Organization Address [facility] Co de Phone Number [facility] CLIA# [id number] [address] [place] [address] * HEPATITIS A IGM (11/17/2007 10:46 AM CDT) Pathologist [facility] HEPATITIS A IGM NON-REACT PARVEZ NON-REACT PARVEZ [facility] Comment: Lab test performed by: [facility] [address] BERTRAND MCINTYRE MD Blood specimen (specimen) 11/17/2007 10:46 AM CDT 11/17/2007 10:47 AM CDT us Justus Landaverde MD CHEMISTRY ORDERABLES Final Res ult Performing Organization Address [facility] Co de Phone Number [facility] CLIA# [id number] [address] [place] [address] * HEPATITIS B SURFACE ANTIGEN (11/17/2007 10:46 AM CDT) HEPATITIS B SURFACE AG NON-REACT PARVEZ NON-REACT PARVEZ [facility] Comment: Lab test performed by: [facility] [address] BERTRAND MCINTYRE MD Blood specimen (specimen) 11/17/2007 10:46 AM CDT 11/17/2007 10:47 AM CDT us Justus Landvaerde MD CHEMISTRY ORDERABLES Final Res ult Performing Organization Address [facility] Co de Phone Number [facility] CLIA# [id number] [address] [place] [address] * RPR (11/17/2007 10:46 AM CDT) Pathologist [facility] RPR NON-REACTI VE NON-REACT PARVEZ [facility] Comment: Lab test performed by: [facility] [address] [address] [place] [address] BERTRAND MCINTYRE MD Blood specimen (specimen) 11/17/2007 10:46 AM CDT 11/17/2007 10:47 AM CDT us Justus Landaverde MD CHEMISTRY ORDERABLES Final Res ult Performing Organization Address [facility] Co de Phone Number [facility] CLIA# [id number] [address] [place] [address] * HIV ANTIBODY W/REFLX CONFIRMATION (11/17/2007 10:46 AM CDT) HIV-1 AND 2 ABS NON-REACT PARVEZ NON-REACT PARVEZ [facility] Comment: A NON-REACTIVE HIV 1/2 ANTIBODY RESULT DOES NOT EXCLUDE HIV INFECTION SINCE THE TIME FRAME FOR SEROCONVERSION IS VARIABLE. IF ACUTE HIV INFECTION IS SUSPECTED, ANTIBODY RETESTING AND NUCLEIC ACID AMPLIFICATION (HIV DNA/RNA) TESTING IS RECOMMENDED. Lab test performed by: [facility] [address] BERTRAND MCINTYRE MD Effective November 09, 2006, HIV 1/2 Antibody Screen with Reflexed Confirmation has replaced HIV-1 Antibody Screen. HIV-1 Antibody Screen is no longer offered due to lack of available kits from the gardener. Blood specimen (specimen) 11/17/2007 10:46 AM CDT 11/17/2007 10:47 AM CDT us Justus Landaverde MD CHEMISTRY ORDERABLES Final Res ult [facility] CLIA# [id number] [address] [place] [address] documented in this encounter Visit Diagnoses Diagnosis Contact with or exposure to venereal diseases documented in this encounter Care Teams Biomedical Instrument Technician Relationship Specialty Start Date End Date Jameel Gorman MD PCP - General 11/23/08 documented as of this encounter
--- OUTSIDE RECORDS SUMMARY | 2025-04-19 11:16 | XMS_ITS | Encounter Summary ---
Author Organization [facility] Address [address] [place] [address] Care Team Providers Care Electronic Sales And Service Technician Name Role Phone Jameel Gorman MD Primary Care Provider [phone] Encounter Details Date Type Department Care Team (Late st Contact Info) Description 10/04/2007 Outpatient Historical [facility] Medicine [place] [address] [place] [address] [address] [place] [address] Gurpreet Lew MD [address] [place] [address] Dysmenorrhea Social History Tobacco Use Types Packs/Day Years Used Date Smoking Tobacco: Never Assessed Comments Unknown Sex and Gender Information Value Date Recorded Sex Assigned at Not on file Legal Sex Female 3:43 AM WATER COMMISSIONER Gender Identity Not on file Sexual Orientation [...] QUANT, BLOOD 0.1 0.0 - 5.0 mIU/mL [facility] Comment: A result of 5-25 [...] Lew MD CHEMISTRY ORDERABLES Fin al Result [facility] [address] [place] [address] * PROLACTIN (10/04/2007 3:45 PM CDT) Pathologist [facility] PROLACTIN 9.45 4.79 - 23.30 ng/mL [facility] Comment: Female: Non- Reference Range 18 years - Adult = 4.79 - 23.30 ng/mL No Reference Range Established for patients less than 18 years of age. Blood specimen (specimen) 10/04/2007 3:45 PM CDT 10/04/2007 6:12 PM CDT Gurpreet Lew MD CHEMISTRY ORDERABLES Fin al Result Performing Organization Address [facility] Co de Phone Number [facility] [address] [place] [address] * GC AND CHLAMYDIA PROBE (10/04/2007 3:30 PM CDT) PRELIMINARY REPORT Pending [facility] FINAL REPORT No Neisseria gonorrhoeae detected. No Chlamydia trachomatis detected. [facility] Endocervical 10/04/2007 3:30 PM CDT 10/05/2007 9:36 AM CDT Narrative [facility] - 10/05/2007 12:15 PM CDT All [...] Final Result Performing Organization Address [facility]/ZIP Co de Phone Number [facility] [address] [place] [address] documented in this encounter Visit Diagnoses Diagnosis Dysmenorrhea documented in this encounter Care Teams Electronic Sales And Service Technician Relationship Specialty Start Date End Date Jameel Gorman MD PCP - General 11/23/08 documented as of this encounter
--- OUTSIDE RECORDS SUMMARY | 2025-04-19 11:16 | XMS_ITS | Encounter Summary ---
Author Organization [facility] Address [address] [place] [address] Care Team Providers Care Research Psychologist Name Role Phone Jameel Gorman MD Primary Care Provider [phone] Encounter Details Date Type Department Care Team (Late st Contact Info) Description 07/01/2007 Outpatient Historical [facility] [place] [address] [place] [address] Justus Landaverde MD [address] [place], [place] [id number] Social History Tobacco Use Types Packs/Day Years Used Date Smoking Tobacco: Never Assessed Comments Unknown Sex and Gender Information Value Date Recorded Sex Assigned at Not on file Legal Sex Female 3:43 AM VENEER TRIMMER Gender Identity Not on file Sexual Orientation Not on file documented as of this encounter Plan of Treatment Not on file documented as of this encounter Visit Diagnoses Not on filedocumented in this encounter Care Teams Research Psychologist Relationship Specialty Start Date End Date Jameel Gorman MD PCP - General 11/23/08 documented as of this encounter
--- OUTSIDE RECORDS SUMMARY | 2025-04-19 11:16 | XMS_ITS | Encounter Summary ---
Author Organization [facility] Address [address] [place] [address] Care Team Providers Care Icd 9 Coder Name Role Phone Jameel Gorman MD Primary Care Provider [phone] Encounter Details Date Type Department Care Team (Late st Contact Info) Description 05/10/2007 Outpatient Historical [facility] [place] [address] [place] [address] Justus Landaverde MD [address] [place], [place] [address] Social History Tobacco Use Types Packs/Day Years Used Date Smoking Tobacco: Never Assessed Comments Unknown Sex and Gender Information Value Date Recorded Sex Assigned at Not on file Legal Sex Female 3:43 AM TRADE PROMOTION ANALYST Gender Identity Not on file Sexual Orientation Not on file documented as of this encounter Plan of Treatment Not on file documented as of this encounter Visit Diagnoses Not on filedocumented in this encounter Care Teams Icd 9 Coder Relationship Specialty Start Date End Date Jameel Gorman MD PCP - General 11/23/08 documented as of this encounter
--- OUTSIDE RECORDS SUMMARY | 2025-04-19 11:16 | XMS_ITS | Encounter Summary ---
Author Organization [facility] Address [address] [place] [address] Care Team Providers Care Planishing Press Operator Name Role Phone Jameel Gorman MD Primary Care Provider [phone] Encounter Details Date Type Department Care Team (Late st Contact Info) Description 10/04/2007 Outpatient Historical [facility] Medicine [place] [address] [place] [address] Gurpreet Lew MD [address] [place] [address] Social History Tobacco Use Types Packs/Day Years Used Date Smoking Tobacco: Never Assessed Comments Unknown Sex and Gender Information Value Date Recorded Sex Assigned at Not on file Legal Sex Female 3:43 AM BEHAVIORAL THERAPY COORDINATOR Gender Identity Not on file Sexual Orientation Not on file documented as of this encounter Plan of Treatment Not on file documented as of this encounter Visit Diagnoses Not on filedocumented in this encounter Care Teams Planishing Press Operator Relationship Specialty Start Date End Date Jameel Gorman MD PCP - General 11/23/08 documented as of this encounter
--- OUTSIDE RECORDS SUMMARY | 2025-04-19 11:16 | XMS_ITS | Encounter Summary ---
Author Organization [employer] Address [address] [place] [address] Care Team Providers Care Vest Busheler Name Role Phone Jameel Gorman MD Primary Care Provider [phone] Encounter Details Date Type Department Care Team (Late st Contact Info) Description 05/20/2001 Emergency [facility] WASH Justus Roldan FEVER (Primary Dx) Social History Tobacco Use Types Packs/Day Years Used Date Smoking Tobacco: Never Assessed Comments Unknown Sex and Gender Information Value Date Recorded Sex Assigned at Not on file Legal Sex Female 3:43 AM STAFF OCCUPATIONAL THERAPIST Gender Identity Not on file Sexual Orientation Not on file documented as of this encounter Plan of Treatment Not on file documented as of this encounter Visit Diagnoses Diagnosis Fever and other physiologic disturbances of temperature regulation- Primary documented in this encounter Care Teams Vest Busheler Relationship Specialty Start Date End Date Jameel Gorman MD PCP - General 11/23/08 documented as of this encounter
--- OUTSIDE RECORDS SUMMARY | 2025-04-19 11:16 | XMS_ITS | Encounter Summary ---
Author Organization [facility] Address [address] [place] [address] Care Team Providers Care Backrest Assembler Name Role Phone Jameel Gorman MD Primary Care Provider [phone] Encounter Details Date Type Department Care Team (Late st Contact Info) Description 10/04/2007 Outpatient Historical [facility] Medicine [place] [address] [place] [address] Gurpreet Lew MD [address] [place] [address] Social History Tobacco Use Types Packs/Day Years Used Date Smoking Tobacco: Never Assessed Comments Unknown Sex and Gender Information Value Date Recorded Sex Assigned at Not on file Legal Sex Female 3:43 AM TELEPHONE COIN BOX COLLECTOR Gender Identity Not on file Sexual Orientation Not on file documented as of this encounter Plan of Treatment Not on file documented as of this encounter Visit Diagnoses Not on filedocumented in this encounter Care Teams Backrest Assembler Relationship Specialty Start Date End Date Jameel Gorman MD PCP - General 11/23/08 documented as of this encounter
--- OUTSIDE RECORDS SUMMARY | 2025-04-19 11:16 | XMS_ITS | Encounter Summary ---
Author Organization [facility] Address [address] [place] [address] Care Team Providers Care Shoe Clerk Name Role Phone Jameel Gorman MD Primary Care Provider [phone] Encounter Details Date Type Department Care Team (Late st Contact Info) Description 01/11/2008 Outpatient Historical [facility] Jimi Lew MD [address] [place] [address] Unspecified Backache Social History Tobacco Use Types Packs/Day Years Used Date Smoking Tobacco: Every Day Cigarettes 2 10 Comments No Sex and Gender Information Value Date Recorded Sex Assigned at Not on file Legal Sex Female 3:43 AM ORTHOPEDIC RN Gender Identity Not on file Sexual Orientation [...] AM CDT Narrative 01/11/2008 12:44 PM CDT [address] [address] Admit Date: 01/11/2008 ANGELA DOSHI Sex: F Admit Prov: JIMI LEW Date: 1985 Primary Care Prov: JIMI LEW CMRN: [id number] Room: [facility]: [id number] IMAGING SERVICES Ordering Prov: N/A Accession Number: [id number] Interpretation THORACIC SPINE 3 VIEWS 01/11/2008 History: [...] Procedure Note Melissa Lu DO - 01/11/[address] [address] Admit Date: 01/11/2008 ANGELA DOSHI Sex: F Admit Prov: JIMI LEW Date: 1985 Primary Care Prov: JIMI LEW CMRN: [id number] [facility] [id number] IM[facility]ING [facility] Ordering Prov: N/A Interpretation THORACIC [...] unspecified documented in this encounter Care Teams Shoe Clerk Relationship Specialty Start Date End Date Jameel Gorman MD PCP - General 11/23/08 documented as of this encounter
--- OUTSIDE RECORDS SUMMARY | 2025-04-19 11:16 | XMS_ITS | Clinical Summary ---
Author Organization [facility] Address [address] [facility] [place] [address] Care Team Providers Care Supervisor Keymodule Assembly Name Role Phone Jameel Gorman MD Primary Care Provider [phone] Source Comments [facility],non-owned Affiliates and Associated Physician Practices is amultiple site organization consisting of ambulatory clinics and hospital sitesin [place], [place], [place] and [place]. This disclosure is being madepursuant to the Care Everywhere program and may not contain all information available regarding this patient. Last updated 18.[facility] Social History Tobacco Use Types Packs/Day Years Used Date Smoking Tobacco: Never Assessed Comments Unknown Sex and Gender Information Value Date Recorded Sex Assigned at Not on file Legal Sex Female 8:51 AM BICYCLE MECHANIC Gender Identity Not on file Sexual Orientation Not on file Plan of Treatment Health Maintenance Due Date Last Done Comments LIPID TESTING 1985 MAMMOGRAM 1985 HIV SCREENING 09/29/1998 HEPATITIS C SCREENING 09/25/2001 DTAP/TDAP/TD VACCINES (1 - Tdap) 09/29/2002 HEPATITIS B VACCINE (1 of 3 - 19+ 3-dose series) 09/29/2002 PAP SMEAR 09/29/2004 HPV VACCINE (1 - 3-dose SCDM series) 09/29/2010 DEPRESSION SCREENING 06/08/2024 COVID-19 VACCINE ( - 2023-2 5 season) 2025 INFLUENZA VACCINE (#1) 2025 ZOSTER VACCINE (1 of 2) 09/29/2033 [...] on patient's age to complete this topic Insurance [facility] SELF PAY NO INSURANCE Member Subscriber Plan / Payer (Ef fective for All Dates) Name:Angela Doshi Member ID:Not on file Relation to Subscriber:Not on file Name:ANGELA DOSHI Subscriber ID:Not on file (Home) Address: [address] [place] [id number] Payer ID:Not on file Group ID:Not on file Type:Self Pay Address: [place], [place] Care Teams Supervisor Keymodule Assembly Relationship Specialty Start Date End Date Jameel Gorman MD [address] [place] [address] PCP - General 10/17/09
--- OUTSIDE RECORDS SUMMARY | 2025-04-19 11:16 | XMS_ITS | Encounter Summary ---
Author Organization [facility] Address [address] [place] [address] Care Team Providers Care Roads Supervisor Name Role Phone Jameel Gorman MD Primary Care Provider [phone] Encounter Details Date Type Department Care Team (Late st Contact Info) Description 03/25/2006 Emergency [facility] Ashley Blevins MD [address] [place] [address] Emergency Dept [place], [place] [id number] Neck Sprain and Strain (Primary Dx) Social History Tobacco Use Types Packs/Day Years Used Date Smoking Tobacco: Never Assessed Comments Unknown Sex and Gender Information Value Date Recorded Sex Assigned at Not on file Legal Sex Female 3:43 AM MOTOR VEHICLE LECTURER Gender Identity Not on file Sexual Orientation Not on file documented as of this encounter Plan of Treatment Not on file documented as of this encounter Visit Diagnoses Diagnosis Sprain of neck- Primary documented in this encounter Care Teams Roads Supervisor Relationship Specialty Start Date End Date Jameel Gorman MD PCP - General 11/23/08 documented as of this encounter
[2025-04-19 19:44] LABS: Thyroid Stimulating Hormone 1.100 uIU/mL (0.465-4.680)
== END 2025-04-19 10:08 | disposition home or self-care (01) ==
LOC: ANHBWCLAB 10:08
PROVIDERS: PCP Nurse Practitioner Adult Health; Visit Provider Nurse Practitioner Adult Health
DX: E07.9 Disorder of thyroid, unspecified (principal)
CPT/HCPCS: 36415; 84443

== ENCOUNTER 2025-04-19 11:27 | Outpatient (CLI) | payer OTHER, SELFPAY ==
--- NOTE | ~2025-04-19 | CT_ITS ---
EXAMINATION: CT brain wo con DATE: 04/19/2025 12:16 INDICATION: Injury TECHNIQUE: Computed tomography (CT) of the head was performed without intravenous contrast. The dose-length product was 605.33 mGy-cm. COMPARISON: None FINDINGS: No intracranial mass effect or hemorrhage. No large acute ischemic event. Mild edematous appearing changes in the lower right frontal scalp region and right periorbital region but no severe soft tissue swelling or significant hematoma identified. Orbital and periorbital structures appear symmetric and within normal limits. Calvarium appears intact. No suspicious radiopaque foreign body seen. IMPRESSION: 1. Mild swelling in the scalp region. 2. No gross intracranial abnormality or injury. Reviewed, dictated and finalized at location A. SECURITY
--- OUTSIDE RECORDS SUMMARY | 2025-04-19 13:07 | XMS_ITS | Encounter Summary ---
Author Organization [facility] Address [address] [place] [address] Care Team Providers Care Stem Cleaning Machine Feeder Name Role Phone Jameel Gorman MD Primary Care Provider [phone] Encounter Details Date Type Department Care Team (Late st Contact Info) Description 07/27/2007 Outpatient Historical [facility] Jimi Lew MD [address] [place] [address] Social History Tobacco Use Types Packs/Day Years Used Date Smoking Tobacco: Never Assessed Comments Unknown Sex and Gender Information Value Date Recorded Sex Assigned at Not on file Legal Sex Female 3:43 AM GRAIN LOADER Gender Identity Not on file Sexual Orientation Not on file documented as of this encounter Plan of Treatment Not on file documented as of this encounter Procedures Procedure Name Priority Date/Time Associated Diagnosis Comments NM MYOCARD PERF IMAG SPECT MULT Routine 07/27/2007 7:27 AM GRAIN LOADER documented in this encounter Results * NM MYOCARD PERF IMAG SPECT MULT (07/27/2007 7:27 AM GRAIN LOADER) 07/27/2007 7:27 AM GRAIN LOADER Narrative INTERFACE SYSTEM - 07/27/2007 3:50 PM GRAIN LOADER [address] [address] Imaging Services Procedure Completion Date Ordering Provider Accession Number NM Myocardial 07/27/2007 JIMI LEW [id number] Scan Spect 10:01:00 AM Multiple [P] Reason [...] F Admitting MD: JIMI LEW Birthdate: 1985 clerical car checker:JIMI LEW CMRN:[id number] Room: [facility]: [id number] [address] Imaging Services Procedure Completion Date Ordering Provider Accession Number NM Myocardial 07/27/2007 JIMI LEW [id number] Scan Spect 10:01:00 AM Multiple [P] Impression: [...] F Admitting MD: JIMI LEW Birthdate: 1985 clerical car checker:JIMI LEW CMRN:[id number] Room: [facility]: [address] [place] [address] Procedure Note Cha Herrera MD - 07/27/[address] [address] Imaging Services Procedure Completion Date Ordering Provider AccessionNumber NM Myocardial 07/27/2007 JIMI LEW [id number] Scan Spect 10:01:00 AM Multiple [P] Reason [...] the patient was injected intravenously with 40.4 [id number] Myoview and exercise was continued for 2 [...] F Admitting MD: JIMI LEW Birthdate: 1985 clerical car checker:JIMI LEW CMRN:[id number] Room: [facility]: [phone] [address] Imaging Services Procedure Completion Date Ordering Provider AccessionNumber NM Myocardial 07/27/2007 JIMI LEW [id number] Scan Spect 10:01:00 AM Multiple [P] Impression: [...] F Admitting MD: JIMI LEW Birthdate: 1985 clerical car checker:JIMI LEW CMRN:[id number] Room: [facility]: [phone] us Jimi Lew MD NM ORDERABLES Final Re sult INTERFACE SYSTEM Refer to clinic/hospital department documented in this encounter Visit Diagnoses Not on filedocumented in this encounter Care Teams Stem Cleaning Machine Feeder Relationship Specialty Start Date End Date Jameel Gorman MD PCP - General 11/23/08 documented as of this encounter
--- OUTSIDE RECORDS SUMMARY | 2025-04-19 13:07 | XMS_ITS | Encounter Summary ---
Author Organization [facility] Address [address] [place] [address] Care Team Providers Care Charge Operator Name Role Phone Jameel Gorman MD Primary Care Provider [phone] Encounter Details Date Type Department Care Team (Late st Contact Info) Description 07/22/2007 Outpatient Historical [facility] Medicine [place] [address] [place] [address] Elsi Mehta, HUMAN RESOURCE PROFESSIONAL [address] [place] [address] Social History Tobacco Use Types Packs/Day Years Used Date Smoking Tobacco: Never Assessed Comments Unknown Sex and Gender Information Value Date Recorded Sex Assigned at Not on file Legal Sex Female 3:43 [address] 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
--- OUTSIDE RECORDS SUMMARY | 2025-04-19 13:07 | XMS_ITS | Encounter Summary ---
Author Organization [facility] Address [address] [place] [address] Care Team Providers Care Radiologic Technology Teacher Name Role Phone Jameel Gorman MD Primary Care Provider [phone] Encounter Details Date Type Department Care Team (Late st Contact Info) Description 07/22/2007 Outpatient Historical [facility] Medicine [place] [address] [place] [address] Marge Ryan MD [address] [place] [address] Social History Tobacco Use Types Packs/Day Years Used Date Smoking Tobacco: Never Assessed Comments Unknown Sex and Gender Information Value Date Recorded Sex Assigned at Not on file Legal Sex Female 3:43 AM CLINIC LEAD Gender Identity Not on file Sexual Orientation Not on file documented as of this encounter Plan of Treatment Not on file documented as of this encounter Visit Diagnoses Not on filedocumented in this encounter Care Teams Radiologic Technology Teacher Relationship Specialty Start Date End Date Jameel Gorman MD PCP - General 11/23/08 documented as of this encounter
--- OUTSIDE RECORDS SUMMARY | 2025-04-19 13:07 | XMS_ITS | Clinical Summary ---
Author Organization [facility] Address [address] [place] [address] Care Team Providers Care Wireless Manager Name Role Phone Jameel Gorman MD Primary Care Provider [phone] Allergies Active Allergy Reactions Criticality Noted Date [...] on file Legal Sex Female 3:43 AM AUTOMATION ANALYST Gender Identity Not on file Sexual Orientation Not on file Last Filed Vital Signs Vital Sign Reading Time Taken Comments Blood Pressure 106/68 01/22/2018 10:40 AM CDT Pulse 84 01/22/2018 10:40 AM CDT Temperature 37.1 C (98.8 F) 07/18/2016 12:15 PM AUTOMATION ANALYST Respiratory Rate 16 02/06/2017 11:24 AM CDT [...] RISK DNA DETECTION Routine 08/15/2010 5:00 PM AUTOMATION ANALYST CERV/VAG CYTOPATH, THIN PREP IMAGR RFLX HPV Routine 08/15/2010 5:00 PM AUTOMATION ANALYST from Last 3 Months or Most Recently Relevant to Health Maintenance Results * (ABNORMAL) CERV/VAG CYTOPATH, THIN PREP IMAGR RFLX HPV (08/15/2010 5:00 PM AUTOMATION ANALYST) REPORT STATUS FINAL [facility] CLINICAL INFORMATION [facility] Comment: LAST MENSTRUAL PERIOD [facility] [employer] [facility] Comment:06 15 2010 PREV PAP: [employer] [facility] Comment:WNL PREV BX: [employer] [facility] Comment:Information not prov ided SOURCE [facility] [employer] [facility] Comment:[employer] ADEQUACY: [employer] [facility] Comment: Satisfactory for evaluation. Endocervical/transformation zone component present. GENERAL CATEGORIZATION: (A) [employer] [facility] Comment:EPITHELIAL CELL ABNO RMALITY INTERPRETATION (A) [employer] [facility] Comment: Atypical Squamous Cells of Undetermined Significance (ASC-US) COMMENT [facility] [employer] [facility] Comment: This Pap test has been evaluated with computer assisted technology. As requested, sample is submitted for High Risk HPV DNA testing. Suggest clinical correlation and follow-up as clinically appropriate WELDING MANAGER: [employer] [facility] Comment:TUAN CORDOVA(ASCP) PATHOLOGIST [facility] Comment: Cooper Montenegro M.D., Board Certified in Anatomic Pathology and Cytopathology. (electronic signature) Test Performed at: [employer] [facility] [address] [place] [address] BERTRAND KYLE DO 08/15/2010 5:00 PM AUTOMATION ANALYST Justus Landaverde MD PATHOLOGY/CYTOLOGY ORDERABLES Final Result INTERFACE SYSTEM Refer to clinic/hospital department [facility] [address] [place] [address] * HPV HIGH RISK DNA DETECTION (08/15/2010 5:00 PM AUTOMATION ANALYST) HPV HIGH RISK DNA DETECTION NOT DETECTED [facility] Comment: Reference range: Not Detected Tested for high risk types 16,18,31,33,35,39,45,51,52, 56,58,59,68. The analytical performance characteristics of this assay, when used to test SurePath or vaginal specimens, have been determined by [employer]. Methodology: Hybrid Capture with Signal Amplification. Test Performed at: [employer] [facility] [address] [place] [address] BERTRAND KYLE DO 08/15/2010 5:00 PM AUTOMATION ANALYST 08/26/2010 10:13 AM CDT us Justus Landaverde MD PATHOLOGY/CYTOLOGY ORDERABLES Final Result INTERFACE SYSTEM Refer to clinic/hospital department [facility] [address] [address] from Last 3 Months or Most Recently Relevant to Health Maintenance Advance Directives For more information, please contact: [phone] * Full Code (Latest Code Status on [...] 7:35 PM 05/15/2009 12:25 AM Care Teams Wireless Manager Relationship Specialty Start Date End Date Jameel Gorman MD PCP - General 11/23/08
--- OUTSIDE RECORDS SUMMARY | 2025-04-19 13:07 | XMS_ITS | Encounter Summary ---
Author Organization [facility] Address [address] [place] [address] Care Team Providers Care Activity Coordinator Name Role Phone Jameel Gorman MD Primary Care Provider [phone] Encounter Details Date Type Department Care Team (Late st Contact Info) Description 07/22/2007 Orders Only [facility] Medicine [place] [address] [place] [address] Elsi Mehta NP [address] [place] [address] Social History Tobacco Use Types Packs/Day Years Used Date Smoking Tobacco: Never Assessed Comments Unknown Sex and Gender Information Value Date Recorded Sex Assigned at Not on file Legal Sex Female 3:43 AM ANIMAL ANATOMY TEACHER Gender Identity Not on file Sexual Orientation [...] nodularity. Kidneys not palpable. NEUROLOGIC: CRANIAL NERVES: crossbar frame wirer II-XII grossly intact. OFFICE PROCEDURES: RAPID FLU: [...] NEW PRESCRIPTION, 07/22/2007. LAB ORDERS: Order number: [id number] Test Ordered: RAPID FLU [id number] PATIENT EDUCATION: Instructed on disease process and [...] laboratory. STATUS: Improved. LAB ORDERS: Order number: [id number] Test Ordered: URINALYSIS W/O MICRO [id number] PATIENT EDUCATION: Instructed on BRAT diet. Increase [...] on filedocumented in this encounter Care Teams Activity Coordinator Relationship Specialty Start Date End Date Jameel Gorman MD PCP - General 11/23/08 documented as of this encounter
--- OUTSIDE RECORDS SUMMARY | 2025-04-19 13:07 | XMS_ITS | Encounter Summary ---
Author Organization [facility] Address [address] [place] [address] Care Team Providers Care Pattern Checker Name Role Phone Jameel Gorman MD Primary Care Provider [phone] Encounter Details Date Type Department Care Team (Late st Contact Info) Description 07/22/2007 Outpatient Historical [facility] Medicine [place] [address] [place] [address] Marge Ryan MD [address] [place] [address] Social History Tobacco Use Types Packs/Day Years Used Date Smoking Tobacco: Never Assessed Comments Unknown Sex and Gender Information Value Date Recorded Sex Assigned at Not on file Legal Sex Female 3:43 AM ASSISTANT FOOD SERVICE DIRECTOR Gender Identity Not on file Sexual Orientation Not on file documented as of this encounter Plan of Treatment Not on file documented as of this encounter Visit Diagnoses Not on filedocumented in this encounter Care Teams Pattern Checker Relationship Specialty Start Date End Date Jameel Gorman MD PCP - General 11/23/08 documented as of this encounter
--- OUTSIDE RECORDS SUMMARY | 2025-04-19 13:07 | XMS_ITS | Encounter Summary ---
Author Organization [facility] Address [address] [place] [address] Care Team Providers Care Heavy Equipment Engine Mechanic Name Role Phone Jameel Gorman MD Primary Care Provider [phone] Encounter Details Date Type Department Care Team (Late st Contact Info) Description 07/22/2007 Outpatient Historical [facility] Medicine [place] [address] [place] [address] Marge Ryan MD [address] [place] [address] Social History Tobacco Use Types Packs/Day Years Used Date Smoking Tobacco: Never Assessed Comments Unknown Sex and Gender Information Value Date Recorded Sex Assigned at Not on file Legal Sex Female 3:43 AM DRUM SANDER SETTER Gender Identity Not on file Sexual Orientation Not on file documented as of this encounter Plan of Treatment Not on file documented as of this encounter Visit Diagnoses Not on filedocumented in this encounter Care Teams Heavy Equipment Engine Mechanic Relationship Specialty Start Date End Date Jameel Gorman MD PCP - General 11/23/08 documented as of this encounter
--- OUTSIDE RECORDS SUMMARY | 2025-04-19 13:07 | XMS_ITS | Encounter Summary ---
Author Organization [employer] Address [address] [place] [address] Care Team Providers Care Grocery Buyer Name Role Phone Jameel Gorman MD Primary Care Provider [phone] Encounter Details Date Type Department Care Team (Late st Contact Info) Description 07/27/2007 Outpatient Historical [facility] [place] [address] [place] [address] Gustavo Herrera MD [address] [place] [address] Social History Tobacco Use Types Packs/Day Years Used Date Smoking Tobacco: Never Assessed Comments Unknown Sex and Gender Information Value Date Recorded Sex Assigned at Not on file Legal Sex Female 3:43 AM TEACHING ASSISTANT Gender Identity Not on file Sexual Orientation Not on file documented as of this encounter Plan of Treatment Not on file documented as of this encounter Visit Diagnoses Not on filedocumented in this encounter Care Teams Grocery Buyer Relationship Specialty Start Date End Date Jameel Gorman MD PCP - General 11/23/08 documented as of this encounter
--- OUTSIDE RECORDS SUMMARY | 2025-04-19 13:08 | XMS_ITS | Encounter Summary ---
Author Organization [facility] Address [address] [place] [address] Care Team Providers Care Jeep Mechanic Name Role Phone Jameel Gorman MD Primary Care Provider [phone] Encounter Details Date Type Department Care Team (Late st Contact Info) Description 10/04/2007 Outpatient Historical [facility] Medicine [place] [address] [place] [address] Gurpreet Lew MD [address] [place] [address] Social History Tobacco Use Types Packs/Day Years Used Date Smoking Tobacco: Never Assessed Comments Unknown Sex and Gender Information Value Date Recorded Sex Assigned at Not on file Legal Sex Female 3:43 AM PATHOLOGY LABORATORY AIDES TEACHER Gender Identity Not on file Sexual Orientation Not on file documented as of this encounter Plan of Treatment Not on file documented as of this encounter Visit Diagnoses Not on filedocumented in this encounter Care Teams Jeep Mechanic Relationship Specialty Start Date End Date Jameel Gorman MD PCP - General 11/23/08 documented as of this encounter
--- OUTSIDE RECORDS SUMMARY | 2025-04-19 13:08 | XMS_ITS | Encounter Summary ---
Author Organization [facility] Address [address] [place] [address] Care Team Providers Care Sewer Name Role Phone Jameel Gorman MD Primary Care Provider [phone] Encounter Details Date Type Department Care Team (Late st Contact Info) Description 03/30/2007 Outpatient Historical [facility] [address] [place] [address] Justus Landaverde MD [address] [place], [place] [address] Social History Tobacco Use Types Packs/Day Years Used Date Smoking Tobacco: Never Assessed Comments Unknown Sex and Gender Information Value Date Recorded Sex Assigned at Not on file Legal Sex Female 3:43 AM OPERATIONS BUSINESS PARTNER Gender Identity Not on file Sexual Orientation Not on file documented as of this encounter Plan of Treatment Not on file documented as of this encounter Visit Diagnoses Not on filedocumented in this encounter Care Teams Sewer Relationship Specialty Start Date End Date Jameel Gorman MD PCP - General 11/23/08 documented as of this encounter
--- OUTSIDE RECORDS SUMMARY | 2025-04-19 13:08 | XMS_ITS | Encounter Summary ---
Author Organization [facility] Address [address] [place] [address] Care Team Providers Care Drip Molder Name Role Phone Jameel Gorman MD Primary Care Provider [phone] Encounter Details Date Type Department Care Team (Late st Contact Info) Description 09/01/2007 Outpatient Historical [facility] Medicine [place] [address] [place] [address] Gurpreet Lew MD [address] [place] [address] Social History Tobacco Use Types Packs/Day Years Used Date Smoking Tobacco: Never Assessed Comments Unknown Sex and Gender Information Value Date Recorded Sex Assigned at Not on file Legal Sex Female 3:43 AM MAIL 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
--- OUTSIDE RECORDS SUMMARY | 2025-04-19 13:08 | XMS_ITS | Encounter Summary ---
Author Organization [email or web address] Address [address] [place] [address] Care Team Providers Care Software Validation Technician Name Role Phone Jameel Gorman MD Primary Care Provider [phone] Encounter Details Date Type Department Care Team (Late st Contact Info) Description 05/20/2001 Emergency [facility] WASH Justus Roldan FEVER (Primary Dx) Social History Tobacco Use Types Packs/Day Years Used Date Smoking Tobacco: Never Assessed Comments Unknown Sex and Gender Information Value Date Recorded Sex Assigned at Not on file Legal Sex Female 3:43 AM MEDICAL HOUSEKEEPER Gender Identity Not on file Sexual Orientation Not on file documented as of this encounter Plan of Treatment Not on file documented as of this encounter Visit Diagnoses Diagnosis Fever and other physiologic disturbances of temperature regulation- Primary documented in this encounter Care Teams Software Validation Technician Relationship Specialty Start Date End Date Jameel Gorman MD PCP - General 11/23/08 documented as of this encounter
--- OUTSIDE RECORDS SUMMARY | 2025-04-19 13:08 | XMS_ITS | Encounter Summary ---
Author Organization [employer] Address [address] [place] [address] Care Team Providers Care Hospital Recruiter Name Role Phone Jameel Gorman MD Primary Care Provider [phone] Encounter Details Date Type Department Care Team (Late st Contact Info) Description 02/09/2000 Emergency [facility] Mook Alcantara MD [address] [place] [address] Sprain of ankle, unspecified site (Primary Dx) Social History Tobacco Use Types Packs/Day Years Used Date Smoking Tobacco: Never Assessed Comments Unknown Sex and Gender Information Value Date Recorded Sex Assigned at Not on file Legal Sex Female 3:43 AM BUSINESS CENTER ATTENDANT Gender Identity Not on file Sexual Orientation Not on file documented as of this encounter Plan of Treatment Not on file documented as of this encounter Visit Diagnoses Diagnosis Sprain of ankle, unspecified site- Primary documented in this encounter Care Teams Hospital Recruiter Relationship Specialty Start Date End Date Jameel Gorman MD PCP - General 11/23/08 documented as of this encounter
--- OUTSIDE RECORDS SUMMARY | 2025-04-19 13:08 | XMS_ITS | Encounter Summary ---
Author Organization [facility] Address [address] [place] [address] Care Team Providers Care Him Coder Name Role Phone Jameel Gorman MD Primary Care Provider [phone] Encounter Details Date Type Department Care Team (Late st Contact Info) Description 01/11/2008 Outpatient Historical [facility] Jimi Lew MD [address] [place] [address] Unspecified Backache Social History Tobacco Use Types Packs/Day Years Used Date Smoking Tobacco: Every Day Cigarettes 2 10 Comments No Sex and Gender Information Value Date Recorded Sex Assigned at Not on file Legal Sex Female 3:43 AM FOOD DEMONSTRATOR Gender Identity Not on file Sexual Orientation [...] AM CDT Narrative 01/11/2008 12:44 PM CDT [address] [address] Admit Date: 01/11/2008 ANGELA DOSHI Sex: F Admit Prov: JIMI LEW Date: 1985 Primary Care Prov: JIMI LEW CMRN: [id number] Room: [facility]: [id number] IMAGING SERVICES Ordering Prov: N/A Accession Number: [id number] Interpretation THORACIC SPINE 3 VIEWS 01/11/2008 History: [...] Procedure Note Melissa Lu DO - 01/11/[address] [address] Admit Date: 01/11/2008 ANGELA DOSHI Sex: F Admit Prov: JIMI LEW Date: 1985 Primary Care Prov: JIMI LEW CMRN: [id number] [id number] IM[facility] Ordering Prov: N/A Interpretation THORACIC [...] unspecified documented in this encounter Care Teams Him Coder Relationship Specialty Start Date End Date Jameel Gorman MD PCP - General 11/23/08 documented as of this encounter
--- OUTSIDE RECORDS SUMMARY | 2025-04-19 13:08 | XMS_ITS | Encounter Summary ---
Author Organization [facility] Address [address] [place] [address] Care Team Providers Care Commissioning Manager Name Role Phone Jameel Gorman MD Primary Care Provider [phone] Encounter Details Date Type Department Care Team (Late st Contact Info) Description 06/30/2007 Outpatient Historical [facility] Medicine [place] [address] [facility] [place] [address] Gurpreet Lew MD [address] [place] [address] Palpitations Social History Tobacco Use Types Packs/Day Years Used Date Smoking Tobacco: Never Assessed Comments Unknown Sex and Gender Information Value Date Recorded Sex Assigned at Not on file Legal Sex Female 3:43 AM PROTECTIVE CLOTHING ISSUER Gender Identity Not on file Sexual Orientation Not on file documented as of this encounter Plan of Treatment Not on file documented as of this encounter Procedures Procedure Name Priority Date/Time Associated Diagnosis Comments CBC WITH DIFFERENTIAL Routine 06/30/2007 10:33 AM PROTECTIVE CLOTHING ISSUER CBC WITH DIFFERENTIAL Routine 06/30/2007 10:33 AM PROTECTIVE CLOTHING ISSUER TSH Routine 06/30/2007 10:33 AM PROTECTIVE CLOTHING ISSUER MAGNESIUM LEVEL Routine 06/30/2007 10:33 AM PROTECTIVE CLOTHING ISSUER LIPID PANEL Routine 06/30/2007 10:33 AM PROTECTIVE CLOTHING ISSUER COMPREHENSIVE METABOLIC PANEL Routine 06/30/2007 10:33 AM PROTECTIVE CLOTHING ISSUER documented in this encounter Results * CBC WITH DIFFERENTIAL (06/30/2007 10:33 AM PROTECTIVE CLOTHING ISSUER) NEUTROPHILS 62 45 - 70 % INTERFAC [...] K/uL INTERFACE SYSTEM 06/30/2007 10:3 3 AM PROTECTIVE CLOTHING ISSUER us Gurpreet Lew MD HEMATOLOGY ORDERABLES Ed ited INTERFACE SYSTEM Refer to clinic/hospital department * (ABNORMAL) CBC WITH DIFFERENTIAL (06/30/2007 10:33 AM PROTECTIVE CLOTHING ISSUER) Pathologist [facility] WBC 7.9 4.0 - 9.8 K/uL INTERFACE [...] fL INTERFACE SYSTEM 06/30/2007 10:3 3 AM PROTECTIVE CLOTHING ISSUER Gurpreet Lew MD HEMATOLOGY ORDERABLES Ed ited INTERFACE SYSTEM Refer to clinic/hospital department * TSH (06/30/2007 10:33 AM PROTECTIVE CLOTHING ISSUER) TSH 1.98 0.27 - 4.20 uU/mL INTERFACE SYSTEM 06/30/2007 10:3 3 AM PROTECTIVE CLOTHING ISSUER Gurpreet Lew MD CHEMISTRY ORDERABLES Mynor mason Performing Organization Address City/[facility] Co de Phone Number INTERFACE SYSTEM Refer to clinic/hospital department * MAGNESIUM LEVEL (06/30/2007 10:33 AM PROTECTIVE CLOTHING ISSUER) MAGNESIUM 2.1 1.5 - 2.5 mg/dL INTERFACE SYSTEM 06/30/2007 10:3 3 AM PROTECTIVE CLOTHING ISSUER Gurpreet Lew MD CHEMISTRY ORDERABLES Mynor mason Performing Organization Address [facility] Co de Phone Number INTERFACE SYSTEM Refer to clinic/hospital department * (ABNORMAL) COMPREHENSIVE METABOLIC PANEL (06/30/2007 10:33 AM PROTECTIVE CLOTHING ISSUER) GLUCOSE 88 65 - 99 mg/dL INTERFACE [...] [facility] at: [email or web address] Select: Lab Policies and Procedures Select: Reference Ranges - GFR 06/30/2007 10:3 3 AM PROTECTIVE CLOTHING ISSUER Gurpreet Lew MD CHEMISTRY ORDERABLES Mynor mason Performing Organization Address [facility] Phone Number INTERFACE SYSTEM Refer to clinic/hospital department * (ABNORMAL) LIPID PANEL (06/30/2007 10:33 AM PROTECTIVE CLOTHING ISSUER) CHOLESTEROL 164 100 - 199 mg/dL INTERFACE SYSTEM TRIGLYCERIDE 51 10 - 149 mg/dL INTERFACE SYSTEM HDL 36(L) 40 - 59 mg/dL INTERFACE SYSTEM LDL CALCULATED 118(H) <=99 mg/dL INTERFACE SYSTEM CHOL/HDL RATIO 4.6 2.0 - 5.0 INTER FACE SYSTEM LIPID PANEL COMMENT See Below INTERFACE SYSTEM Comment: The adult ATP and pediatric NCEP classifications for lipids are available on the [facility] at: [email or web address] Select: Lab Policies and Procedures,Current Select: Lipid Panel Interpretation 06/30/2007 10:3 3 AM PROTECTIVE CLOTHING ISSUER Gurpreet Lew MD CHEMISTRY ORDERABLES Mynor mason Performing Organization Address [facility] Co de Phone Number INTERFACE SYSTEM Refer to clinic/hospital department documented in this encounter Visit Diagnoses Diagnosis Palpitations documented in this encounter Care Teams Commissioning Manager Relationship Specialty Start Date End Date Jameel Gorman MD PCP - General 11/23/08 documented as of this encounter
--- OUTSIDE RECORDS SUMMARY | 2025-04-19 13:08 | XMS_ITS | Encounter Summary ---
Author Organization [facility] Address [address] [place] [address] Care Team Providers Care Air Compressor Mechanic Name Role Phone Jameel Gorman MD Primary Care Provider [phone] Encounter Details Date Type Department Care Team (Late st Contact Info) Description 10/04/2007 Outpatient Historical [facility] Medicine [place] [address] [place] [address] Gurpreet Lew MD [address] [place] [address] Social History Tobacco Use Types Packs/Day Years Used Date Smoking Tobacco: Never Assessed Comments Unknown Sex and Gender Information Value Date Recorded Sex Assigned at Not on file Legal Sex Female 3:43 AM DIRECTOR PEOPLESOFT Gender Identity Not on file Sexual Orientation Not on file documented as of this encounter Plan of Treatment Not on file documented as of this encounter Visit Diagnoses Not on filedocumented in this encounter Care Teams Air Compressor Mechanic Relationship Specialty Start Date End Date Jameel Gorman MD PCP - General 11/23/08 documented as of this encounter
--- OUTSIDE RECORDS SUMMARY | 2025-04-19 13:08 | XMS_ITS | Encounter Summary ---
Author Organization [employer] Address 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
--- OUTSIDE RECORDS SUMMARY | 2025-04-19 13:08 | XMS_ITS | Encounter Summary ---
Author Organization [facility] Address [address] [place] [address] Care Team Providers Care Lead Project Engineer Name Role Phone Jameel Gorman MD Primary Care Provider [phone] Encounter Details Date Type Department Care Team (Late st Contact Info) Description 06/30/2007 Outpatient Historical [facility] Medicine [place] [address] [place] [address] [address] [place] [address] Gurpreet Lew MD [address] [place] [address] Social History Tobacco Use Types Packs/Day Years Used Date Smoking Tobacco: Never Assessed Comments Unknown Sex and Gender Information Value Date Recorded Sex Assigned at Not on file Legal Sex Female 3:43 AM SURGICAL CODER Gender Identity Not on file Sexual Orientation Not on file documented as of this encounter Last Filed Vital Signs Vital Sign Reading Time Taken Comments Blood Pressure 150/78 06/30/2007 9:30 AM SURGICAL CODER Pulse 90 06/30/2007 9:30 AM SURGICAL CODER Temperature 36.1 C (97 F) 06/30/2007 9:30 AM SURGICAL CODER Respiratory Rate 16 06/30/2007 9:30 AM SURGICAL CODER Oxygen Saturation - - Inhaled Oxygen Concentration - - Weight 84.4 kg (186 lb) 06/30/2007 9:30 AM SURGICAL CODER Height - - Body Mass Index - - documented in this encounter Plan of Treatment Not on file documented as of this encounter Visit Diagnoses Not on filedocumented in this encounter Care Teams Lead Project Engineer Relationship Specialty Start Date End Date Jameel Gorman MD PCP - General 11/23/08 documented as of this encounter
--- OUTSIDE RECORDS SUMMARY | 2025-04-19 13:08 | XMS_ITS | Encounter Summary ---
Author Organization [employer] Address [address] [place] [address] Care Team Providers Care Tire Design Engineer Name Role Phone Jameel Gorman MD Primary Care Provider [phone] Encounter Details Date Type Department Care Team (Latest Contact Info) Description 11/17/2007 Outpatient Historical [facility] Justus Landaverde MD 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 Gender Identity Not on file Sexual Orientation [...] CORE IGM (11/17/2007 10:46 AM CDT) Pathologist [facility] HEPATITIS B CORE IGM NON-REACT PARVEZ NON-REACT PARVEZ [facility] Comment: Lab test performed by: [email or web address] [address] BERTRAND MCINTYRE MD Blood specimen (specimen) 11/17/2007 10:46 AM CDT 11/17/2007 10:47 AM CDT Justus Landaverde MD CHEMISTRY ORDERABLES Final Res ult Performing Organization Address [facility] [address]/[facility] de Phone Number [facility] CLIA# [id number] [address] [place] [address] * HEPATITIS C ANTIBODY (11/17/2007 10:46 AM CDT) Pathologist [facility] HEPATITIS C AB NON-REACT PARVEZ NON-REACT PARVEZ [facility] SIGNAL TO CUT OFF 0.09 <1.00 [facility] Comment: Lab test performed by: [email or web address] [address] BERTRAND MCINTYRE MD Blood specimen (specimen) 11/17/2007 10:46 AM CDT 11/17/2007 10:47 AM CDT Justus Landaverde MD CHEMISTRY ORDERABLES Final Res ult Performing Organization Address [facility] [address]/[facility] Co de Phone Number [facility] CLIA# [id number] [address] [place] [address] * HEPATITIS A IGM (11/17/2007 10:46 AM CDT) Pathologist [facility] HEPATITIS A IGM NON-REACT PARVEZ NON-REACT PARVEZ [facility] Comment: Lab test performed by: [email or web address] [address] BERTRAND MCINTYRE MD Blood specimen (specimen) 11/17/2007 10:46 AM CDT 11/17/2007 10:47 AM CDT us Justus Landaverde MD CHEMISTRY ORDERABLES Final Res ult Performing Organization Address [facility] [address]/[facility] Co de Phone Number [facility] CLIA# [id number] [address] [place] [address] * HEPATITIS B SURFACE ANTIGEN (11/17/2007 10:46 AM CDT) HEPATITIS B SURFACE AG NON-REACT PARVEZ NON-REACT PARVEZ [facility] Comment: Lab test performed by: [email or web address] [address] BERTRAND MCINTYRE MD Blood specimen (specimen) 11/17/2007 10:46 AM CDT 11/17/2007 10:47 AM CDT us Justus Landaverde MD CHEMISTRY ORDERABLES Final Res ult Performing Organization Address [facility] [address]/[facility] Co de Phone Number [facility] CLIA# [id number] [address] [place] [address] * RPR (11/17/2007 10:46 AM CDT) Pathologist [facility] RPR NON-REACTI VE NON-REACT PARVEZ [facility] Comment: Lab test performed by: [address] [address] [place] [address] BERTRAND MCINTYRE MD Blood specimen (specimen) 11/17/2007 10:46 AM CDT 11/17/2007 10:47 AM CDT us Justus Landaverde MD CHEMISTRY ORDERABLES Final Res ult Performing Organization Address [facility] [address]/[facility] Co de Phone Number [facility] CLIA# [id number] [address] [place] [address] * HIV ANTIBODY W/REFLX CONFIRMATION (11/17/2007 10:46 AM CDT) HIV-1 AND 2 ABS NON-REACT PARVEZ NON-REACT PARVEZ [facility] Comment: A NON-REACTIVE HIV 1/2 ANTIBODY RESULT DOES NOT EXCLUDE HIV INFECTION SINCE THE TIME FRAME FOR SEROCONVERSION IS VARIABLE. IF ACUTE HIV INFECTION IS SUSPECTED, ANTIBODY RETESTING AND NUCLEIC ACID AMPLIFICATION (HIV DNA/RNA) TESTING IS RECOMMENDED. Lab test performed by: [email or web address] [address] BERTRAND MCINTYRE MD Effective November 09, 2006, HIV 1/2 Antibody Screen with Reflexed Confirmation has replaced HIV-1 Antibody Screen. HIV-1 Antibody Screen is no longer offered due to lack of available kits from the block cableman. Blood specimen (specimen) 11/17/2007 10:46 AM CDT 11/17/2007 10:47 AM CDT us Justus Landaverde MD CHEMISTRY ORDERABLES Final Res ult [facility] CLIA# [id number] [address] [place] [address] documented in this encounter Visit Diagnoses Diagnosis Contact with or exposure to venereal diseases documented in this encounter Care Teams Tire Design Engineer Relationship Specialty Start Date End Date Jameel Gorman MD PCP - General 11/23/08 documented as of this encounter
--- OUTSIDE RECORDS SUMMARY | 2025-04-19 13:08 | XMS_ITS | Encounter Summary ---
Author Organization [facility] Address [address] [place] [address] Care Team Providers Care Ware Tester Name Role Phone Jameel Gorman MD Primary Care Provider [phone] Encounter Details Date Type Department Care Team (Late st Contact Info) Description 10/04/2007 Outpatient Historical [facility] Medicine [place] [address] [place] [address] Gurpreet Lew MD [address] [place] [address] Social History Tobacco Use Types Packs/Day Years Used Date Smoking Tobacco: Never Assessed Comments Unknown Sex and Gender Information Value Date Recorded Sex Assigned at Not on file Legal Sex Female 3:43 AM APPLICATIONS SUPPORT LEAD Gender Identity Not on file Sexual Orientation Not on file documented as of this encounter Plan of Treatment Not on file documented as of this encounter Visit Diagnoses Not on filedocumented in this encounter Care Teams Ware Tester Relationship Specialty Start Date End Date Jameel Gorman MD PCP - General 11/23/08 documented as of this encounter
--- OUTSIDE RECORDS SUMMARY | 2025-04-19 13:08 | XMS_ITS | Encounter Summary ---
Author Organization [facility] Address [address] [place] [address] Care Team Providers Care Senior Environmental Practice Leader Name Role Phone Jameel Gorman MD Primary Care Provider [phone] Encounter Details Date Type Department Care Team (Late st Contact Info) Description 07/01/2007 Outpatient Historical [facility] [place] [address] [place] [address] Justus Landaverde MD [address] [place], [place] [id number] Social History Tobacco Use Types Packs/Day Years Used Date Smoking Tobacco: Never Assessed Comments Unknown Sex and Gender Information Value Date Recorded Sex Assigned at Not on file Legal Sex Female 3:[address]ENTIST Gender Identity Not on file Sexual Orientation Not on file documented as of this encounter Plan of Treatment Not on file documented as of this encounter Visit Diagnoses Not on filedocumented in this encounter Care Teams Senior Environmental Practice Leader Relationship Specialty Start Date End Date Jameel Gorman MD PCP - General 11/23/08 documented as of this encounter
--- OUTSIDE RECORDS SUMMARY | 2025-04-19 13:08 | XMS_ITS | Encounter Summary ---
Author Organization [facility] Address [address] [place] [address] Care Team Providers Care Supervisor Electronics Processing Name Role Phone Jameel Gorman MD Primary Care Provider Encounter Details Date Type Department Care Team (Late st Contact Info) Description 10/04/2007 Outpatient Historical [facility] Medicine [place] [address] [place] [address] [address] [place] [address] Gurpreet Lew MD [address] [place] [address] Dysmenorrhea Social History Tobacco Use Types Packs/Day Years Used Date Smoking Tobacco: Never Assessed Comments Unknown Sex and Gender Information Value Date Recorded Sex Assigned at Not on file Legal Sex Female 3:43 AM SOIL FERTILITY SPECIALIST Gender Identity Not on file Sexual [...] QUANT, BLOOD 0.1 0.0 - 5.0 mIU/mL [facility] Comment: A result of 5-25 mIU/mL [...] Lew MD CHEMISTRY ORDERABLES Fin al Result [facility] [address] [place] [address] * PROLACTIN (10/04/2007 3:45 PM CDT) Pathologist [facility] PROLACTIN 9.45 4.79 - 23.30 ng/mL [facility] Comment: Female: Non- Reference Range 18 years - Adult = 4.79 - 23.30 ng/mL No Reference Range Established for patients less than 18 years of age. Blood specimen (specimen) 10/04/2007 3:45 PM CDT 10/04/2007 6:12 PM CDT Gurpreet Lew MD CHEMISTRY ORDERABLES Fin al Result Performing Organization Address [facility] Co de Phone Number [facility] [address] [place] [address] * GC AND CHLAMYDIA PROBE (10/04/2007 3:30 PM CDT) PRELIMINARY REPORT Pending [facility] FINAL REPORT No Neisseria gonorrhoeae detected. No Chlamydia trachomatis detected. [facility] Endocervical 10/04/2007 3:30 PM CDT 10/05/2007 9:36 AM CDT Narrative [facility] - 10/05/2007 12:15 PM CDT All [...] C OM Final Result Performing Organization Address [facility]/ZIP Co de Phone Number [facility] [address] [place] [address] documented in this encounter Visit Diagnoses Diagnosis Dysmenorrhea documented in this encounter Care Teams Supervisor Electronics Processing Relationship Specialty Start Date End Date Jameel Gorman MD PCP - General 11/23/08 documented as of this encounter
--- OUTSIDE RECORDS SUMMARY | 2025-04-19 13:08 | XMS_ITS | Encounter Summary ---
Author Organization [employer] Address [address] [place] [address] Care Team Providers Care Grease Renderer Name Role Phone Jameel Gorman MD Primary Care Provider [phone] Encounter Details Date Type Department Care Team (Late st Contact Info) Description 02/14/2002 Outpatient Historical [facility] Jameel Gorman MD [address] [place] [address] [place] [address] ABDOMINAL PAIN UNSPEC SITE (Primary Dx) Social History Tobacco Use Types Packs/Day Years Used Date Smoking Tobacco: Never Assessed Comments Unknown Sex and Gender Information Value Date Recorded Sex Assigned at Not on file Legal Sex Female 3:43 AM RADAR 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
--- OUTSIDE RECORDS SUMMARY | 2025-04-19 13:08 | XMS_ITS | Clinical Summary ---
Author Organization [facility] [employer] Address [address] [address] Care Team Providers Care Planning Advisor Name Role Phone Jameel Gorman MD Primary Care Provider [phone] Source Comments [facility],non-owned Affiliates and Associated Physician Practices is amultiple site organization consisting of ambulatory clinics and hospital sitesin [place], [place], [place] and [place]. This disclosure is being madepursuant to the Care Everywhere program and may not contain all information available regarding this patient. Last updated 18.[facility] [employer] Social History Tobacco Use Types Packs/Day Years Used Date Smoking Tobacco: Never Assessed Comments Unknown Sex and Gender Information Value Date Recorded Sex Assigned at Not on file Legal Sex Female 8:51 AM WIG DRESSER Gender Identity Not on file Sexual Orientation [...] patient's age to complete this topic Insurance [facility] SELF PAY NO INSURANCE Member Subscriber Plan / Payer (Ef fective for All Dates) Name:Angela Doshi Member ID:Not on file Relation to Subscriber:Not on file Name:ANGELA DOSHI Subscriber ID:Not on file (Home) Address: [address] [place] [address] Payer ID:Not on file Group ID:Not on file Type:Self Pay Address: [place], [place] Care Teams Planning Advisor Relationship Specialty Start Date End Date Jameel Gorman MD [address] [place] [address] PCP - General 10/17/09
--- OUTSIDE RECORDS SUMMARY | 2025-04-19 13:08 | XMS_ITS | Encounter Summary ---
Author Organization [facility] Address [address] [place] [address] Care Team Providers Care Principal Clerk Name Role Phone Jameel Gorman MD Primary Care Provider [phone] Encounter Details Date Type Department Care Team (Late st Contact Info) Description 09/01/2007 Outpatient Historical [facility] Medicine [place] [address] [place] [address] Gurpreet Lew MD [address] [place] [address] Social History Tobacco Use Types Packs/Day Years Used Date Smoking Tobacco: Never Assessed Comments Unknown Sex and Gender Information Value Date Recorded Sex Assigned at Not on file Legal Sex Female 3:43 AM CLIMATE CHANGE RISK ASSESSOR Gender Identity Not on file Sexual Orientation Not on file documented as of this encounter Plan of Treatment Not on file documented as of this encounter Visit Diagnoses Not on filedocumented in this encounter Care Teams Principal Clerk Relationship Specialty Start Date End Date Jameel Gorman MD PCP - General 11/23/08 documented as of this encounter
--- OUTSIDE RECORDS SUMMARY | 2025-04-19 13:08 | XMS_ITS | Encounter Summary ---
Author Organization [employer] Address [address] [place] [address] Care Team Providers Care Rotary Driller Prospecting Name Role Phone Jameel Gorman MD Primary Care Provider [phone] Encounter Details Date Type Department Care Team (Late st Contact Info) Description 12/15/1999 Emergency [facility] Justus Roldan Sprain of ankle, unspecified site (Primary Dx) Social History Tobacco Use Types Packs/Day Years Used Date Smoking Tobacco: Never Assessed Comments Unknown Sex and Gender Information Value Date Recorded Sex Assigned at Not on file Legal Sex Female 3:43 AM LEATHER SPONGER Gender Identity Not on file Sexual Orientation Not on file documented as of this encounter Plan of Treatment Not on file documented as of this encounter Visit Diagnoses Diagnosis Sprain of ankle, unspecified site- Primary documented in this encounter Care Teams Rotary Driller Prospecting Relationship Specialty Start Date End Date Jameel Gorman MD PCP - General 11/23/08 documented as of this encounter
--- OUTSIDE RECORDS SUMMARY | 2025-04-19 13:08 | XMS_ITS | Encounter Summary ---
Author Organization [facility] Address [address] [place] [address] Care Team Providers Care Stretching Machine Tender Frame Name Role Phone Jameel Gorman MD Primary Care Provider [phone] Encounter Details Date Type Department Care Team (Late st Contact Info) Description 10/04/2007 Outpatient Historical [facility] Medicine [place] [address] [place] [address] Gurpreet Lew MD [address] [place] [address] Social History Tobacco Use Types Packs/Day Years Used Date Smoking Tobacco: Never Assessed Comments Unknown Sex and Gender Information Value Date Recorded Sex Assigned at Not on file Legal Sex Female 3:43 AM OB/GYN Gender Identity Not on file Sexual Orientation Not on file documented as of this encounter Plan of Treatment Not on file documented as of this encounter Visit Diagnoses Not on filedocumented in this encounter Care Teams Stretching Machine Tender Frame Relationship Specialty Start Date End Date Jameel Gorman MD PCP - General 11/23/08 documented as of this encounter
--- OUTSIDE RECORDS SUMMARY | 2025-04-19 13:08 | XMS_ITS | Encounter Summary ---
Author Organization [facility] Address [address] [place] [address] Care Team Providers Care Sheet Ironworker Name Role Phone Jameel Gorman MD Primary Care Provider [phone] Encounter Details Date Type Department Care Team (Late st Contact Info) Description 09/01/[address] [facility] [address] [facility] [address] [place] [address] Gurpreet Lew MD [address] [place] [address] Social History Tobacco Use Types Packs/Day Years Used Date Smoking Tobacco: Never Assessed Comments Unknown Sex and Gender Information Value Date Recorded Sex Assigned at Not on file Legal Sex Female 3:43 AM DETENTION DEPUTY Gender Identity Not on file Sexual Orientation [...] smoked for 5 to 10 years. 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 ALCOHOL: The patient drinks alcohol 5 to [...] NEW PRESCRIPTION, 09/01/2007. LAB ORDERS: Order number: [id number] Test Ordered: SMOKING CESSATION, 3-10 MIN 20878 461.9-SINUSITIS UNSPECIFIED ASSESSMENT: The patient's acute sinusitis [...] on filedocumented in this encounter Care Teams Sheet Ironworker Relationship Specialty Start Date End Date Jameel Gorman MD PCP - General 11/23/08 documented as of this encounter
--- OUTSIDE RECORDS SUMMARY | 2025-04-19 13:08 | XMS_ITS | Encounter Summary ---
Author Organization [facility] Address [address] [place] [address] Care Team Providers Care Sled Maker Name Role Phone Jameel Gorman MD Primary Care Provider Encounter Details Date Type Department Care Team (Late st Contact Info) Description 09/01/2007 Outpatient Historical [facility] Medicine [place] [address] [place] [address] Gurpreet Lew MD [address] [place] [address] Social History Tobacco Use Types Packs/Day Years Used Date Smoking Tobacco: Never Assessed Comments Unknown Sex and Gender Information Value Date Recorded Sex Assigned at Not on file Legal Sex Female 3:43 AM COUNSELING CENTER DIRECTOR Gender Identity Not on file Sexual Orientation Not on file documented as of this encounter Plan of Treatment Not on file documented as of this encounter Visit Diagnoses Not on filedocumented in this encounter Care Teams Sled Maker Relationship Specialty Start Date End Date Jameel Gorman MD PCP - General 11/23/08 documented as of this encounter
--- OUTSIDE RECORDS SUMMARY | 2025-04-19 13:08 | XMS_ITS | Encounter Summary ---
Author Organization [employer] Address [address] [place] [address] Care Team Providers Care Autocad Operator Name Role Phone Jameel Gorman MD Primary Care Provider [phone] Encounter Details Date Type Department Care Team (Late st Contact Info) Description 10/19/2007 Outpatient Historical [facility] Gurpreet Lew MD [address] [place] [address] Other, [facility] NO ADDRESS ON FILE Abdominal Pain, Right Lower Quadrant Social History Tobacco Use Types Packs/Day Years Used Date Smoking Tobacco: Never Assessed Comments Unknown Sex and Gender Information Value Date Recorded Sex Assigned at Not on file Legal Sex Female 3:43 AM CABLE BRAIDER Gender Identity Not on file Sexual Orientation Not on file documented as of this encounter Plan of Treatment Not on file documented as of this encounter Visit Diagnoses Diagnosis Abdominal pain, right lower quadrant documented in this encounter Care Teams Autocad Operator Relationship Specialty Start Date End Date Jameel Gorman MD PCP - General 11/23/08 documented as of this encounter
--- OUTSIDE RECORDS SUMMARY | 2025-04-19 13:08 | XMS_ITS | Encounter Summary ---
Author Organization [facility] Address [address] [place] [address] Care Team Providers Care Wellness Director Name Role Phone Jameel Gorman MD Primary Care Provider [phone] Encounter Details Date Type Department Care Team (Late st Contact Info) Description 05/10/2007 Outpatient Historical [facility] [place] [address] [place] [address] Justus Landaverde MD [address] [place], [place] [address] Social History Tobacco Use Types Packs/Day Years Used Date Smoking Tobacco: Never Assessed Comments Unknown Sex and Gender Information Value Date Recorded Sex Assigned at Not on file Legal Sex Female 3:43 AM CORPORATE TAX PREPARER Gender Identity Not on file Sexual Orientation Not on file documented as of this encounter Plan of Treatment Not on file documented as of this encounter Visit Diagnoses Not on filedocumented in this encounter Care Teams Wellness Director Relationship Specialty Start Date End Date Jameel Gorman MD PCP - General 11/23/08 documented as of this encounter
--- OUTSIDE RECORDS SUMMARY | 2025-04-19 13:08 | XMS_ITS | Encounter Summary ---
Author Organization [employer] Address [address] [place] [address] Care Team Providers [employer] Associate Name Role Phone Jameel Gorman MD Primary Care Provider [phone] Encounter Details Date Type Department Care Team (Late st Contact Info) Description 08/14/2007 Emergency [facility] Er, Authorized P NO ADDRESS ON FILE Mook Rodgers MD [address] [place] [phone] Social History Tobacco Use Types Packs/Day Years Used Date Smoking Tobacco: Never Assessed Comments Unknown Sex and Gender Information Value Date Recorded Sex Assigned at Not on file Legal Sex Female 3:43 AM FLOSSER Gender Identity Not on file Sexual Orientation Not on file documented as of this encounter Plan of Treatment Not on file documented as of this encounter Procedures Procedure Name Priority Date/Time Associated Diagnosis Comments US PELVIS + TRANSVAG NON OB Stat 08/14/2007 11:00 AM FLOSSER CBC WITH DIFFERENTIAL Stat 08/14/2007 10:19 AM FLOSSER LIPASE Stat 08/14/2007 10:19 AM FLOSSER HEPATIC FUNCTION PANEL Stat 08/14/2007 10:19 AM FLOSSER BASIC METABOLIC PANEL Stat 08/14/2007 10:19 AM FLOSSER URINALYSIS WITH REFLEX CULTURE Stat 08/14/2007 10:10 AM FLOSSER URINALYSIS W/REFLEX MICROSCOPIC Stat 08/14/2007 10:10 AM FLOSSER HCG QUALITATIVE, URINE Stat 08/14/2007 10:10 AM FLOSSER documented in this encounter Results * US PELVIS + TRANSVAG NON OB (08/14/2007 11:00 AM FLOSSER) Anatomical Region Laterality Modality Pelvis Other 08/14/2007 11:0 0 AM FLOSSER Narrative 08/14/2007 11:58 AM FLOSSER [address] [address] Admit Date: 08/14/2007 JOSE ANGELA R Sex: F Admit Prov: ER, AUTHORIZED P Date: 1985 Primary Care Prov: JIMI MCGARRY CMRN: [id number] Room: [facility] SSN: [id number] IMAGING SERVICES Ordering Prov: N/A Accession Number: [id number] Interpretation TRANSABDOMINAL PELVIC ULTRASOUND, 08/14/2007 History: Left [...] MD Procedure Note Provider, Historical - 08/14/[address] [place] [address] Admit Date: 08/14/2007 ANGELA DOSHI Sex: F Admit Prov: YANCI NEWTON Date: 1985 Primary Care Prov: JIMI MCGARRY CMRN: [id number] Room: [facility] SSN: [id number] IMAGING SERVICES Ordering Prov: N/A Interpretation TRANSABDOMINAL [...] (ABNORMAL) CBC WITH DIFFERENTIAL (08/14/2007 10:19 AM FLOSSER) RBC 4.72 3.90 - 4.90 M/uL [facility] MCHC 33.7 31.5 - 35.5 % [facility] MCV 89.2 82.0 - 99.[address] [facility] PLATELETS 351(H) 140 - 350 K/uL [facility] HEMOGLOBIN 14.2 11.8 - 14.8 g/dL [facility] RDW 12.5 11.5 - 14.5 % [facility] WBC 8.7 4.0 - 9.8 K/uL [facility] MPV 10.3 9.3 - 12.[address] [facility] MCH 30.1 27.2 - 32.[address] [facility] HEMATOCRIT 42.1 35.5 - 44.0 % [facility] RDW-STDEV 39.7 37.1 - 48.[address] [facility] LYMPHOCYTES 31 16 - 45 % [facility] LYMPHOCYTE ABSOLUTE 2.70 0.70 - 4.50 K/uL [facility] BASOPHILS 0 0 - 2 % [facility] BASOPHILS ABSOLUTE 0.02 0.00 - 0.20 K/uL [facility] MONOCYTES 5 3 - 13 % [facility] MONOCYTE ABSOLUTE 0.47 0.10 - 1.30 K/uL [facility] NEUTROPHILS 61 45 - 70 % [facility] NEUTROPHIL ABSOLUTE 5.36 1.90 - 7.00 K/uL [facility] EOSINOPHILS 2 0 - 7 % [facility] EOSINOPHIL ABSOLUTE 0.19 0.00 - 0.70 K/uL [facility] Blood specimen (specimen) 08/14/2007 10:19 AM FLOSSER 08/14/2007 10:20 AM FLOSSER us Mook Rodgers MD HEMATOLOGY ORDERABLES Edited [facility] [address] [place] [address] * (ABNORMAL) HEPATIC FUNCTION PANEL (08/14/2007 10:19 AM FLOSSER) BILIRUBIN TOTAL 0.3 0.2 - 1.0 mg/dL [facility] ALT 10 0 - 31 U/L [facility] AST 11(L) 12 - 32 U/L [facility] ALBUMIN 4.2 3.4 - 4.8 g/dL [facility] BILIRUBIN DIRECT <0.1 0.0 - 0.3 mg/dL [facility] TOTAL PROTEIN 7.4 6.0 - 8.3 g/dL [facility] ALKALINE PHOSPHATASE 62 35 - 104 U/L [facility] Blood specimen (specimen) 08/14/2007 10:19 AM FLOSSER 08/14/2007 10:20 AM FLOSSER Mook Rodgers MD CHEMISTRY ORDERABLES Final Res ult Performing Organization Address [facility] Co de Phone Number [facility] [address] [place] [address] * LIPASE (08/14/2007 10:19 AM FLOSSER) LIPASE 21 13 - 60 U/L [facility] Blood specimen (specimen) 08/14/2007 10:19 AM FLOSSER 08/14/2007 10:20 AM FLOSSER us Mook Rodgers MD CHEMISTRY ORDERABLES Final Res ult Performing Organization Address [facility] de Phone Number [facility] [address] [place] [address] * (ABNORMAL) BASIC METABOLIC PANEL (08/14/2007 10:19 AM FLOSSER) CO2 29 22 - 30 mmol/L [facility] CALCIUM 9.4 8.6 - 10.2 mg/dL [facility] POTASSIUM 3.9 3.5 - 4.9 mmol/L [facility] GLUCOSE 100(H) 65 - 99 mg/dL [facility] CHLORIDE 105 96 - 108 mmol/L [facility] BUN 8 6 - 20 mg/dL [facility] CREATININE 0.63 0.51 - 0.95 mg/dL [facility] SODIUM 141 135 - 145 mmol/L [facility] GFR, >60 >=60 mL/min/1. [address] [facility] GFR >60 >=60 mL/min/1. [address] [facility] Comment: Estimated GFR rate interpretative information for both Americans and non- Americans is available on the [facility] Intranet at: [email or web address] Select: Lab Policies and Procedures Select: Reference Ranges - GFR Blood specimen (specimen) 08/14/2007 10:19 AM FLOSSER 08/14/2007 10:20 AM FLOSSER Mook Rodgers MD CHEMISTRY ORDERABLES Edited Performing Organization Address City/[facility]/ZIP Co de Phone Number [facility] [address] [place] [address] * URINALYSIS (08/14/2007 10:10 AM FLOSSER) COLOR UA Yellow [facility] NITRITE UA Negative Negative [facility] BILIRUBIN UA Negative Negative [facility] PH UA 6.5 5.0 - 8.0 [facility] KETONES UA Negative Negative [facility] CLARITY UA Clear Clear [facility] BLOOD UA Negative Negative [facility] PROTEIN UA Negative Negative [facility] LEUKOCYTE ESTERASE UA Negative Negative [facility] UROBILINOGEN UA <1 <1 mg/dL [facility] SPECIFIC GRAVITY UA 1.015 1.001 - 1.035 [facility] GLUCOSE UA Negative Negative [facility] Urine, clean catch 08/14/2007 10:10 AM FLOSSER 08/14/2007 10:14 AM FLOSSER us Mook Rodgers MD URINE ORDERABLES Final Result Performing Organization Address City/[facility]/ZIP Co de Phone Number [facility] [address] [place] [address] * URINALYSIS WITH REFLEX CULTURE (08/14/2007 10:10 AM FLOSSER) URINE CULTURE ORDER Not Indicated [facility] Comment: Criteria for a reflex culture include one or more of the following: Abnormal WBCs, RBCs or bacteria. Lack of qualifying criteria does not exclude the possibility of a urinary tract infection. Dilute urine, drug interference, etc. may decrease the sensitivity of the criteria analytes. Urine, clean catch 08/14/2007 10:10 AM FLOSSER 08/14/2007 10:14 AM FLOSSER Mook Rodgers MD URINE ORDERABLES Final Result Performing Organization Address [facility]/ZIP Co de Phone Number [facility] [address] [place] [address] * BETA HCG QUALITATIVE, URINE (08/14/2007 10:10 AM FLOSSER) SPECIFIC GRAVITY UA 1.015 1.001 - 1.035 [facility] HCG QUAL URINE Negative Negative [facility] Urine specimen (specimen) 08/14/2007 10:10 AM FLOSSER 08/14/2007 10:14 AM FLOSSER Mook Rodgers MD URINE ORDERABLES Final Result Performing Organization Address City/[facility] Co de Phone Number [facility] [address] [place] [address] documented in this encounter Visit Diagnoses Not on filedocumented in this encounter Care Teams [employer] Associate Relationship Specialty Start Date End Date Jameel Gorman MD PCP - General 11/23/08 documented as of this encounter
== END 2025-04-19 11:28 | disposition home or self-care (01) ==
LOC: ANHIMG 11:28
PROVIDERS: PCP Nurse Practitioner Adult Health; Visit Provider Nurse Practitioner Adult Health
DX: R22.0 Localized swelling, mass and lump, head (principal); R51.9 Headache, unspecified; Z87.828 Personal history of other (healed) physical injury and trauma
CPT/HCPCS: 36415; 70450; 84443